=== PATIENT | female | born 1945 | race Caucasian/White ===

== ENCOUNTER 2017-11-18 13:16 | Emergency (ER) | payer MEDICARE ==
[2017-11-18 13:34] LABS: APPEARANCE,URINE CLEAR (CLEAR); BILIRUBIN,URINE NEGATIVE (NEGATIVE); COLOR,URINE YELLOW (YELLOW); GLUCOSE, URINE (UA) NEGATIVE (NEGATIVE); KETONES,URINE NEGATIVE (NEGATIVE); LEUKOCYTE ESTERASE ,URINE SMALL (NEGATIVE); NITRATE,URINE NEGATIVE (NEGATIVE); OCCULT BLOOD,URINE SMALL (NEGATIVE); PH,URINE 6.5 (5.0-8.0); PROTEIN,URINE NEGATIVE (NEGATIVE); UROBILINOGEN,URINE 0.2 mg/dL (0.2-1.0)
[2017-11-18 13:53] LABS: RBC,URINE 0-1 /HPF (0-1)
[2017-11-18 13:54] LABS: BACTERIA,URINE Rare /HPF (None Seen); SQUAMOUS EPITHELIAL CELL,UR Rare /LPF (0-2)
== END 2017-11-18 14:29 | disposition home or self-care (01) ==
LOC: EDH 13:16
DX: N39.0 Urinary tract infection, site not specified (principal)
CPT/HCPCS: 81001; 87088

== ENCOUNTER → 2019-04-30 | Outpatient (CLI) | payer OTHER | END | disposition home or self-care (01) | LOC: OIH 13:10 | PROVIDERS: ATTEND Internal Medicine Cardiovascular Disease | DX: Z13.6 Encounter for screening for cardiovascular disorders (principal) | CPT/HCPCS: 75571 ==

== ENCOUNTER 2021-03-16 11:27 | Emergency (ER) | payer MEDICARE, OTHER ==
[2021-03-16] MEDS ORDERED: IOHEXOL 350 MG/ML 100ML INFUS..BTL IV ONE (12:22)
[2021-03-16 12:32] LABS: BASOPHILS % (AUTO) 0.6 % (0.0-5.0); EOSINOPHILS % (AUTO) 2.5 % (0.0-8.0); HEMATOCRIT 37.9 % (36-48); LYMPHOCYTES % (AUTO) 16.3 % (21.0-51.0); MEAN CORPUSCULAR HEMOGLOBIN 29.3 pg (27.0-33.0); MEAN CORPUSCULAR HGB CONC 33.2 g/dL (32.0-36.0); MEAN CORPUSCULAR VOLUME 88.1 fL (79-99); MONOCYTES % (AUTO) 8.5 % (3.0-13.0); NEUTROPHILS % (AUTO) 71.7 % (40.0-77.0); PLATELET COUNT (AUTO) 188 K/uL (130-400); RED CELL DISTRIBUTION WIDTH 12.5 % (11.0-15.5); WHITE BLOOD COUNT (AUTO) 5.2 K/uL (4.8-10.8)
[2021-03-16 12:41] LABS: CREATININE 0.7 mg/dL (0.5-1.5); POTASSIUM 4.6 mmol/L (3.5-5.1)
[2021-03-16 12:43] LABS: INR 0.98 (0.85-1.15); PROTHROMBIN TIME 10.7 SEC (9.6-11.6)
[2021-03-16 12:45] LABS: PARTIAL THROMBOPLASTIN TIME 24.8 SEC (26.3-35.5)
[2021-03-16 12:46] LABS: ALBUMIN 3.6 g/dL (3.5-5.0); BILIRUBIN,TOTAL 0.4 mg/dL (0.2-1.0); TOTAL PROTEIN, SERUM 7.6 g/dL (6.0-8.3)
[2021-03-16] MEDS ORDERED: ACETAMINOPHEN-CODEINE 300/30MG TAB ONE (13:58)
[2021-03-16 14:09] LABS: APPEARANCE,URINE Clear (CLEAR); BILIRUBIN,URINE Negative (NEGATIVE); COLOR,URINE Yellow (YELLOW); GLUCOSE, URINE (UA) Negative (NEGATIVE); KETONES,URINE Negative (NEGATIVE); LEUKOCYTE ESTERASE ,URINE Negative (NEGATIVE); NITRATE,URINE Negative (NEGATIVE); OCCULT BLOOD,URINE Negative (NEGATIVE); PROTEIN,URINE Negative (NEGATIVE); UROBILINOGEN,URINE 0.2 mg/dL (0.2-1.0)
[2021-03-16 14:17] LABS: AMPHET/METH SCREEN,URINE NEGATIVE (NEGATIVE); BARBITURATE SCREEN, URINE NEGATIVE (NEGATIVE); BENZODIAZEPINES SCREEN,URINE NEGATIVE (NEGATIVE); CANNABINOID SCREEN,URINE NEGATIVE (NEGATIVE); COCAINE SCREEN,URINE NEGATIVE (NEGATIVE); OPIATE SCREEN,URINE NEGATIVE (NEGATIVE); PHENCYCLIDINE SCREEN,URINE NEGATIVE (NEGATIVE)
== END 2021-03-16 14:16 | disposition home or self-care (01) ==
LOC: EDH 11:27
DX: S10.83XA Contusion of other specified part of neck, initial encounter (principal); S80.12XA Contusion of left lower leg, initial encounter; S80.11XA Contusion of right lower leg, initial encounter; S09.90XA Unspecified injury of head, initial encounter; Z87.891 Personal history of nicotine dependence; V49.3XXA Car occupant (driver) (passenger) injured in unspecified nontraffic accident, initial encounter; Y93.89 Activity, other specified; Y92.89 Other specified places as the place of occurrence of the external cause; Y99.8 Other external cause status
CPT/HCPCS: 36415; 70450; 71045; 71260; 72040; 72125; 73590 ×2; 74177; 80053; 80305; 81003; 84484; 85025; 85610; 85730; 93005; 99285; Q9967

== ENCOUNTER → 2021-07-28 | Outpatient (CLI) | payer MEDICARE | END | disposition home or self-care (01) | LOC: RAH 12:26 | PROVIDERS: ATTEND Internal Medicine Pulmonary Disease | DX: J43.8 Other emphysema (principal); J98.4 Other disorders of lung; J47.9 Bronchiectasis, uncomplicated; R91.1 Solitary pulmonary nodule | CPT/HCPCS: 71250 ==

== ENCOUNTER → 2021-11-14 | Outpatient (CLI) | payer MEDICARE ==
[~2021-11-14] MED LIST: GADOTERATE MEGLUMINE 10 MMOL/20 ML VIAL IV ONE
== END | disposition home or self-care (01) ==
LOC: RAH 12:29
PROVIDERS: ATTEND Internal Medicine
DX: M47.26 Other spondylosis with radiculopathy, lumbar region (principal); M48.07 Spinal stenosis, lumbosacral region
CPT/HCPCS: 72148

== ENCOUNTER → 2022-01-05 | Outpatient (CLI) | payer MEDICARE | END | disposition home or self-care (01) | LOC: RAH 13:55 | PROVIDERS: ATTEND Internal Medicine Pulmonary Disease | DX: R91.1 Solitary pulmonary nodule (principal); I25.10 Atherosclerotic heart disease of native coronary artery without angina pectoris | CPT/HCPCS: 71250 ==

== ENCOUNTER → 2022-01-20 | Outpatient (CLI) | payer MEDICARE | END | disposition home or self-care (01) | LOC: RAH 12:46 | PROVIDERS: ATTEND Internal Medicine | DX: R13.10 Dysphagia, unspecified (principal) | CPT/HCPCS: 76536 ==

== ENCOUNTER → 2022-04-05 | Outpatient (CLI) | payer MEDICARE | END | disposition home or self-care (01) | LOC: RAH 10:41 | PROVIDERS: ATTEND Internal Medicine | DX: M47.816 Spondylosis without myelopathy or radiculopathy, lumbar region (principal); M47.817 Spondylosis without myelopathy or radiculopathy, lumbosacral region; I70.0 Atherosclerosis of aorta; G89.29 Other chronic pain; M54.9 Dorsalgia, unspecified | CPT/HCPCS: 72100 ==

== ENCOUNTER 2022-04-22 17:14 | Emergency (ER) | payer MEDICARE ==
[~2022-04-22] VITALS: Ht 157.5 cm; Wt 63.5 kg
[2022-04-22 17:16] VITALS: BP 154/62
[2022-04-22 17:56] LABS: APPEARANCE,URINE Cloudy (CLEAR); BILIRUBIN,URINE Negative (NEGATIVE); COLOR,URINE Yellow (YELLOW); GLUCOSE, URINE (UA) Negative (NEGATIVE); KETONES,URINE Negative (NEGATIVE); LEUKOCYTE ESTERASE ,URINE Large (NEGATIVE); NITRATE,URINE Negative (NEGATIVE); OCCULT BLOOD,URINE Large (NEGATIVE); PROTEIN,URINE Negative (NEGATIVE); UROBILINOGEN,URINE 0.2 mg/dL (0.2-1.0)
[2022-04-22] MEDS ORDERED: CEFTRIAXONE 1G VIAL IM ONE (18:00)
[2022-04-22] MEDS ORDERED: PHENAZOPYRIDINE HCL 200 MG TABLET PO ONE (18:00)
[2022-04-22 18:11] LABS: BACTERIA,URINE Few /HPF (None Seen); WBC,URINE 26-50 /HPF (0-1)
[2022-04-22 18:12] LABS: SQUAMOUS EPITHELIAL CELL,UR Rare /HPF (0-2)
[2022-04-22] MEDS ORDERED: CEPH500B PO (18:13)
[2022-04-22] MEDS ORDERED: PHEN-847 PO (18:13)
== END 2022-04-22 18:24 | disposition home or self-care (01) ==
LOC: EDH 17:14
DX: N39.0 Urinary tract infection, site not specified (principal); R30.0 Dysuria; I10 Essential (primary) hypertension
CPT/HCPCS: 81001; 87088; J0696

== ENCOUNTER 2022-06-21 20:19 | Emergency (ER) | payer MEDICARE ==
[~2022-06-21] VITALS: Ht 157.5 cm; Wt 58.5 kg
[~2022-06-21 20:19] MED LIST changes: +CEPH500B PO; -GADOTERATE MEGLUMINE 10 MMOL/20 ML VIAL IV ONE; +PHEN-847 PO
[2022-06-21 20:20] VITALS: BP 179/70
[2022-06-21] MEDS ORDERED: PHENAZOPYRIDINE HCL 200 MG TABLET PO ONE (21:00)
[2022-06-21] MEDS ORDERED: CEFTRIAXONE 1G VIAL IM ONE (21:00)
[2022-06-21 21:05] LABS: APPEARANCE,URINE CLEAR (CLEAR); BILIRUBIN,URINE NEGATIVE (NEGATIVE); COLOR,URINE YELLOW (YELLOW); GLUCOSE, URINE (UA) NEGATIVE (NEGATIVE); KETONES,URINE NEGATIVE (NEGATIVE); LEUKOCYTE ESTERASE ,URINE MODERATE (NEGATIVE); NITRATE,URINE NEGATIVE (NEGATIVE); OCCULT BLOOD,URINE TRACE-INTACT (NEGATIVE); PROTEIN,URINE NEGATIVE (NEGATIVE); UROBILINOGEN,URINE 0.2 mg/dL (0.2-1.0)
[2022-06-21] MEDS ORDERED: LIDOCAINE HCL 1% 20 ML VIAL ONE (21:06)
[2022-06-21] MEDS ORDERED: CEPH500B PO (21:12)
[2022-06-21] MEDS ORDERED: PHEN-847 PO (21:12)
[2022-06-21 21:23] LABS: BACTERIA,URINE Rare /HPF (None Seen); SQUAMOUS EPITHELIAL CELL,UR Rare /HPF (0-2)
== END 2022-06-21 21:23 | disposition home or self-care (01) ==
LOC: EDH 20:19
DX: N39.0 Urinary tract infection, site not specified (principal); R03.0 Elevated blood-pressure reading, without diagnosis of hypertension; Z90.49 Acquired absence of other specified parts of digestive tract; Z79.899 Other long term (current) drug therapy
CPT/HCPCS: 99283; 87088; 81001; 96372; J0696

== ENCOUNTER → 2022-07-03 | Outpatient (CLI) | payer MEDICARE | END | disposition home or self-care (01) | LOC: RAH 08:28 | PROVIDERS: ATTEND Internal Medicine | DX: N39.0 Urinary tract infection, site not specified (principal); N32.89 Other specified disorders of bladder | CPT/HCPCS: 76857 ==

== ENCOUNTER 2023-02-04 11:50 | Emergency (ER) | payer OTHER, MEDICARE ==
[~2023-02-04] VITALS: Ht 157.5 cm; Wt 53.5 kg
[2023-02-04 12:36] LABS: BASOPHILS % (AUTO) 0.5 % (0.0-5.0); EOSINOPHILS % (AUTO) 0.8 % (0.0-8.0); HEMATOCRIT 38.6 % (36-48); LYMPHOCYTES % (AUTO) 23.1 % (21.0-51.0); MEAN CORPUSCULAR HEMOGLOBIN 29.4 pg (27.0-33.0); MEAN CORPUSCULAR HGB CONC 32.6 g/dL (32.0-36.0); MEAN CORPUSCULAR VOLUME 90.2 fL (79-99); MONOCYTES % (AUTO) 9.4 % (3.0-13.0); PLATELET COUNT (AUTO) 174 K/uL (130-400); RED BLOOD CELL COUNT(AUTO) 4.28 MIL/uL (4.00-5.50); RED CELL DISTRIBUTION WIDTH 12.6 % (11.0-15.5); WHITE BLOOD COUNT (AUTO) 6.4 K/uL (4.8-10.8)
[2023-02-04 12:47] LABS: INR 0.93 (0.85-1.15); PROTHROMBIN TIME 10.2 SEC (9.6-11.6)
[2023-02-04 12:48] LABS: PARTIAL THROMBOPLASTIN TIME 25.7 SEC (26.3-35.5)
[2023-02-04 12:55] LABS: CREATININE 0.8 mg/dL (0.5-1.5); POTASSIUM 4.7 mmol/L (3.5-5.1)
[2023-02-04 13:05] LABS: ALBUMIN 3.7 g/dL (3.5-5.0); TOTAL PROTEIN, SERUM 7.6 g/dL (6.0-8.3)
[2023-02-04 13:55] VITALS: BP 172/68
[2023-02-04 14:28] LABS: APPEARANCE,URINE CLEAR (CLEAR); BILIRUBIN,URINE NEGATIVE (NEGATIVE); COLOR,URINE COLORLESS (YELLOW); GLUCOSE, URINE (UA) NEGATIVE (NEGATIVE); KETONES,URINE NEGATIVE (NEGATIVE); LEUKOCYTE ESTERASE ,URINE NEGATIVE Leu/uL (NEGATIVE); NITRATE,URINE NEGATIVE (NEGATIVE); OCCULT BLOOD,URINE NEGATIVE (NEGATIVE); PROTEIN,URINE NEGATIVE (NEGATIVE); UROBILINOGEN,URINE 0.2 mg/dL (0.2-1.0)
[2023-02-04] MEDS ORDERED: BISA-72 PO (14:48)
== END 2023-02-04 14:54 | disposition home or self-care (01) ==
LOC: EDH 11:50
DX: K59.00 Constipation, unspecified (principal); R10.32 Left lower quadrant pain; Z79.899 Other long term (current) drug therapy; Z87.440 Personal history of urinary (tract) infections; Z90.89 Acquired absence of other organs
CPT/HCPCS: 36415; 74176; 80053; 81003; 82550; 83874; 84484; 85025; 85610; 85730; 93005

== ENCOUNTER → 2023-10-23 | Outpatient (CLI) | payer OTHER ==
[~2023-10-23] MED LIST changes: +BISA-72 PO; +IOHEXOL 350 MG/ML 100ML INFUS..BTL IV ONE
== END | disposition home or self-care (01) ==
LOC: RAH 07:51
PROVIDERS: ATTEND Internal Medicine Cardiovascular Disease
DX: I73.9 Peripheral vascular disease, unspecified (principal); R91.1 Solitary pulmonary nodule; J84.10 Pulmonary fibrosis, unspecified; I25.10 Atherosclerotic heart disease of native coronary artery without angina pectoris
CPT/HCPCS: 75635; Q9967

== ENCOUNTER → 2024-09-10 | Outpatient (CLI) | payer OTHER ==
[~2024-09-10] MED LIST changes: -IOHEXOL 350 MG/ML 100ML INFUS..BTL IV ONE
[2024-09-10 12:32] LABS: ALBUMIN 3.9 g/dL (3.5-5.0); BILIRUBIN,TOTAL 0.5 mg/dL (0.2-1.0); POTASSIUM 5.4 mmol/L (3.5-5.1); TOTAL PROTEIN, SERUM 7.5 g/dL (6.0-8.3)
== END | disposition home or self-care (01) ==
LOC: LAB 10:56
PROVIDERS: ATTEND Student in an Organized Health Care Education/Training Program
DX: R07.89 Other chest pain (principal)
CPT/HCPCS: 36415; 80053

== ENCOUNTER → 2024-09-16 | Outpatient (CLI) | payer OTHER ==
[~2024-09-16] MED LIST changes: +IOHEXOL 350 MG/ML 100ML INFUS..BTL IV ONE; +metoPROLOL tartRATE 1 MG/ML 5ML VIAL IV ONE
--- NOTE | 2024-09-16 12:06 | HMCIMG ---
CT CARDIAC ANGIO W/CONT. CCTA REASON: CHEST PAIN COMPARISON: None TECHNIQUE: Images are obtained through the heart in the axial plane before and during bolus IV contrast infusion, 100 cc Omnipaque 350. 2-D and 3-D multiplanar reconstruction images were then performed. The injection had to be repeated once due to motion artifact on the first sequence, total contrast volume was 200 cc. FINDINGS: This dictation is for the noncardiac findings only. Cardiac and coronary artery findings are reported separately. Visualized portions of the lungs are clear. There is normal-appearing pulmonary interstitium. There is no hilar or mediastinal lymphadenopathy. Chest wall structures appear unremarkable. IMPRESSION: 1. Unremarkable noncardiac portions of CT cardiac angiography.
--- NOTE | 2024-09-17 20:41 | CARDIOLOGY ---
RAD REPORT: CORNARY CT ANGIO RADIOLOGY REPORT: CORONARY CT ANGIOGRAPHY DATE: Sep 17, 2024 QUALITY: Excellent CLINICAL HISTORY AND INDICATION: [chest pain ] TECHNIQUE: After obtaining a preliminary customer service security officer image, contrast imaging performed on an [employer] [id number] scanner. A dedicated, limited window, coronary imaging protocol was used, with single breath-hold, retrospective ECG gating, and automated arrhythmia rejection. 100 cc of low osmolar contrast agent: Omnipaque 350 was delivered via a 18-gauge IV catheter in the right antecubital fossa, using a power injector and followed by 60 cc of normal saline bolus as a chaser. Collimated images were reformatted at 0.5 mm intervals, and sent to an offline independent workstation for interpretation, using 3D anatomic reconstructions: Curved multiplanar reconstructions, maximum intensity projections, and multiplanar imaging. No metoprolol was administered prior to scanning due to low baseline heart rate. 0.4 mg SL nitroglycerin was given. CORONARY ARTERY DESCRIPTIONS: The coronary arteries arise in normal position. Left main coronary artery: Normal caliber vessel that bifurcates into the LAD and LCx. No stenosis. Left anterior descending coronary artery: Normal caliber vessel and gives rise to diagonal and septal branches. There is calcified plaque in the proximal LAD with 20-30% stenosis. There is calcified plaque in the mid LAD with 50% stenosis. Left circumflex coronary artery: Normal caliber, nondominant and gives rise to two OM branches. There is calcified plaque in the proximal LCx with 20-30% stenosis. Right coronary artery: Large, dominant vessel giving rise to the PL and PDA branches. There is calcified plaque in the proximal RCA with 20-30% stenosis. CAD-RADs: 3, moderate stenosis. Thoracic Aorta: Normal diameter. Suzan Miner MD Cardiovascular Disease [facility] SUZAN MINER MD Sep 17, 2024 20:41
== END | disposition home or self-care (01) ==
LOC: RAH 09:04
PROVIDERS: ATTEND Student in an Organized Health Care Education/Training Program
DX: R07.9 Chest pain, unspecified (principal)
CPT/HCPCS: 75574; J3490; Q9967

== ENCOUNTER → 2024-09-17 | Outpatient (CLI) | payer OTHER ==
[~2024-09-17] MED LIST changes: -IOHEXOL 350 MG/ML 100ML INFUS..BTL IV ONE; -metoPROLOL tartRATE 1 MG/ML 5ML VIAL IV ONE
== END | disposition home or self-care (01) ==
LOC: SHCH 11:01
PROVIDERS: ATTEND Student in an Organized Health Care Education/Training Program
DX: R01.1 Cardiac murmur, unspecified (principal)
CPT/HCPCS: 93306; 93880

== ENCOUNTER 2024-12-15 19:54 | Emergency (ER) | payer OTHER ==
[~2024-12-15] VITALS: Ht 157.5 cm; Wt 55.8 kg
--- NOTE | 2024-12-15 20:23 | ERN ---
General Chief Complaint: Hypertension Stated Complaint: HYPERTENSION Time Seen by MD: 19:55 Source: patient History of Present Illness Initial Comments Patient is a 79-year-old female coming in due to elevated blood pressure. Patient states that couple of days ago her coordinator integrated marketing made adjustments to her medications but she believes it is not working. She was checked her blood pressure on two separate occasions in his noticed the blood pressure in the 200s. Patient also states that she feels her heart racing. Allergies: Coded Allergies: No Known Allergies (Unverified Allergy, Unknown, 04/22/22) Home Meds Active Scripts Bisacodyl (Dulcolax) 5 Mg Tablet.dr, 10 MG PO BID for 10 Days, #30 TAB Prov:KAROLINE LEONE 02/04/23 Phenazopyridine HCl (Pyridium) 200 Mg Tab, 200 MG PO TIDPC, #9 TAB TAKE WITH FOOD TO PREVENT STOMACH UPSET. Prov:GLORY TRACY 06/21/22 Cephalexin Monohydrate (Keflex) 500 Mg Cap, 500 MG PO TID for 7 Days, #21 CAP Prov:GLORY TRACY 06/21/22 Phenazopyridine HCl (Pyridium) 200 Mg Tab, 200 MG PO TIDPC, #9 TAB TAKE WITH FOOD TO PREVENT STOMACH UPSET. Prov:GLORY TRACY 04/22/22 Cephalexin Monohydrate (Keflex) 500 Mg Cap, 500 MG PO TID for 7 Days, #21 CAP Prov:GLORY TRACY 04/22/22 Past Medical History Past Medical History: High Cholesterol, Heart Disease, Hypertension Medical History Other: PERIPHERIAL ARTERY DISEASE; STRESS TEST (06/20/22) Past Surgical History: Other Surgical History Other: TUBAL LIGATION; CARDIAC STENTS Family History Family History: Negative Social History Social History: Negative, Lives with family ROS Dictation CONSTITUTIONAL: No chills, no fever, no weakness, no diaphoresis, no malaise. HEAD/FACE: No signs of trauma. EENT: No eye pain, no blurred vision, no tearing, no double vision, no ear pain, no ear discharge, no nose pain, no nasal congestion, no throat pain, no throat swelling, no mouth pain. RESPIRATORY: No cough, no orthopnea, no SOB, no stridor, no wheezing. CARDIOVASCULAR: No chest pain, no edema, no palpitations, no syncope. GASTROINTESTINAL/ABDOMINAL: No abdominal pain, no constipation, no diarrhea, no nausea, no vomiting. GENITOURINARY: No abnormal discharge, no dysuria, no frequent urination, no hematuria. No complaints of pain in the genitals. MUSCULOSKELETAL: No back pain, no gout, no joint pain, no joint swelling, no muscle pain, no muscle stiffness, no neck pain. INTEGUMENTARY: No change in color, no change in hair/nails, no dryness, no lesion, no lumps, no rash. NEUROLOGICAL/PSYCH: No anxiety, not depressed, no emotional problem, no headache, no numbness, no pre-existing deficit, no history of seizures, no tremors, no weakness. HEMATOLOGIC/LYMPHATIC: Not anemic, no history of blood clots, no apparent bleeding, no bruising, glands not swollen. All Systems Negative, Except as Noted. Physical Exam Physical Exam Dictation VITAL SIGNS: Reviewed. GENERAL APPEARANCE: Alert, oriented x3, no acute distress, obese. HEAD AND FACE: Non-traumatic. EYES: PERRL, pink conjunctivas, eyelid no trauma, anterior chamber clear. EARS: Pinnas intact and no signs of trauma or erythema. Ear canals clear and no discharge. TMs no erythema. NOSE: No discharge, no bleeding. OROPHARYNX: Mouth normal, teeth no caries, tongue pink. Pharynx clear, no erythema. Tonsils no exudates, no abscesses noted. Mucous membrane moist. NECK: Supple, non-tender, no thyromegaly, no masses, no JVD, no bruits. BREAST: Deferred. CHEST: No tenderness, no crepitus, no paradoxical movement, no retractions. LUNGS: Clear, well-ventilated, symmetric, no rales, no wheezing, no rhonchi, no stridor, good breath sounds bilaterally. HEART: Regular rate, regular rhythm, no murmur, no gallops. VASCULAR: No peripheral edema. ABDOMEN: Soft, positive bowel sounds, nondistended, no guarding, nontender, no r ebound, no masses no hepatomegaly, no splenomegaly, no Uribe's sign, no hernias. RECTAL: Deferred. GENITAL: Deferred. NEUROLOGICAL: Normal speech, gross motor function intact, gross sensory function intact. MUSCULOSKELETAL: Neck nontender, full range of motion, back nontender, full range of motion. EXTREMITIES: Nontender, full range of motion. SKIN: Color pink, dry, no turgor, no rash, no lacerations, no abrasions, no contusions. LYMPHATICS: Deferred. Results Laboratory and Microbiology Lab and Micro Result Laboratory Tests Test 12/15/24 20:24 12/15/24 22:50 White Blood Count 5.4 K/uL (4.8-10.8) Red Blood Count 4.02 MIL/uL (4.00-5.50) Hemoglobin 11.7 g/dL (12.0-16.0) L Hematocrit 36.0 % (36-48) Mean Corpuscular Volume 89.6 fL (79-99) Mean Corpuscular Hemoglobin 29.1 pg (27.0-33.0) Mean Corpuscular Hemoglobin Concent 32.5 g/dL (32.0-36.0) Red Cell Distribution Width 12.7 % (11.0-15.5) Platelet Count 172 K/uL (130-400) Mean Platelet Volume 10.6 fL (7.5-10.5) H Immature Granulocyte % (Auto) 0.0 % (0-1) Neutrophils (%) (Auto) 61.5 % (40.0-77.0) Lymphocytes (%) (Auto) 24.7 % (21.0-51.0) Monocytes (%) (Auto) 10.7 % (3.0-13.0) Eosinophils (%) (Auto) 2.4 % (0.0-8.0) Basophils (%) (Auto) 0.7 % (0.0-5.0) Neutrophils # (Auto) 3.3 K/uL (1.8-7.7) Lymphocytes # (Auto) 1.3 K/uL (1.0-4.8) Monocytes # (Auto) 0.6 K/uL (0.1-1.0) Eosinophils # (Auto) 0.13 K/uL (0.00-0.70) Basophils # (Auto) 0.04 K/uL (0.00-0.20) Absolute Immature Granulocyte (auto 0.00 K/uL (0-1) Nucleated Red Blood Cells 0.0 % (0.0-0.19) Sodium Level 140 mmol/L (136-145) Potassium Level 4.4 mmol/L (3.5-5.1) Chloride Level 103 mmol/L (101-111) Carbon Dioxide Level 32 mmol/L (21-32) Blood Urea Nitrogen 20 mg/dL (7-18) H Creatinine 0.8 mg/dL (0.5-1.0) Glomerular Filtration Rate Calc 76 mL/min (>90) Random Glucose 122 mg/dL (70-105) H Total Calcium 8.9 mg/dL (8.5-10.1) Total Bilirubin 0.3 mg/dL (0.2-1.0) Aspartate Amino Transf (AST/SGOT) 22 U/L (10-37) Alanine Aminotransferase (ALT/SGPT) 20 U/L (12-78) Alkaline Phosphatase 61 U/L (50-136) Troponin I High Sensitivity 12 ng/L (4-50) Total Protein 7.5 g/dL (6.0-8.3) Albumin 3.7 g/dL (3.5-5.0) Urine Color LIGHT-YELLOW (YELLOW) Urine Appearance CLEAR (CLEAR) Urine pH 8.0 (5.0-8.0) Urine Specific Dwight 1.006 (1.001-1.031) Urine Protein NEGATIVE mg/dL (NEGATIVE) Urine Glucose (UA) NEGATIVE mg/dL (NEGATIVE) Urine Ketones NEGATIVE mg/dL (NEGATIVE) Urine Occult Blood NEGATIVE (NEGATIVE) Urine Nitrate NEGATIVE (NEGATIVE) Urine Bilirubin NEGATIVE mg/dL (NEGATIVE) Urine Urobilinogen 0.2 mg/dL (0.2-1.0) Urine Leukocyte Esterase 500 Quentin/uL (NEGATIVE) H Urine RBC 2-5 /HPF (0-1) H Urine WBC 26-50 /HPF (0-1) H Urine Squamous Epithelial Cells RARE /HPF (0-2) Urine Bacteria None /HPF (None Seen) Urine Yeast RARE /HPF (None Seen) Labs Reviewed?: Yes EKG/XRAY/US/CT/MRI EKG Comment 12/15/2024 time 8:02 p.m. Ventricular rate [address] wave elevation or depression X-RAY Comment Chest x-ray-NAD [facility] MDM: Differential diagnosis: Hypertension, UTI, wellness exam, medication side effect Patient is a 79-year-old female coming in to be evaluated for elevated blood pressure. Patient states he was on losartan for many years. She was recently told to switch over to hydralazine by coordinator integrated marketing due to elevated potassium. Patient states since he has done that she does not feel well and does not like the medication. Blood pressure was 2 0s initially patient took her home meds blood pressure was normalized. Laboratory workup positive for urinary tract infection as well. Patient will be discharged in stable condition with a diagnosis of UTI and elevated blood pressure. I did advised her to continue taking her blood pressure medication that worked which was losartan. ED Course Orders Procedure Category Date Status Time 12 Lead Ekg Tracing- EKG 12/15/24 Logged Technical 20:06 Cbc With Differential LAB 12/15/24 Complete 20:10 Comprehensive LAB 12/15/24 Complete Metabolic Panel 20:10 12 Lead Ekg Tracing- EKG 12/15/24 Logged Technical 20:10 Troponin I High LAB 12/15/24 Complete Sensitivity 20:10 Urinalysis Profile LAB 12/15/24 Complete 20:10 Chest 1vw RAD 12/15/24 Taken 20:10 Hydralazine 20mg Inj PHA 12/15/24 Complete (Apresoline 20mg In 20:30 Culture Urine ROCIO 12/15/24 In Process 23:05 Ceftriaxone 1g Vial PHA 12/15/24 Complete (Rocephine 1g Inj) 23:30 Current Medications Medications (Trade) Dose Ordered Sig/Amy Route PRN Reason Start Time Stop Time Status Last Admin Dose Admin Ceftriaxone Sodium (ROCEphine 1G INJ) 1 gm ONCE ONCE IVPB 12/15/24 23:30 12/15/24 23:31 DC 12/15/24 23:26 Hydralazine HCl (APRESOLine 20MG INJ) 20 mg ONCE ONCE IV 12/15/24 20:30 12/15/24 20:31 DC 12/15/24 20:27 Vital Signs Date Time Temp Pulse Resp B/P (MAP) Pulse Ox O2 Delivery O2 Flow Rate FiO2 12/15/24 23:23 98.2 80 18 164/60 98 Room Air* 0 21 12/15/24 22:33 98.4 81 20 165/68 98 Room Air* 0 21 12/15/24 21:42 98.4 85 20 189/75 98 Room Air* 0 21 12/15/24 20:43 98.4 81 20 167/56 99 Room Air* 0 21 12/15/24 19:59 97.5 97 20 221/76 98 Room Air DX & DISP Disposition: Discharge Departure Impression: Primary Impression: Elevated blood pressure reading Additional Impression: Urinary tract infection Condition: Stable Additional Instructions: FOLLOW-UP WITH PRIMARY CARE PROVIDER IN 1 TO 2 DAYS. TAKE MEDICATIONS DIRECTED HERE IN THE EMERGENCY ROOM. OKAY TO CONTINUE HOME MEDICATIONS UNLESS OTHERWISE DISCUSSED DURING YOUR VISIT IN THE EMERGENCY ROOM TODAY. RETURN TO YOUR NEAREST EMERGENCY ROOM IF SYMPTOMS WORSEN OR IF THERE IS NO IMPROVEMENT. CALL 911 IF YOU NEED IMMEDIATE ASSISTANCE. TAKE TYLENOL [id number] NEEDED AND IF NO CONTRAINDICATIONS ARE PRESENT. INCREASE ORAL HYDRATION. A WOUND CULTURE OR URINE CULTURE WAS ORDERED HERE IN THE EMERGENCY ROOM DEPARTMENT PLEASE FOLLOW-UP WITH PRIMARY CARE PROVIDER AND ADVISE THEM TO GET REPEAT PORTS FROM OUR FACILITY. IF YOU HAD ANY MASSIMO WRAP/SPLINTS THAT WERE APPLIED HERE, PLEASE DO NOT REMOVE THEM UNTIL YOU SEE YOUR PRIMARY CARE OR SPECIALTY. Referrals: Referrals: ARSENIO SPEARS MD (PCP) Time of Disposition: 23:34 NICOLE NANCE MD Dec 15, 2024 20:23
[2024-12-15] MEDS: hydrALAZine 20MG/ML VIAL IV ONE (20:27)
[2024-12-15 20:33] LABS: BASOPHILS # (AUTO) 0.04 K/uL (0.00-0.20); BASOPHILS % (AUTO) 0.7 % (0.0-5.0); EOSINOPHILS # (AUTO) 0.13 K/uL (0.00-0.70); EOSINOPHILS % (AUTO) 2.4 % (0.0-8.0); LYMPHOCYTES # (AUTO) 1.3 K/uL (1.0-4.8); LYMPHOCYTES % (AUTO) 24.7 % (21.0-51.0); MEAN CORPUSCULAR HEMOGLOBIN 29.1 pg (27.0-33.0); MEAN CORPUSCULAR HGB CONC 32.5 g/dL (32.0-36.0); MEAN CORPUSCULAR VOLUME 89.6 fL (79-99); MONOCYTES # (AUTO) 0.6 K/uL (0.1-1.0); MONOCYTES % (AUTO) 10.7 % (3.0-13.0); NEUTROPHILS # (AUTO) 3.3 K/uL (1.8-7.7); NEUTROPHILS % (AUTO) 61.5 % (40.0-77.0); PLATELET COUNT (AUTO) 172 K/uL (130-400); RED BLOOD CELL COUNT(AUTO) 4.02 MIL/uL (4.00-5.50); RED CELL DISTRIBUTION WIDTH 12.7 % (11.0-15.5); WHITE BLOOD COUNT (AUTO) 5.4 K/uL (4.8-10.8)
[2024-12-15 20:56] LABS: CREATININE 0.8 mg/dL (0.5-1.0); POTASSIUM 4.4 mmol/L (3.5-5.1)
[2024-12-15 21:01] LABS: BILIRUBIN,TOTAL 0.3 mg/dL (0.2-1.0)
[2024-12-15 21:02] LABS: ALBUMIN 3.7 g/dL (3.5-5.0); TOTAL PROTEIN, SERUM 7.5 g/dL (6.0-8.3)
[2024-12-15 23:02] LABS: APPEARANCE,URINE CLEAR (CLEAR); BILIRUBIN,URINE NEGATIVE (NEGATIVE); COLOR,URINE LIGHT-YELLOW (YELLOW); GLUCOSE, URINE (UA) NEGATIVE (NEGATIVE); KETONES,URINE NEGATIVE (NEGATIVE); LEUKOCYTE ESTERASE ,URINE 500 Leu/uL (NEGATIVE); NITRATE,URINE NEGATIVE (NEGATIVE); OCCULT BLOOD,URINE NEGATIVE (NEGATIVE); PROTEIN,URINE NEGATIVE (NEGATIVE); UROBILINOGEN,URINE 0.2 mg/dL (0.2-1.0)
[2024-12-15 23:05] LABS: ADD UA MICROSCOPIC YES
[2024-12-15 23:13] LABS: SQUAMOUS EPITHELIAL CELL,UR RARE /HPF (0-2); WBC,URINE 26-50 /HPF (0-1); YEAST,URINE BUDDING RARE /HPF (None Seen)
[2024-12-15 23:23] VITALS: BP 164/60; PULSE 80; RESP 18; TEMP 98.3; O2SAT 98
[2024-12-15] MEDS: cefTRIAXone 1G VIAL IVPB ONE (23:26)
[2024-12-15] MEDS ORDERED: CEPH500B PO (23:35)
--- NOTE | 2024-12-16 00:08 | HMCIMG ---
CHEST 1VW HISTORY: Elevated blood pressure COMPARISON: None FINDINGS: A frontal projection of the chest was obtained. There are bilateral pulmonary infiltrates suggestive of pulmonary vascular congestion with possible superimposed pneumonitis. The heart is borderline enlarged. Degenerative changes are seen. No evidence of aortic calcification is seen. IMPRESSION: 1. Bilateral pulmonary infiltrates are seen suggestive of pulmonary vascular congestion with possible superimposed pneumonitis.
--- NOTE | 2024-12-16 06:55 | EKG ---
[facility] Test Date: 2024-12-15 Test Time: 20:02:58 Pat Name: KARENA ROBB Department: ED Room: Gender: F Able Bodied Seaman: [id number] : 1945 Requested By: NICOLE NANCE Order Number: [id number] Reading MD: Mike Robertson Measurements Intervals [place] Rate: 85 P: 70 ME: 128 QRS: 37 QRSD: 89 T: 57 QT: 382 QTc: 454 Interpretive Statements Sinus rhythm Probable left atrial enlargement Compared to ECG 02/04/2023 12:38:50 No significant changes Electronically Signed On 12-17-2024 07:35:32 REFERRAL RN by Mike Robertson Please click the below link to view image of tracing.
== END 2024-12-15 23:47 | disposition home or self-care (01) ==
LOC: EDH 19:54
DX: I10 Essential (primary) hypertension (principal); N39.0 Urinary tract infection, site not specified; E78.00 Pure hypercholesterolemia, unspecified; Z95.5 Presence of coronary angioplasty implant and graft; Z98.51 Tubal ligation status; Z79.899 Other long term (current) drug therapy
CPT/HCPCS: 99284; 96374; 71045; 96375; 84484; 80053; 85025; 87086 ×2; 87186; 81001; 36415; 93005; J0360; J0696

== ENCOUNTER 2024-12-18 21:44 | Emergency (ER) | payer OTHER ==
[~2024-12-18] VITALS: Ht 157.5 cm; Wt 58.1 kg
--- NOTE | 2024-12-18 22:05 | NUR ---
ASSUMED PT CARE AT THIS TIME
[2024-12-18] MEDS: LAbetaLOL 20MG SYG IV ONE (22:38)
--- NOTE | 2024-12-18 22:38 | HMCIMG ---
CT HEAD/BRAIN W/O CONTRAST HISTORY: Visual changes, hypertensive urgency COMPARISON: None TECHNIQUE: Multiple sequential axial images of the head were obtained from the base of the skull through vertex. Patient was not given contrast through intravenous route. FINDINGS: The ventricles and extraventricular CSF spaces are nondilated for patient's age. There is no midline shift, mass effect or herniation. No acute intracranial bleed is seen. Visualized portion of the paranasal sinuses are grossly within normal limits. IMPRESSION: 1. No acute intracranial bleed is seen. CT was performed with one or more following dose reduction techniques: automated exposure control, adjustment of the mA and kv according to patient's size, or use of a iterative reconstruction technique.
[2024-12-18 22:41] LABS: BASOPHILS # (AUTO) 0.04 K/uL (0.00-0.20); BASOPHILS % (AUTO) 0.9 % (0.0-5.0); EOSINOPHILS # (AUTO) 0.13 K/uL (0.00-0.70); EOSINOPHILS % (AUTO) 2.9 % (0.0-8.0); IMMATURE GRANULOCYTE ABSOLUTE 0.01 K/uL (0-1); LYMPHOCYTES # (AUTO) 1.6 K/uL (1.0-4.8); LYMPHOCYTES % (AUTO) 36.3 % (21.0-51.0); MEAN CORPUSCULAR HEMOGLOBIN 29.2 pg (27.0-33.0); MEAN CORPUSCULAR HGB CONC 32.8 g/dL (32.0-36.0); MEAN CORPUSCULAR VOLUME 89.1 fL (79-99); MONOCYTES # (AUTO) 0.6 K/uL (0.1-1.0); MONOCYTES % (AUTO) 13.9 % (3.0-13.0); NEUTROPHILS % (AUTO) 45.8 % (40.0-77.0); PLATELET COUNT (AUTO) 153 K/uL (130-400); RED BLOOD CELL COUNT(AUTO) 4.04 MIL/uL (4.00-5.50); RED CELL DISTRIBUTION WIDTH 12.6 % (11.0-15.5); WHITE BLOOD COUNT (AUTO) 4.5 K/uL (4.8-10.8)
[2024-12-18 22:58] LABS: MAGNESIUM 2.1 mg/dL (1.80-2.40)
[2024-12-18 23:46] LABS: B-TYPE NATRIURETIC PEPTIDE 62 pg/mL (0-100)
[2024-12-19 00:02] LABS: CREATININE 0.8 mg/dL (0.5-1.0)
--- NOTE | 2024-12-19 00:58 | ERN ---
General Chief Complaint: Hypertension Stated Complaint: C/O HIGH B/P WITH HEADACHE Time Seen by MD: 21:48 Time Seen by Midlevel: 21:48 Source: patient History of Present Illness Initial Comments Patient is a 79-year-old female with a past medical history of hypertension presenting to the emergency department with an elevated blood pressure reading. The patient states she was at home when she developed a slight headache that reports checking her blood pressure and received a systolic blood pressure over 200. She immediately reported to the emergency department. Patient states that for the last couple of weeks she has been seeing her tieing machine operator who has been adjusting medications. She was previously on hydrochlorothiazide but that was stopped and she was on losartan 50 mg daily. She was supposed to start amlodipine tomorrow. Today she does report taking her losartan 50 mg. On arrival she reports a slight headache but denies any other symptoms at this time. Allergies: Coded Allergies: No Known Allergies (Unverified Allergy, Unknown, 04/22/22) Home Meds Active Scripts Clonidine HCl (Clonidine HCl) 0.1 Mg Tablet, 1 TAB PO BID for 5 Days, #10 TAB 0 Refills Take one tablet as needed for blood pressure of over 180 systolic. Prov:SPIKE RAMIREZ 12/19/24 Cephalexin Monohydrate (Keflex) 500 Mg Cap, 1 CAP PO BID for 10 Days, #20 CAP 0 Refills Prov:NICOLE NANCE MD 12/15/24 Bisacodyl (Dulcolax) 5 Mg Tablet.dr, 10 MG PO BID for 10 Days, #30 TAB Prov:KAROLINE LEONE 02/04/23 Phenazopyridine HCl (Pyridium) 200 Mg Tab, 200 MG PO TIDPC, #9 TAB TAKE WITH FOOD TO PREVENT STOMACH UPSET. Prov:GLORY TRACY 06/21/22 Cephalexin Monohydrate (Keflex) 500 Mg Cap, 500 MG PO TID for 7 Days, #21 CAP Prov:GLROY TRACY 06/21/22 Phenazopyridine HCl (Pyridium) 200 Mg Tab, 200 MG PO TIDPC, #9 TAB TAKE WITH FOOD TO PREVENT STOMACH UPSET. Prov:GLORY TRACY 04/22/22 Cephalexin Monohydrate (Keflex) 500 Mg Cap, 500 MG PO TID for 7 Days, #21 CAP Prov:TRACYDAVID CrystalGLORY PA 04/22/22 Past Medical History Past Medical History: High Cholesterol, Heart Disease Medical History Other: PERIPHERIAL ARTERY DISEASE; STRESS TEST (06/20/22) Past Surgical History: Other Surgical History Other: CARDIAC STENT Family History Family History: Negative Social History Social History: Negative, Lives with family ROS Dictation CONSTITUTIONAL: Negative except for HPI HEAD/FACE: Negative except for HPI EENT: Negative except for HPI RESPIRATORY: Negative except for HPI GASTROINTESTINAL/ABDOMINAL: Negative except for HPI GENITOURINARY: Negative except for HPI MUSCULOSKELETAL: Negative except for HPI INTEGUMENTARY: Negative except for HPI NEUROLOGICAL/PSYCH: Negative except for HPI HEMATOLOGIC/LYMPHATIC: Negative except for HPI All Systems Negative, Except as noted above. 13 point review of systems assessed and all negative except for above. Physical Exam Physical Exam Dictation Vital Signs reviewed General Appearance: Alert, oriented x 3, no acute distress, well developed, nourished. Head and Face: non-traumatic. Eyes: PERRL, pink conjunctivas, eyelid no trauma, anterior chamber with arcus senilis. Ears: Pinnas intact and no signs of trauma or erythema ear canals clear and no discharge TM no erythema Nose: No discharge, no bleeding. Oropharynx: Mouth normal, tongue pink, pharynx clear,no erythema, tonsils no exudates, no abscesses noted, mucous membrane moist Neck: Supple, non-tender, no thyromegaly, no masses, no JVD, no bruits Breast:Deferred Chest:No tenderness, no crepitus, no paradoxical movement, no retractions Lungs:Clear, well-ventilated, symmetric, no rales, no wheezing, no rhonchi, no stridor, good breath sounds bilaterally Heart: Regular rate, regular rhythm, no murmur, no gallops Vascular: no peripheral edema, Abdomen: Soft, positive bowel sounds, nondistended, no guarding, nontender, no rebound, no masses no hepatomegaly, no splenomegaly, no Uribe's sign, no hernias. Rectal: Deferred Genital: Deferred Neurological: Normal speech, motor function intact, sensory function intact Musculoskeletal: Neck nontender, full range of motion, back nontender, full range of motion, Extremities: nontender, full range of motion Skin: Color pink, dry, no turgor, no rash, no lacerations, no abrasions, no contusions. Lymphatic: Deferred Results Laboratory and Microbiology Lab and Micro Result Laboratory Tests Test 12/18/24 22:33 White Blood Count 4.5 K/uL (4.8-10.8) L Red Blood Count 4.04 MIL/uL (4.00-5.50) Hemoglobin 11.8 g/dL (12.0-16.0) L Hematocrit 36.0 % (36-48) Mean Corpuscular Volume 89.1 fL (79-99) Mean Corpuscular Hemoglobin 29.2 pg (27.0-33.0) Mean Corpuscular Hemoglobin Concent 32.8 g/dL (32.0-36.0) Red Cell Distribution Width 12.6 % (11.0-15.5) Platelet Count 153 K/uL (130-400) Mean Platelet Volume 10.7 fL (7.5-10.5) H Immature Granulocyte % (Auto) 0.2 % (0-1) Neutrophils (%) (Auto) 45.8 % (40.0-77.0) Lymphocytes (%) (Auto) 36.3 % (21.0-51.0) Monocytes (%) (Auto) 13.9 % (3.0-13.0) H Eosinophils (%) (Auto) 2.9 % (0.0-8.0) Basophils (%) (Auto) 0.9 % (0.0-5.0) Neutrophils # (Auto) 2.0 K/uL (1.8-7.7) Lymphocytes # (Auto) 1.6 K/uL (1.0-4.8) Monocytes # (Auto) 0.6 K/uL (0.1-1.0) Eosinophils # (Auto) 0.13 K/uL (0.00-0.70) Basophils # (Auto) 0.04 K/uL (0.00-0.20) Absolute Immature Granulocyte (auto 0.01 K/uL (0-1) Nucleated Red Blood Cells 0.0 % (0.0-0.19) Sodium Level 136 mmol/L (136-145) Potassium Level 4.0 mmol/L (3.5-5.1) Chloride Level 102 mmol/L (101-111) Carbon Dioxide Level 29 mmol/L (21-32) Blood Urea Nitrogen 15 mg/dL (7-18) Creatinine 0.8 mg/dL (0.5-1.0) Glomerular Filtration Rate Calc 76 mL/min (>90) Random Glucose 97 mg/dL (70-105) Total Calcium 8.8 mg/dL (8.5-10.1) Magnesium Level 2.10 mg/dL (1.80-2.40) Total Creatine Kinase 58 U/L (21-232) Troponin I High Sensitivity 9 ng/L (4-50) B-Type Natriuretic Peptide 62 pg/mL (0-100) Labs Reviewed?: Yes MDM MDM: 79-year-old female coming in with uncontrolled hypertension. Initial blood pressure was over 220 systolic. The patient was given 10 mg of hyd ralazine IV. Cardiac workup was initiated which is unremarkable. CBC and chemistries are stable. Cardiac enzymes are normal. EKG does not show any ST elevation [place]. Given the patient has had a blood pressure of 220 along with headache a CT scan of the head was ordered which does not show any acute intracranial abnormality. On repeat examination blood pressure is improving. We will give a short course of clonidine p.o. for outpatient management. Her blood pressures over 180 patient was advised to take one clonidine as needed. Patient will be following up with the cardiology for further evaluation. Differential diagnosis: Hypertensive urgency, hypertensive emergency, uncontrolled hypertension There are no social concerns with this patient. Prescription drug management Prescriptions will include: Clonidine Medical management and examination interpretation discussions were had by me with other qualified healthcare professionals as indicated for the patient's care. ED Course Orders Procedure Category Date Status Time Ekg Prn For Chest Pain CPOE 12/18/24 Transmitted 21:51 12 Lead Ekg Tracing- EKG 12/18/24 Logged Technical 21:54 Cbc With Differential LAB 12/18/24 Complete 21:54 Basic Metabolic Panel LAB 12/18/24 Complete 21:54 B-Type Natriuretic LAB 12/18/24 Complete Peptide 21:54 Creatine Kinase, Total LAB 12/18/24 Complete 21:54 Magnesium LAB 12/18/24 Complete 21:54 Troponin I High LAB 12/18/24 Complete Sensitivity 21:54 Chest 1vw RAD 12/18/24 Taken 21:54 Labetalol 20mg Syg PHA 12/18/24 Complete (Trandate 20mg Syg) 22:00 Ct Head/Brain W/O CT 12/18/24 Resulted Contrast 21:54 Clonidine Hcl 0.1 Mg PHA 12/19/24 Complete Tablet (Catapres 0. 01:00 Current Medications Medications (Trade) Dose Ordered Sig/Amy Route PRN Reason Start Time Stop Time Status Last Admin Dose Admin Clonidine HCl (CATApres 0.1 mg TAB) 0.1 mg ONCE ONCE PO 12/19/24 01:00 12/19/24 01:01 DC Labetalol HCl (TRANdate 20MG SYG) 10 mg ONCE ONCE IV 12/18/24 22:00 12/18/24 22:01 DC 12/18/24 22:38 Vital Signs Date Time Temp Pulse Resp B/P (MAP) Pulse Ox O2 Delivery O2 Flow Rate FiO2 12/19/24 01:34 98.2 64 16 144/58 99 Room Air* 0 12/19/24 00:56 63 16 165/57 97 Room Air* 0 12/18/24 23:23 68 14 155/66 98 Room Air* 0 12/18/24 23:15 64 12 180/75 98 Room Air* 0 12/18/24 22:38 66 210/80 12/18/24 22:37 98.1 66 14 210/80 99 Room Air* 0 12/18/24 21:45 97.3 72 20 227/82 98 Room Air DX & DISP Disposition: Discharge Departure Impression: Primary Impression: Elevated blood pressure reading Condition: Stable Scripts Clonidine HCl (Clonidine HCl) 0.1 Mg Tablet 1 TAB PO BID for 5 Days, #10 TAB 0 Refills Take one tablet as needed for blood pressure of over 180 systolic. Prov: SPIKE RAMIREZ 12/19/24 Additional Instructions: Your blood work today is unremarkable. Your cardiac enzymes are negative. Your EKG is normal. Your chest x-ray is normal. You were given blood pressure medication in the emergency department. Follow up with the tieing machine operator for continued blood pressure medication adj ustment. Return to the ER for any new or worsening symptoms Referrals: ARSENIO SPEARS MD (PCP) Time of Disposition: 00:57 I have reviewed the case, and I agree with, Diagnosis and Plan I performed the substantive portion of the visit. I have reviewed and personally made and approve the management plan that is documented in the note by myself or the SATHYA. I acknowledge for responsibility for the patient's management plan. SPIKE RAMIREZ Dec 19, 2024 00:58
[2024-12-19] MEDS ORDERED: CLON0.1T PO (01:17)
[2024-12-19 01:34] VITALS: BP 144/58; PULSE 64; RESP 16; TEMP 98.2; O2SAT 99
[2024-12-19] MEDS: cloNIDine HCL 0.1 MG TABLET PO ONE (01:35)
--- NOTE | 2024-12-19 06:33 | EKG ---
[facility] Test Date: 2024-12-18 Test Time: 21:49:10 Pat Name: KARENA ROBB Department: [facility] Room: Gender: F Head Batcher: [id number] : 1945 Requested By: SPIKE RAMIREZ Order Number: [id number] Reading MD: Suzan Miner Measurements Intervals [place] Rate: 72 P: 72 DE: 148 QRS: 25 QRSD: 85 T: 40 QT: 404 QTc: 444 Interpretive Statements Sinus rhythm Compared to ECG 12/15/2024 20:02:58 No significant changes Electronically Signed On 12-20-2024 08:39:57 DAIRY FARMWORKER by Suzan Miner Please click the below link to view image of tracing.
--- NOTE | 2024-12-19 09:51 | HMCIMG ---
CHEST 1VW HISTORY: Chest pain COMPARISON: 12/15/2024 FINDINGS: A frontal projection of the chest was obtained. No acute pulmonary infiltrates is seen. The heart is borderline enlarged. Degenerative changes are seen. No evidence of aortic calcification is seen. IMPRESSION: 1. No acute pulmonary infiltrate is seen.
== END 2024-12-19 01:36 | disposition home or self-care (01) ==
LOC: EDH 21:44
DX: I10 Essential (primary) hypertension (principal); R51.9 Headache, unspecified; E78.00 Pure hypercholesterolemia, unspecified; Z95.5 Presence of coronary angioplasty implant and graft
CPT/HCPCS: 36415; 70450; 71045; 80048; 82550; 83735; 83880; 84484; 85025; 93005; 96374; 99284

== ENCOUNTER → 2025-01-20 | Outpatient (CLI) | payer OTHER ==
[~2025-01-20] MED LIST changes: +CLON0.1T PO
--- NOTE | 2025-01-20 10:42 | HMCIMG ---
DEXA BONE DENSITY SURVEY HISTORY: Menopause COMPARISON: None FINDINGS: Bone densitometry study was performed. Bone mineral density of the lumbar spine is 0.974 gram per centimeter square which corresponds to a T score of -0.7 and a Z score of 1.9. Bone mineral density of the left hip is 0.557 grams per centimeter square which corresponds to a T score of -3.2 and a Z score of -1.2. IMPRESSION: 1. Normal bone mineral density of the lumbar spine and osteoporosis of left hip.
== END | disposition home or self-care (01) ==
LOC: RAH 09:48
PROVIDERS: ATTEND Internal Medicine
DX: M81.0 Age-related osteoporosis without current pathological fracture (principal); N95.9 Unspecified menopausal and perimenopausal disorder
CPT/HCPCS: 77080

== ENCOUNTER 2025-06-15 21:23 | Emergency (ER) | payer OTHER ==
[~2025-06-15] VITALS: Ht 157.5 cm; Wt 55.8 kg
--- NOTE | 2025-06-15 21:33 | ERN ---
ED Note History of Present Illness Stated Complaint: C/O HIGH B/P Chief Complaint: Hypertension Time Seen by MD: 21:27 Dictation: PATIENT IS A 80-YEAR-OLD FEMALE COMING IN WITH A WITH COMPLAINTS OF ELEVATED BLOOD PRESSURE, GREATER THAN 200 SYSTOLIC OVER THE LAST COUPLE OF DAYS. HER LAST BLOOD PRESSURE AT HOME WAS 221/78. SHE TAKES CARVEDILOL 6.25 MG B.I.D. AND SEES DR. RD JUNIOR. SHE CALLED HER PRIMARY CARE DOCTOR TODAY DR. SPEARS AND WAS ADVISED TO TAKE AN ADDITIONAL DOSE OF THE BLOOD PRESSURE MEDICATION. HOWEVER SHE SAID SHE HAS BEEN BRADYCARDIC RECENTLY AND WAS WORRIED THAT IT MAY SLOW DOWN HER HEART RATE IS DECIDED COME TO HOSPITAL. HE HAS NOTED THAT SHE HAS SWELLING AND EDEMA TO HER LOWER EXTREMITIES NO SHORTNESS BREATH NO CHEST PAIN NO BACK PAIN NO SOB. Allergies: Coded Allergies: No Known Allergies (Unverified Allergy, Unknown, 04/22/22) Home Meds Active Scripts Clonidine HCl (Clonidine HCl) 0.1 Mg Tablet, 1 TAB PO BID for 5 Days, #10 TAB 0 Refills Take one tablet as needed for blood pressure of over 180 systolic. Prov:SPIKE RAMIREZ 12/19/24 Cephalexin Monohydrate (Keflex) 500 Mg Cap, 1 CAP PO BID for 10 Days, #20 CAP 0 Refills Prov:NICOLE NANCE MD 12/15/24 Bisacodyl (Dulcolax) 5 Mg Tablet.dr, 10 MG PO BID for 10 Days, #30 TAB Prov:KAROLINE LEONE 02/04/23 Phenazopyridine HCl (Pyridium) 200 Mg Tab, 200 MG PO TIDPC, #9 TAB TAKE WITH FOOD TO PREVENT STOMACH UPSET. Prov:GLORY TRACY 06/21/22 Cephalexin Monohydrate (Keflex) 500 Mg Cap, 500 MG PO TID for 7 Days, #21 CAP Prov:GLORY TRACY 06/21/22 Phenazopyridine HCl (Pyridium) 200 Mg Tab, 200 MG PO TIDPC, #9 TAB TAKE WITH FOOD TO PREVENT STOMACH UPSET. Prov:GLORY TRACY 04/22/22 Cephalexin Monohydrate (Keflex) 500 Mg Cap, 500 MG PO TID for 7 Days, #21 CAP Prov:GLORY TRACY 04/22/22 Past Medical History Past Medical History: CAD, Hypertension Additional Past Medical Hx: PERIPHERIAL ARTERY DISEASE; STRESS TEST (06/20/22) Surgical History: Other Surgical History Other: CARDIAC STENT Family History: Negative Social History: Negative, Lives with family History: Not Applicable RN Note Reviewed/Agreed w/PFSH: Yes Review of System Dictation CONSTITUTIONAL: NEGATIVE EXCEPT FOR HPI HEAD/FACE: NEGATIVE EXCEPT FOR HPI EENT: NEGATIVE EXCEPT FOR HPI RESPIRATORY: NEGATIVE EXCEPT FOR HPI EDEMA BILATERAL LOWER EXTREMITIES GASTROINTESTINAL/ABDOMINAL: NEGATIVE EXCEPT FOR HPI GENITOURINARY: NEGATIVE EXCEPT FOR HPI MUSCULOSKELETAL: NEGATIVE EXCEPT FOR HPI INTEGUMENTARY: NEGATIVE EXCEPT FOR HPI NEUROLOGICAL/PSYCH: NEGATIVE EXCEPT FOR HPI HEMATOLOGIC/LYMPHATIC: NEGATIVE EXCEPT FOR HPI ALL SYSTEMS NEGATIVE, EXCEPT NOTED ABOVE. 13 POINT REVIEW OF SYSTEMS ASSESSED AND ALL NEGATIVE EXCEPT FOR ABOVE. Initial Vital Sign VS Vital Signs Date Time Temp Pulse Resp B/P (MAP) Pulse Ox O2 Delivery O2 Flow Rate FiO2 06/15/25 21:25 97.7 66 20 213/83 100 Room Air 06/15/25 21:57 0 21 Physical Exam Dictation VITAL SIGNS REVIEWED GENERAL APPEARANCE: ALERT, ORIENTED X 3, NO ACUTE DISTRESS, WELL DEVELOPED, NOURISHED. 0/10 PAIN HEAD AND FACE: NON-TRAUMATIC. EYES: PERRL, PINK CONJUNCTIVAS, EYELID NO TRAUMA, ANTERIOR CHAMBER WITH ARCUS SENILIS. EARS: PINNAS INTACT AND NO SIGNS OF TRAUMA OR ERYTHEMA EAR CANALS CLEAR AND NO DISCHARGE TM NO ERYTHEMA NOSE: NO DISCHARGE, NO BLEEDING. OROPHARYNX: MOUTH NORMAL, TONGUE PINK, PHARYNX CLEAR,NO ERYTHEMA, TONSILS NO EXUDATES, NO ABSCESSES NOTED, MUCOUS MEMBRANE MOIST NECK: SUPPLE, NON-TENDER, NO THYROMEGALY, NO MASSES, NO JVD, NO BRUITS BREAST:DEFERRED CHEST:NO TENDERNESS, NO CREPITUS, NO PARADOXICAL MOVEMENT, NO RETRACTIONS LUNGS:CLEAR, WELL-VENTILATED, SYMMETRIC, NO RALES, NO WHEEZING, NO RHONCHI, NO STRIDOR, GOOD BREATH SOUNDS BILATERALLY HEART: REGULAR RATE, REGULAR RHYTHM, NO MURMUR, NO GALLOPS VASCULAR: N 2+ PERIPHERAL EDEMA BILATERAL LOWER EXTREMITIES TO KNEES, ABDOMEN: SOFT, POSITIVE BOWEL SOUNDS, NONDISTENDED, NO GUARDING, NONTENDER, NO REBOUND, NO MASSES NO HEPATOMEGALY, NO SPLENOMEGALY, NO CHING'S SIGN, NO HERNIAS. RECTAL: DEFERRED GENITAL: DEFERRED NEUROLOGICAL: NORMAL SPEECH, MOTOR FUNCTION INTACT, SENSORY FUNCTION INTACT MUSCULOSKELETAL: NECK NONTENDER, FULL RANGE OF MOTION, BACK NONTENDER, FULL RANGE OF MOTION, EXTREMITIES: NONTENDER, FULL RANGE OF MOTION SKIN: COLOR PINK, DRY, NO TURGOR, NO RASH, NO LACERATIONS, NO ABRASIONS, NO C ONTUSIONS. LYMPHATIC: DEFERRED Results (Laboratory/Radiology) Laboratory/Radiology Laboratory Tests Test 06/15/25 22:10 White Blood Count 4.3 K/uL (4.8-10.8) L Red Blood Count 4.10 MIL/uL (4.00-5.50) Hemoglobin 12.0 g/dL (12.0-16.0) Hematocrit 36.1 % (36-48) Mean Corpuscular Volume 88.0 fL (79-99) Mean Corpuscular Hemoglobin 29.3 pg (27.0-33.0) Mean Corpuscular Hemoglobin Concent 33.2 g/dL (32.0-36.0) Red Cell Distribution Width 12.3 % (11.0-15.5) Platelet Count 189 K/uL (130-400) Mean Platelet Volume 10.2 fL (7.5-10.5) Immature Granulocyte % (Auto) 0.2 % (0-1) Neutrophils (%) (Auto) 51.4 % (40.0-77.0) Lymphocytes (%) (Auto) 30.6 % (21.0-51.0) Monocytes (%) (Auto) 12.7 % (3.0-13.0) Eosinophils (%) (Auto) 4.2 % (0.0-8.0) Basophils (%) (Auto) 0.9 % (0.0-5.0) Neutrophils # (Auto) 2.2 K/uL (1.8-7.7) Lymphocytes # (Auto) 1.3 K/uL (1.0-4.8) Monocytes # (Auto) 0.5 K/uL (0.1-1.0) Eosinophils # (Auto) 0.18 K/uL (0.00-0.70) Basophils # (Auto) 0.04 K/uL (0.00-0.20) Absolute Immature Granulocyte (auto 0.01 K/uL (0-1) Nucleated Red Blood Cells 0.0 % (0.0-0.19) Sodium Level 128 mmol/L (136-145) L Potassium Level 4.6 mmol/L (3.5-5.1) Chloride Level 94 mmol/L (101-111) L Carbon Dioxide Level 31 mmol/L (21-32) Blood Urea Nitrogen 13 mg/dL (7-18) Creatinine 0.7 mg/dL (0.5-1.0) Glomerular Filtration Rate Calc 88 mL/min (>90) Random Glucose 86 mg/dL (70-105) Total Calcium 9.0 mg/dL (8.5-10.1) Troponin I High Sensitivity 7 ng/L (4-50) B-Type Natriuretic Peptide 172 pg/mL (0-100) H Labs Reviewed?: Yes EKG Comment: Twelve lead EKG done on 06/15/2025 at 9:53 p.m. showed a heart rate of 63, IA interval 154, QRS 102, QT/QTC 435/447. Impression-normal sinus rhythm with nonspecific ST-T changes noted. Left atrial enlargement no acute ST-T changes. EKG rhythm strip-normal sinus rhythm Interpreted by ER MD Dr. Vidal ED Course ED Course Orders Procedure Category Date Status Time B-Type Natriuretic LAB 06/15/25 Complete Peptide 21:29 Cbc With Differential LAB 06/15/25 Complete 21:29 Troponin I High LAB 06/15/25 Complete Sensitivity 21:29 12 Lead Ekg Tracing- EKG 06/15/25 Complete Technical 21:29 Basic Metabolic Panel LAB 06/15/25 Complete 21:29 Hydralazine 20mg Inj PHA 06/15/25 Complete (Apresoline 20mg In 21:30 Hydralazine 20mg Inj PHA 06/15/25 Complete (Apresoline 20mg In 22:00 Ketorolac PHA 06/15/25 Complete Tromethamine 30mg/Ml 22:00 Diphenhydramine Hcl PHA 06/15/25 Complete (Benadryl Inj) 22:00 0.9% Nacl 500ml PHA 06/15/25 Complete Iv.Soln (Ns 500ml 23:30 Current Medications Medications (Trade) Dose Ordered Sig/Amy Route PRN Reason Start Time Stop Time Status Last Admin Dose Admin Diphenhydramine HCl (BENAdryl INJ) 25 mg ONCE ONCE IV 06/15/25 22:00 06/15/25 22:04 DC Hydralazine HCl (APRESOLine 20MG INJ) 10 mg ONCE ONCE IV 06/15/25 22:00 06/15/25 22:01 DC 06/15/25 22:10 Hydralazine HCl (APRESOLine 20MG INJ) 20 mg ONCE ONCE IV 06/15/25 21:30 06/15/25 21:45 DC Ketorolac Tromethamine (toRADol) 30 mg ONCE ONCE IVP 06/15/25 22:00 06/15/25 22:04 DC Sodium Chloride 500 ml @ 0 mls/hr ONCE ONCE IV 06/15/25 23:30 06/15/25 23:31 DC 06/15/25 23:17 Vital Signs Date Time Temp Pulse Resp B/P (MAP) Pulse Ox O2 Delivery O2 Flow Rate FiO2 06/15/25 23:15 98.8 74 19 137/50 100 Room Air* 0 21 06/15/25 22:21 98.8 78 20 155/52 98 Room Air* 0 21 06/15/25 21:57 98.8 62 20 217/92 98 Room Air* 0 21 06/15/25 21:25 97.7 66 20 213/83 100 Room Air 10:00 p.m. patient was signed out to me by David mid-level provider to follow up on the labs. CBC is with a normal limits BNP 7 shows a sodium of 128 chloride 94 potassium 4.6 bicarb 31. I updated the patient and her on lab results and planned small amount of fluid bolus. Review of her dietary habits patient is a vegan and does not use any salt in cooking. 12:00 a.m. patient feels improved and verbalized understanding of the electrolyte imbalance. We will discharge her to follow up with her primary care physician Medical Decision Making MDM Differential diagnosis: Hypertensive urgency, hypertensive emergency, uncontrolled hypertension, malignant hypertension Rationale: Tests considered and ordered secondary to shared decision making include: Previous outside records reviewed: Old ER visits. Risk of complication and/or morbidity or mortality of patient management: None Medications-Per medication reconciliation Need for hospitalization: Patient does not meet criteria for hospitalization. Need for emergency major/minor surgery: No There are no social concerns with this patient. Prescription drug management Prescriptions will include symptomatic care Patient's prior external medical records from other ER visits were reviewed by me as indicated. Prior testing and results from previous visits were reviewed. Prior tests were taken into account with medical decision making and resource utilization, independent historian/historians were used to obtain complete medical history. I independently interpreted the test that were performed, results were reviewed by me and considered findings on radiology if ordered. Medical management and examination interpretation discussions were had by me with other qualified healthcare professionals as indicated for the patient's care. Problem List Problem List: (1) Hypertensive urgency (2) Hyponatremia (3) Hypochloremia DX & DISP Disposition: Discharge Departure Impression: Primary Impression: Hypertensive urgency Additional Impressions: Hyponatremia, Hypochloremia Condition: Stable Additional Instructions: Patient and the caregiver have been informed of all the diagnostic tests and the imaging conducted during the today's visit to the emergency room and has verbalized understanding of the results I have personally reviewed and interpreted all diagnostic exams performed here in the ER today as well as the vital signs documented by the nursing staff. The patient is now being discharged to home and should follow up with the primary care physician or the specialist as directed by the ER staff. Follow-up with primary care provider in 1 to 2 days. Take medications as directed here in the emergency room. Okay to continue home medications unless otherwise discussed during your visit in the emergency room today. Return to your nearest emergency room if symptoms worsen or if there is no improvement. Call 911 if you need immediate assistance. Take Tylenol or Motrin [id number] as needed and if no contraindications are present. Increase oral hydration. A wound culture or urine culture was ordered here in the emergency room department please follow-up with primary care provider and advise them to get repeat ports from our facility. If you had any Pravin wrap/splints that were applied here, please do not remove them until you see your primary care or specialty. Referrals: ARSENIO SPEARS MD (PCP) DAVID MATA NP Jun 15, 2025 21:33 LEXI VIDAL MD Jun 15, 2025 23:25
--- NOTE | 2025-06-15 21:57 | EKG ---
[facility] Test Date: 2025-06-15 Test Time: 21:53:12 Pat Name: KARENA ROBB Department: [facility] [address] Room: Gender: F Split Leather Department Supervisor: [id number] : 1945 Requested By: MIKE MATA Order Number: [id number] Reading MD: Char Mascorro Measurements Intervals [place] Rate: 63 P: 72 MO: 154 QRS: 20 QRSD: 102 T: 40 QT: 435 QTc: 447 Interpretive Statements Sinus rhythm Probable left atrial enlargement Compared to ECG 12/18/2024 21:49:10 No significant changes Electronically Signed On 06-16-2025 14:06:54 CDT by Char Mascorro Please click the below link to view image of tracing.
[2025-06-15 22:20] LABS: IMMATURE GRANULOCYTE ABSOLUTE 0.01 K/uL (0-1); NUCLEATED RED BLOOD CELLS 0.0 % (0.0-0.19); PLATELET COUNT (AUTO) 189 K/uL (130-400); RED BLOOD CELL COUNT(AUTO) 4.10 MIL/uL (4.00-5.50); RED CELL DISTRIBUTION WIDTH 12.3 % (11.0-15.5); WHITE BLOOD COUNT (AUTO) 4.3 K/uL (4.8-10.8)
[2025-06-15 22:30] LABS: CREATININE 0.7 mg/dL (0.5-1.0); GLOMERULAR FILTR. RATE CALC 88.0 mL/min (>90); GLUCOSE,RANDOM 86.0 mg/dL (70-105); SODIUM SERUM 128.0 mmol/L (136-145); UREA NITROGEN, BLOOD 13.0 mg/dL (7-18)
[2025-06-15 23:15] VITALS: BP 137/50; PULSE 74; RESP 19; TEMP 98.8; O2SAT 100
[2025-06-15] MEDS: 0.9% NACL 500ML IV.SOLN 500 ML IV ONE (23:17)
== END 2025-06-16 00:03 | disposition home or self-care (01) ==
LOC: EDH 21:23
DX: I16.0 Hypertensive urgency (principal); E87.1 Hypo-osmolality and hyponatremia; I10 Essential (primary) hypertension; E87.8 Other disorders of electrolyte and fluid balance, not elsewhere classified; I25.10 Atherosclerotic heart disease of native coronary artery without angina pectoris; Z79.899 Other long term (current) drug therapy; Z95.5 Presence of coronary angioplasty implant and graft
CPT/HCPCS: 99283; 96374; 84484; 80048; 83880; 85025; 36415; 93005; J1200; J0360; J1885

== ENCOUNTER → 2025-08-19 | Outpatient (CLI) | payer OTHER ==
[~2025-08-19] MED LIST changes: -BISA-72 PO; +CARV6.25 PO; -CEPH500B PO; -CLON0.1T PO; +FAMO40TA7 PO; +IOHEXOL 350 MG/ML 100ML INFUS..BTL IV ONE; +ISOS60TA77 PO; -PHEN-847 PO; +ROSU10TA98 PO
--- NOTE | 2025-08-19 15:44 | CARDIOLOGY ---
RAD REPORT: CORNARY CT ANGIO RADIOLOGY REPORT: CORONARY CT ANGIOGRAPHY DATE: Aug 19, 2025 QUALITY: Excellent CLINICAL HISTORY AND INDICATION: [CAD ] TECHNIQUE: After obtaining a preliminary director of restaurant operations image, contrast imaging performed on an [employer] [id number] scanner. A dedicated, limited window, coronary imaging protocol was used, with single breath-hold, retrospective ECG gating, and automated arrhythmia rejection. 100 cc of low osmolar contrast agent: Omnipaque 350 was delivered via a 18-gauge IV catheter in the right antecubital fossa, using a power injector and followed by 60 cc of normal saline bolus as a chaser. Collimated images were reformatted at 0.5 mm intervals, and sent to an offline independent workstation for interpretation, using 3D anatomic reconstructions: Curved multiplanar reconstructions, maximum intensity projections, and multiplanar imaging. No metoprolol was administered prior to scanning due to low baseline heart rate. 0.8 mg SL nitroglycerin was given. CORONARY ARTERY DESCRIPTIONS: The coronary arteries arise in normal position. Left main coronary artery: Normal caliber vessel that bifurcates into the LAD and LCx. No stenosis. Left anterior descending coronary artery: Normal caliber vessel and gives rise to diagonal and septal branches. There is calcified plaque in the proximal and mid LAD with 40-50% stenosis. Left circumflex coronary artery: Normal caliber, nondominant and gives rise to a large OM branch. No stenosis. Right coronary artery: Large, dominant vessel giving rise to the PL and PDA branches. No stenosis. CAD-RADs: 2-3, mild to moderate non-obstructive CAD. Thoracic Aorta: Normal diameter. Suzan Miner MD Cardiovascular Disease [facility] SUZAN MINER MD Aug 19, 2025 15:44
== END | disposition home or self-care (01) ==
LOC: RAH 10:05
PROVIDERS: ATTEND Student in an Organized Health Care Education/Training Program
DX: I25.10 Atherosclerotic heart disease of native coronary artery without angina pectoris (principal); R07.9 Chest pain, unspecified
CPT/HCPCS: 75574; Q9967

== ENCOUNTER 2025-08-25 16:42 | Inpatient (IN) | payer OTHER ==
[~2025-08-25] VITALS: Ht 157.5 cm; Wt 51.4 kg
[~2025-08-25 16:42] MED LIST changes: -IOHEXOL 350 MG/ML 100ML INFUS..BTL IV ONE
[2025-08-25 17:45] LABS: CREATININE 0.8 mg/dL (0.5-1.0); GLOMERULAR FILTR. RATE CALC 75.0 mL/min (>90); GLUCOSE,RANDOM 90.0 mg/dL (70-105); SODIUM SERUM 129.0 mmol/L (136-145); UREA NITROGEN, BLOOD 13.0 mg/dL (7-18)
[2025-08-25 17:50] LABS: ASPARTATE AMINOTRANSFERASE 28.0 U/L (10-37); TOTAL PROTEIN, SERUM 7.5 g/dL (6.0-8.3)
[2025-08-25 17:51] LABS: IMMATURE GRANULOCYTE ABSOLUTE 0.01 K/uL (0-1); NUCLEATED RED BLOOD CELLS 0.0 % (0.0-0.19); PLATELET COUNT (AUTO) 183 K/uL (130-400); RED BLOOD CELL COUNT(AUTO) 4.10 MIL/uL (4.00-5.50); RED CELL DISTRIBUTION WIDTH 13.5 % (11.0-15.5); WHITE BLOOD COUNT (AUTO) 5.1 K/uL (4.8-10.8)
[2025-08-25 17:57] LABS: INR 0.99 (0.85-1.15)
[2025-08-25] MEDS ORDERED: NITROGLYCERIN 0.4 MG SL TAB SL PRN (18:00)
[2025-08-25] MEDS ORDERED: ASPI-1197 PO (18:13)
[2025-08-25] MEDS ORDERED: PANT40TA54 PO (18:13)
[2025-08-25] MEDS ORDERED: CLOP75TA32 PO (18:16)
--- NOTE | 2025-08-25 18:22 | NUR ---
PT TAKEN TO RAD DEPT FOR HEAD CT.
--- NOTE | 2025-08-25 18:44 | HP ---
[facility] HISTORY AND PHYSICAL Date of Service: Aug 25, 2025 Time of Service: 18:26 HISTORY OF PRESENT ILLNESS: Date of service: 08/25/2025, patient was seen in ER 19, PCP: Dr. Singh, Primary Showcase Maker: Dr. Miner 80-year-old female with previous medical history of hypertension, hyperlipidemia, carotid artery disease, peripheral arterial disease, renal artery stenosis, superior mesenteric artery stenosis, history of nonobstructive coronary artery disease who presented as a direct admission from [facility]. Patient states that she was following up in Dr. Soy cordova today when she was noted to have systolic blood pressure running between 190s-220s. Patient states that her blood pressure has been running uncontrolled over the last week. She has been keeping a log of blood pressure and reports that blood pressure has been uncontrolled. She was previously hospitalized in [facility] in 06/2025 when she was admitted with hypertensive urgency with associated chest pain and she needed to be placed on nicardipine drip during the hospital stay. Patient states that she has been compliant with her home antihypertensives with carvedilol 6.25 mg twice daily and isosorbide mononitrate 60 mg daily. Patient reports that previously, she has been maintained on hydralazine which was stopped due to patient having severe adverse reaction including palpitation, lower extremity edema, malaise. She has also previously not tolerated amlodipine due to issues with lower extremity edema. She has been on losartan per documentation which has caused previously hyperkalemia. Patient denies any weakness of upper or lower extremity . patient reports that she gets some mild vision changes when her blood pressure runs high. She denies any active headache. She does not put any salt in her food to control her blood pressure and she states that she drinks about 100 oz of fluid daily. She has a previous workup recently including renal artery Doppler. Renal artery Doppler on 06/27/2025 showed close to 60% stenosis involving the left renal shiva ry. Per clinic documentation, she had a outside hospital CT scan done which showed 95% stenosis involving the left main renal artery and 30% stenosis of the right renal artery and she is supposed to follow up with Dr. Mojica as outpatient. Patient also had a lower extremity arterial duplex on 08/17/2025, which showed a severe worsening stenosis of the left proximal superficial fem oral artery and infrapopliteal which was noted to be worsening from previous studies. Patient has a previous history of right femoral artery stent placement in 2010 in [facility] and a left femoral artery surgical patch repair and right brachial artery patch repair in [facility] previously as well. Patient reports that she has been maintained on aspirin and Plavix daily. Denies any previous history of stroke. Has previous history of bilateral carotid artery stenosis of the ICAs of 50-69%. Recent coronary CT angiography on August 19, 2025 which showed [id number] nonobstructive coronary artery disease. On presentation to [facility] ER, blood pressure has been running between 190s-230 systolic. Patient will be initiated on nicardipine drip and will be admitted to ICU. Home antihypertensives will be up titrated in the next 24-48 hours based on blood pressure trend. Consultation with Cardiology and critical Care Services will be requested. Patient will also have follow up with regards to further management of the renal artery stenosis and peripheral arterial disease. REVIEW OF SYSTEMS CONSTITUTIONAL: Denies fevers, chills, or night sweats. No unintentional weight loss reported. NEUROLOGICAL: Denies headache, amaurosis fugax, motor weakness, sensory deficit, vertigo/spinning sensation, gait abnormalities, or tremors. ENT: No hearing loss, otalgia, otorrhea, rhinitis, rhinorrhea, hoarseness, or sore throat. CARDIOVASCULAR: Denies any exertional angina, dyspnea on exertion, orthopnea, paroxysmal nocturnal dyspnea, palpitations, life-threatening arrhythmias, claudication. Reports Having poorly controlled blood pressure over the last several days. PULMONARY: Denies any shortness of breath, cough, phlegm/sputum, hemoptysis, pleuritic chest pain. SLEEP: Denies morning headaches, daytime somnolence or napping. Denies difficulty falling asleep, staying asleep, waking from sleep. Denies knowledge of snoring. GASTROINTESTINAL: Denies any type of dysphagia to either liquids or solids. Denies nausea, vomiting, pyrosis, early satiety, abdominal pain, diarrhea, constipation, or changes in stool consistency or caliber. Denies coffee-ground emesis, hematemesis, hematochezia, or melanotic stools. GENITOURINARY: Denies frequency, urgency, nocturia, hematuria or incontinence (Storage/Irritative symptoms.) Low urinary stream, straining to void, urinary intermittency or hesitancy, splitting of the voiding stream, terminal dribbling. ENDOCRINOLOGIC: Denies polyuria, polydipsia, polyphagia or heat/cold intolerances. HEMATOLOGIC: Denies thrombophilia/previous clots, or coagulopathy/bleeding disorders. ONCOLOGIC: Denies personal history of malignancy. DERMATOLOGIC: Denies rashes or pruritus. PSYCHIATRIC: Denies any suicidal or homicidal ideation. Denies hallucinations. PAST MEDICAL HISTORY: Hypertension, hyperlipidemia, history of nonobstructive coronary artery disease, 50-69% stenosis of bilateral carotid artery on carotid artery Doppler, history of peripheral arterial disease, history of renal artery stenosis, GERD, osteoporosis, history of lower back pain with lumbar stenosis, history of pulmonary nodule with pulmonary fibrosis per notes from Dr. Singh PAST SURGICAL HISTORY: Tubal ligation, carpal tunnel release, right rotator cuff surgery, history of stent to right SFA in 2010 in [facility], [facility] pericardial femoral patch repair of left femoral artery and [facility], right brachial artery patch repair in [facility] previously PAST SOCIAL HISTORY: Patient denies active smoking or alcohol consumption, independent with ADLs and IADLs FAMILY HISTORY: Reports family history of heart disease and hypertension in father and mother Home medications: Aspirin 81 mg daily, Plavix 75 mg daily, carvedilol 6.25 mg twice daily, isosorbide mononitrate sustained release 60 mg daily, Protonix 40 mg daily, famotidine 40 mg daily Coded Allergies: No Known Allergies (Unverified Allergy, Unknown, 04/22/22) sulfamethoxazole (Unverified Allergy, Unknown, 06/26/25) trimethoprim (Unverified Allergy, Unknown, 06/26/25) hydralazine (Verified Adverse Reaction, Severe, palpitation, leg edema, weakness, 08/25/25) PHYSICAL EXAM GENERAL APPEARANCE: The patient is awake, alert, and oriented, in no acute cardiopulmonary distress. NEUROLOGICAL: Cranial nerves II-XII grossly intact. Motor is 5/5 in bilateral upper and lower extremities proximal to distal. No sensory deficits. HEENT: Face is symmetric. Pupils are equal and reactive. Extraocular movements are intact. NECK: Supple. No JVD. No thyromegaly. No submental, submandibular, pre-/postauricular, occipital or supraclavicular lymphadenopathy. CHEST: Normal chest expansion. No Telemetry. LUNGS: Absence of any rales, rhonchi or any wheezing. CARDIOVASCULAR: Regular. S1 and S2 normal. No appreciable rubs, murmurs or gallops. ABDOMEN: Soft, nontender, and nondistended. There is no rebound, voluntary guarding, or rigidity. : Deferred. No [place]. EXTREMITIES: Non-edematous and not cyanotic. No clubbing. Good capillary refill. SKIN: No skin breakdown. Vital Sign (Last 24 Hours) 08/25/25 18:17 Temp 97.5 Pulse 71 Resp 15 B/P (MAP) 170/64 Pulse Ox 98 O2 Delivery Room Air* O2 Flow Rate 0 FiO2 21 LABS: Laboratory: Test 08/25/25 17:23 Range/Units White Blood Count 5.1 4.8-10.8 K/uL Red Blood Count 4.10 4.00-5.50 MIL/uL Hemoglobin 11.8 L 12.0-16.0 g/dL Hematocrit 35.8 L 36-48 % Mean Corpuscular Volume 87.3 79-99 fL Mean Corpuscular Hemoglobin 28.8 27.0-33.0 pg Mean Corpuscular Hemoglobin Concent 33.0 32.0-36.0 g/dL Red Cell Distribution Width 13.5 11.0-15.5 % Platelet Count 183 130-400 K/uL Mean Platelet Volume 10.2 7.5-10.5 fL Immature Granulocyte % (Auto) 0.2 0-1 % Neutrophils (%) (Auto) 62.4 40.0-77.0 % Lymphocytes (%) (Auto) 23.6 21.0-51.0 % Monocytes (%) (Auto) 10.5 3.0-13.0 % Eosinophils (%) (Auto) 2.5 0.0-8.0 % Basophils (%) (Auto) 0.8 0.0-5.0 % Neutrophils # (Auto) 3.2 1.8-7.7 K/uL Lymphocytes # (Auto) 1.2 1.0-4.8 K/uL Monocytes # (Auto) 0.5 0.1-1.0 K/uL Eosinophils # (Auto) 0.13 0.00-0.70 K/uL Basophils # (Auto) 0.04 0.00-0.20 K/uL Absolute Immature Granulocyte (auto 0.01 0-1 K/uL Nucleated Red Blood Cells 0.0 0.0-0.19 % Prothrombin Time 10.5 9.6-11.6 SEC Prothromb Time International Ratio 0.99 0.85-1.15 Activated Partial Thromboplast Time 26.2 L 26.3-35.5 SEC Sodium Level 129 L 136-145 mmol/L Potassium Level 4.3 3.5-5.1 mmol/L Chloride Level 94 L 101-111 mmol/L Carbon Dioxide Level 27 21-32 mmol/L Blood Urea Nitrogen 13 7-18 mg/dL Creatinine 0.8 0.5-1.0 mg/dL Glomerular Filtration Rate Calc 75 >90 mL/min Random Glucose 90 70-105 mg/dL Total Calcium 8.4 L 8.5-10.1 mg/dL Magnesium Level 2.10 1.80-2.40 mg/dL Total Bilirubin 0.4 0.2-1.0 mg/dL Aspartate Amino Transf (AST/SGOT) 28 10-37 U/L Alanine Aminotransferase (ALT/SGPT) 19 12-78 U/L Alkaline Phosphatase 56 50-136 U/L Total Protein 7.5 6.0-8.3 g/dL Albumin 3.7 3.5-5.0 g/dL Thyroid Stimulating Hormone (TSH) 3.43 0.36-3.74 uIU/mL Current Medications Medications (Trade) Dose Ordered Sig/Amy Route PRN Reason Start Time Stop Time Status Last Admin Dose Admin Acetaminophen (TYLenol 325MG TAB) 650 mg Q6H PRN PO MILD PAIN (1-3) 08/25/25 18:00 09/24/25 17:59 Carvedilol (Coreg 6.25MG) 6.25 mg BID PO 08/25/25 21:00 09/24/25 20:59 Clopidogrel Bisulfate (plaVIX 75MG) 75 mg DAILY PO 08/26/25 09:00 09/25/25 08:59 Enoxaparin Sodium (Lovenox) 30 mg DAILY SQ 08/26/25 09:00 09/25/25 08:59 Famotidine (Pepcid 20mg Tab) 20 mg Q24H PO 08/25/25 21:00 09/24/25 20:59 Ipratropium [place] (AtrovENT UD) 0.5 mg Q6H PRN IH SHORTNESS OF BREATH 08/25/25 18:00 09/24/25 17:59 Isosorbide Mononitrate (Imdur 60mg Sr) 60 mg DAILY PO 08/26/25 09:00 09/25/25 08:59 Nicardipine HCl 25 mg/Sodium Chloride 250 ml @ 0 mls/hr PROTOCOL IV 08/25/25 18:00 09/24/25 17:59 08/25/25 18:04 50 MLS/HR Nitroglycerin (Nitrostat) 0.4 mg AD PRN SL CHEST PAIN 08/25/25 18:00 09/24/25 17:59 Ondansetron HCl (zoFRAN 4MG INJ) 4 mg Q6H PRN IVP NAUSEA/VOMITING 08/25/25 18:00 09/24/25 17:59 DIAGNOSTICS / RADIOLOGY: CT head Without contrast is pending ASSESSMENT: Hypertensive emergency, POA History of uncontrolled hypertension, POA Recent hospitalization in [facility] in 06/2025 with hypertensive urgency, POA History of renal artery stenosis with findings of 95% stenosis of the left main renal artery and 30% stenosis of the right renal artery on CT from 08/17/2025, POA History of bilateral internal carotid artery stenosis, 50-69%, POA History of peripheral arterial disease POA History of superior mesenteric artery stenosis, POA History of nonobstructive coronary artery disease, POA History of GERD, POA Hyponatremia, POA Anemia, mild, POA PLAN: Patient will be admitted to ICU We will start patient on nicardipine drip, systolic blood pressure running between 190s-230's in the ER, we will titrate nicardipine drip to slowly reduce blood pressure close to 160s/100 tonight Resume patient's home dose of carvedilol 6.25 mg twice daily Continue with isosorbide mononitrate 60 mg daily We will obtain a renin aldosterone ratio, we will check a TSH and cortisol level as well, ROSE, RF Patient per notes noted to have 95% stenosis of the left main renal artery on abdominal CT from 08/17/2025, we will have Dr. Mojica follow up for further evaluation Patient also noted to have lower extremity arterial duplex from 08/17/2025 which showed severe worsening stenosis of left proximal superficial femoral artery and infrapopliteal, which was noted to be worsening from her previous studies We will Intensive Care Service follow this patient closely tonight with regards to blood pressure control Home medications will be reconciled and updated once available All labs will be repeated in the morning We will keep patient on fluid restrictions of 1.5 L daily, we will monitor sodium trend closely, we will follow up serum and urine osmolality, urine sodium and urine creatinine as well Continue with GI prophylaxis with Protonix, DVT prophylaxis with low-dose Lovenox We will see how blood pressure trends in the next 24-48 hours, antihypertensives will be appropriately titrated based on blood pressure trend Prognosis: Guarded Date of service: 08/25/2025 Plan of care was discussed with patient and family at bedside, Marko Joe MD Advanced Care Planning: Which of the following were discussed: Hospice care: Yes __ No _X_ Therapeutic options: Yes _X_ No __ Advance directives: Yes _X_ No __ Other discussions: Discussed with who?: Patient Voluntary nature of this service was explained to the patient? Yes _x_ No __ Amount of time spent: 20 minutes MARKO JOE MD Aug 25, 2025 18:44
--- NOTE | 2025-08-25 19:05 | CONS ---
[facility] CONSULTATION NOTE Date Patient Seen: Aug 25, 2025 Time of Visit: 19:03 Supervising Physician: Dr. Leoncio Cervantes Reason for Consultation: Hypertensive urgency Consulting Physician: Hospitalist Outpatient Specialists: [ ] Inpatient Consults: [ ] PROBLEM LIST: Hypertensive urgency, POA Hyperlipidemia, POA Renal alteration stenosis, POA Hyponatremia, POA History of CAD History Internal carotid artery stenosis PLAN: Admit per primary We will achieve SBP reduction of approximately 25% within 24 hours (SBP less than 180) DC Cardene drip Continue Coreg and isosorbide P.r.n. hydralazine and labetalol for SBP above 180 BP monitoring Q one Complete bedrest for now Cardiac monitoring Replete electrolyte Heart healthy diet Bilateral SCDs CBC, CMP, magnesium level daily HPI: 80-year-old female with past medical history of hypertension (Coreg and isosorbide), hyperlipidemia, carotid artery disease, peripheral arterial disease, renal artery stenosis, superior mesenteric artery stenosis who presented as a direct admission from Dr. [facility]ier [facility] here for evaluation of elevated blood pressure. Patient was seen and examined in ED with present at bedside. Earlier today patient presented to Dr. Olivier office for routine checkup and to obtain results of her imaging done previously, but when they checked her blood pressure she was found to have elevated SBP above 225 mmHg. There is no associated chest pain, fever, confusion, however patient complains of blurry vision with occasional headache. Patient was then advised to come to ED for further evaluation. Upon arrival in ED patient was initiated by primary on Cardene drip and consulted ICU for management. At present patient is currently hemodynamically stable, on room air with appropriate oxygen saturation, normal sinus rhythm on the monitor, with SBP at 156 mmHg on Cardene drip. Patient denies any headache, chest pain, fever, cough, diarrhea, or dysuria. Patient is an ex-smoker, denies any alcohol use or illicit drug use. PAST MEDICAL HX: see above PAST SURGICAL HX: noncontributory SOCIAL HISTORY: See HPI Coded Allergies: No Known Allergies (Unverified Allergy, Unknown, 04/22/22) sulfamethoxazole (Unverified Allergy, Unknown, 06/26/25) trimethoprim (Unverified Allergy, Unknown, 06/26/25) hydralazine (Verified Adverse Reaction, Severe, palpitation, leg edema, weakness, 08/25/25) REVIEW OF SYSTEMS: 12 point ROS reviewed with patient. Pertinent positives mentioned above. Otherwise negative. PHYSICAL EXAM: GENERAL: alert, weak, awake oriented x 3 HEENT: EOMI, Sclera non icteric, moist mucosa NECK: Supple, no JVD, trachea midline LUNGS: Clear breath sounds bilaterally. No wheezes HEART: Regular rate and rhythm. Normal S1 and S2, without murmurs ABD: Abdomen soft, nontender. Bowel sounds present EXT: No clubbing cyanosis or edema NEURO: Alert and oriented to person, follows commands Vital Signs (last 8hr) Date Time Temp Pulse Resp B/P (MAP) Pulse Ox O2 Delivery O2 Flow Rate FiO2 08/25/25 18:56 98.2 70 11 153/65 98 Room Air* 0 08/25/25 18:51 98.2 73 12 143/63 98 Room Air* 0 08/25/25 18:46 98.2 82 15 153/62 98 Room Air* 0 08/25/25 18:39 98.2 78 18 162/79 98 Room Air* 0 08/25/25 18:28 97.5 70 19 168/73 98 Room Air* 0 08/25/25 18:17 97.5 71 15 170/64 98 Room Air* 0 08/25/25 18:06 97.5 74 15 192/75 98 Room Air* 0 08/25/25 18:04 66 201/80 08/25/25 17:37 60 11 217/81 98 Room Air* 0 08/25/25 16:44 97.5 70 18 166/73 98 Room Air 0 LABS: Hematology Labs: Test 08/25/25 17:23 Range/Units White Blood Count 5.1 4.8-10.8 K/uL Red Blood Count 4.10 4.00-5.50 MIL/uL Hemoglobin 11.8 L 12.0-16.0 g/dL Hematocrit 35.8 L 36-48 % Mean Corpuscular Volume 87.3 79-99 fL Mean Corpuscular Hemoglobin 28.8 27.0-33.0 pg Mean Corpuscular Hemoglobin Concent 33.0 32.0-36.0 g/dL Red Cell Distribution Width 13.5 11.0-15.5 % Platelet Count 183 130-400 K/uL Mean Platelet Volume 10.2 7.5-10.5 fL Immature Granulocyte % (Auto) 0.2 0-1 % Neutrophils (%) (Auto) 62.4 40.0-77.0 % Lymphocytes (%) (Auto) 23.6 21.0-51.0 % Monocytes (%) (Auto) 10.5 3.0-13.0 % Eosinophils (%) (Auto) 2.5 0.0-8.0 % Basophils (%) (Auto) 0.8 0.0-5.0 % Neutrophils # (Auto) 3.2 1.8-7.7 K/uL Lymphocytes # (Auto) 1.2 1.0-4.8 K/uL Monocytes # (Auto) 0.5 0.1-1.0 K/uL Eosinophils # (Auto) 0.13 0.00-0.70 K/uL Basophils # (Auto) 0.04 0.00-0.20 K/uL Absolute Immature Granulocyte (auto 0.01 0-1 K/uL Nucleated Red Blood Cells 0.0 0.0-0.19 % Chemistry Labs: Test 08/25/25 17:23 Range/Units Sodium Level 129 L 136-145 mmol/L Potassium Level 4.3 3.5-5.1 mmol/L Chloride Level 94 L 101-111 mmol/L Carbon Dioxide Level 27 21-32 mmol/L Blood Urea Nitrogen 13 7-18 mg/dL Creatinine 0.8 0.5-1.0 mg/dL Glomerular Filtration Rate Calc 75 >90 mL/min Random Glucose 90 70-105 mg/dL Total Calcium 8.4 L 8.5-10.1 mg/dL Magnesium Level 2.10 1.80-2.40 mg/dL Total Bilirubin 0.4 0.2-1.0 mg/dL Aspartate Amino Transf (AST/SGOT) 28 10-37 U/L Alanine Aminotransferase (ALT/SGPT) 19 12-78 U/L Alkaline Phosphatase 56 50-136 U/L Total Protein 7.5 6.0-8.3 g/dL Albumin 3.7 3.5-5.0 g/dL Thyroid Stimulating Hormone (TSH) 3.43 0.36-3.74 uIU/mL Coagulation Labs: Test 08/25/25 17:23 Range/Units Prothrombin Time 10.5 9.6-11.6 SEC Prothromb Time International Ratio 0.99 0.85-1.15 Activated Partial Thromboplast Time 26.2 L 26.3-35.5 SEC DIAGNOSTICS / RADIOLOGY RESULTS: EXAM: CT Head Without IV contrast. CLINICAL HISTORY: HTN emergency, visual changes TECHNIQUE: Axial computed tomography images of the head/brain without intravenous contrast. COMPARISON: None provided. FINDINGS: BRAIN: No evidence of acute hemorrhage. No mass lesion. No CT evidence for acute territorial infarct. No midline shift or extra-axial collections. Mild diffuse cerebral atrophy in the form of prominent cortical sulci. Diffuse hypodensities in bilateral periventricular white matter, suggestive of chronic small vessel ischemic changes. VENTRICLES: No hydrocephalus. ORBITS: The orbits are unremarkable. SINUSES AND MASTOIDS: The paranasal sinuses and mastoid air cells are clear. BONES: No fracture. SOFT TISSUES: Unremarkable. IMPRESSION: No acute intracranial abnormality. Mild diffuse cerebral volume loss with chronic small vessel ischemic changes. Recommend recommend MRI brain for further evaluation if clinically warranted. PLAN NEURO: Minimize central acting medications as possible. Fall Precautions. Well lighted room through the day and minimize interruptions through the night to prevent acute delirium. PULMONARY: Supplemental 02 as needed Titrate Fio2 to keep Spo2 > or = 90% DuoNebs and CPT as needed IS hourly while awake for pulmonary hygiene Out of bed to chair as tolerated CARDIOVASCULAR: Follow hemodynamics. Titrate vasopressor to keep MAP >65 or systolic blood pressure >95mmHg DIPS: LINES: GI & NUTRITION: Continue nutritional support Aspirations precautions Prokinetic agents and laxatives as needed KIDNEYS & ELECTROLYTES: Strict monitoring of intake and output Daily weights Avoid nephrotoxic agents Monitor electrolytes and replace as needed Goal urine output of 30mL/hr or 0.5mL/kg/hr Urine output: [ ] Fluid Balance: [ ] ENDOCRINE: Maintain blood glucose between 100-180 at all times. Insulin sliding scale for blood glucose management INFECTIOUS DISEASE: Trend temperature. Rose-culture if febrile. Micro: [ ] Antibiotics: [ ] HEMATOLOGY & COAGULATION: Monitor H&H. Keep Hgb > 7 Transfuse 1 unit of PRBC for Hgb < 7 Transfuse 1 pack of platelets of platelets < 20, 000 Watch for any signs and symptoms of bleeding SKIN: Pressure ulcer prevention per facility protocol Rehab: PT/OT Prophylaxis: GI: [ ] DVT: [ ] Code Status: Full Resuscitation Disposition: Can be downgraded to PCCU Other: Total patient care time exceeds 35 minutes excluding all procedures. Supervising physician: BRENDA Faulkner AGACNP Aug 25, 2025 19:05
--- NOTE | 2025-08-25 19:17 | NUR ---
NONOG INDUSTRIAL RECRUITER WITH CRITICAL CARE AT BEDSIDE AT THIS TIME , PER INDUSTRIAL RECRUITER CARDENE DRIP TO BE STOPPED AT THIS TIME UNLESS SYSTOLIC IS >180
--- NOTE | 2025-08-25 19:31 | HMCIMG ---
EXAM: CT Head Without IV contrast. CLINICAL HISTORY: HTN emergency, visual changes TECHNIQUE: Axial computed tomography images of the head/brain without intravenous contrast. COMPARISON: None provided. FINDINGS: BRAIN: No evidence of acute hemorrhage. No mass lesion. No CT evidence for acute territorial infarct. No midline shift or extra-axial collections. Mild diffuse cerebral atrophy in the form of prominent cortical sulci. Diffuse hypodensities in bilateral periventricular white matter, suggestive of chronic small vessel ischemic changes. VENTRICLES: No hydrocephalus. ORBITS: The orbits are unremarkable. SINUSES AND MASTOIDS: The paranasal sinuses and mastoid air cells are clear. BONES: No fracture. SOFT TISSUES: Unremarkable. IMPRESSION: No acute intracranial abnormality. Mild diffuse cerebral volume loss with chronic small vessel ischemic changes. Recommend recommend MRI brain for further evaluation if clinically warranted. /[facility]
[2025-08-25] MEDS ORDERED: NON-FORMULARY MEDICATION 1 EACH (Famotidine 1 TAB) PO SCH (21:00)
[2025-08-25] MEDS: FAMOTIDINE 20MG TAB PO SCH (21:15)
[2025-08-25 21:17] LABS: CREATININE,URINE RANDOM 0.42 mg/dL (30-135)
[2025-08-25 21:44] LABS: CREATININE 0.8 mg/dL (0.5-1.0); GLOMERULAR FILTR. RATE CALC 75.0 mL/min (>90); GLUCOSE,RANDOM 116.0 mg/dL (70-105); SODIUM SERUM 134.0 mmol/L (136-145); UREA NITROGEN, BLOOD 12.0 mg/dL (7-18)
[2025-08-26] VITALS (48 sets, daily range): BP systolic 118–185; BP diastolic 52–115; PULSE 55–83; RESP 6–72; TEMP 97.8–98.4; O2SAT 96–100
--- NOTE | 2025-08-26 03:32 | NUR ---
REPORT GIVEN TO TAE BHATT
[2025-08-26 05:38] LABS: IMMATURE GRANULOCYTE ABSOLUTE 0.01 K/uL (0-1); NUCLEATED RED BLOOD CELLS 0.0 % (0.0-0.19); PLATELET COUNT (AUTO) 186 K/uL (130-400); RED BLOOD CELL COUNT(AUTO) 4.23 MIL/uL (4.00-5.50); RED CELL DISTRIBUTION WIDTH 13.5 % (11.0-15.5); WHITE BLOOD COUNT (AUTO) 4.8 K/uL (4.8-10.8)
[2025-08-26 05:54] LABS: CREATININE 0.8 mg/dL (0.5-1.0); GLOMERULAR FILTR. RATE CALC 75.0 mL/min (>90); GLUCOSE,RANDOM 97.0 mg/dL (70-105); SODIUM SERUM 135.0 mmol/L (136-145); UREA NITROGEN, BLOOD 14.0 mg/dL (7-18)
[2025-08-26] MEDS ORDERED: VITA-427 PO (09:19)
[2025-08-26] MEDS ORDERED: ASCO10004 PO (09:19)
[2025-08-26] MEDS ORDERED: MAGN500C4 PO (09:19)
[2025-08-26] MEDS: ENOXAPARIN SODIUM 30 MG/0.3 ML SQ SCH (10:06)
[2025-08-26] MEDS: ASPIRIN 81MG CHEW TAB PO SCH (10:07)
--- NOTE | 2025-08-26 10:42 | PN ---
[facility] PROGRESS NOTE Date Patient Seen: Aug 26, 2025 Time of Visit: 10:42 Supervising Physician: Dr Leoncio Cervantes Consulting Physician: Hospitalist Outpatient Specialists: [ ] Inpatient Consults: [ ] PROBLEM LIST: Hypertensive urgency, POA Hyperlipidemia, POA Renal artery stenosis, POA Hyponatremia, POA History of CAD History Internal carotid artery stenosis Mesenteric artery stenosis INTERVAL HISTORY: Patient seen and examined, all labs and imaging have been reviewed, patient is awake alert and oriented Patient's reporting no chest pain or shortness of breath, no headache, no abdominal complaints. No numbness or tingling to the lower extremities Patient is ambulatory, actually walking from the bathroom at the beginning of my exam Comfortable at bedside chair Seen by cardiology who is considering a renal angiogram tomorrow. She has been placed NPO midnight Nursing reports no acute events overnight Afebrile Plan: Follow cardiology recs NPO midnight Telemetry Aspirin, Plavix, Lovenox Statin GI prophylaxis Total care time 41 minutes, time excludes any procedures or educational time REVIEW OF SYSTEMS: 12 point ROS reviewed with patient. Pertinent positives mentioned above. Otherwise negative. PHYSICAL EXAM: GENERAL: alert, weak, awake oriented x 3 HEENT: EOMI, Sclera non icteric, moist mucosa NECK: Supple, no JVD, trachea midline LUNGS: Clear breath sounds bilaterally. No wheezes HEART: Regular rate and rhythm. Normal S1 and S2, without murmurs ABD: Abdomen soft, nontender. Bowel sounds present EXT: No clubbing cyanosis or edema NEURO: Alert and oriented to person, follows commands Vital Signs (last 8hr) Date Time Temp Pulse Resp B/P (MAP) Pulse Ox O2 Delivery O2 Flow Rate FiO2 08/26/25 10:07 149/52 08/26/25 08:53 71 32 149/52 (84) 99 21 08/26/25 08:38 73 13 143/61 (88) 99 21 08/26/25 08:30 70 44 99 21 08/26/25 08:25 18 N/A Room Air 08/26/25 08:23 69 62 137/54 (81) 98 21 08/26/25 08:15 71 27 98 21 08/26/25 08:08 74 26 150/70 (96) 98 21 08/26/25 08:00 99 Room Air* 0 08/26/25 08:00 72 20 99 21 08/26/25 08:00 97.9 08/26/25 07:53 71 13 152/62 (92) 97 21 08/26/25 07:45 76 32 99 21 08/26/25 07:37 68 18 154/67 (96) 98 21 08/26/25 07:30 70 13 99 21 08/26/25 07:23 71 15 124/60 (81) 99 21 08/26/25 07:15 71 26 100 21 08/26/25 07:08 78 26 146/65 (92) 98 21 08/26/25 07:00 68 20 99 21 08/26/25 06:53 83 72 156/65 (95) 99 21 08/26/25 06:45 65 16 99 21 08/26/25 04:08 55 170/69 98 08/26/25 03:53 58 183/85 98 08/26/25 03:40 99 Room Air* 0 21 08/26/25 03:38 64 169/62 97 08/26/25 03:24 97.9 60 16 135/60 97 Room Air* 0 21 LABS: Hematology Labs: Test 08/26/25 05:17 Range/Units White Blood Count 4.8 4.8-10.8 K/uL Red Blood Count 4.23 4.00-5.50 MIL/uL Hemoglobin 12.0 12.0-16.0 g/dL Hematocrit 36.8 36-48 % Mean Corpuscular Volume 87.0 79-99 fL Mean Corpuscular Hemoglobin 28.4 27.0-33.0 pg Mean Corpuscular Hemoglobin Concent 32.6 32.0-36.0 g/dL Red Cell Distribution Width 13.5 11.0-15.5 % Platelet Count 186 130-400 K/uL Mean Platelet Volume 10.0 7.5-10.5 fL Immature Granulocyte % (Auto) 0.2 0-1 % Neutrophils (%) (Auto) 59.2 40.0-77.0 % Lymphocytes (%) (Auto) 23.2 21.0-51.0 % Monocytes (%) (Auto) 13.0 3.0-13.0 % Eosinophils (%) (Auto) 3.6 0.0-8.0 % Basophils (%) (Auto) 0.8 0.0-5.0 % Neutrophils # (Auto) 2.8 1.8-7.7 K/uL Lymphocytes # (Auto) 1.1 1.0-4.8 K/uL Monocytes # (Auto) 0.6 0.1-1.0 K/uL Eosinophils # (Auto) 0.17 0.00-0.70 K/uL Basophils # (Auto) 0.04 0.00-0.20 K/uL Absolute Immature Granulocyte (auto 0.01 0-1 K/uL Nucleated Red Blood Cells 0.0 0.0-0.19 % Chemistry Labs: Test 08/26/25 05:17 08/25/25 17:23 Range/Units Sodium Level 135 L 136-145 mmol/L Potassium Level 4.4 3.5-5.1 mmol/L Chloride Level 99 L 101-111 mmol/L Carbon Dioxide Level 29 21-32 mmol/L Blood Urea Nitrogen 14 7-18 mg/dL Creatinine 0.8 0.5-1.0 mg/dL Glomerular Filtration Rate Calc 75 >90 mL/min Random Glucose 97 70-105 mg/dL Total Calcium 9.1 8.5-10.1 mg/dL Magnesium Level 2.10 1.80-2.40 mg/dL Total Bilirubin 0.4 0.2-1.0 mg/dL Aspartate Amino Transf (AST/SGOT) 28 10-37 U/L Alanine Aminotransferase (ALT/SGPT) 19 12-78 U/L Alkaline Phosphatase 56 50-136 U/L Total Protein 7.5 6.0-8.3 g/dL Albumin 3.7 3.5-5.0 g/dL Thyroid Stimulating Hormone (TSH) 3.43 0.36-3.74 uIU/mL Coagulation Labs: Test 08/25/25 17:23 Range/Units Prothrombin Time 10.5 9.6-11.6 SEC Prothromb Time International Ratio 0.99 0.85-1.15 Activated Partial Thromboplast Time 26.2 L 26.3-35.5 SEC DIAGNOSTICS / RADIOLOGY RESULTS: [ ] PLAN NEURO: Minimize central acting medications as possible. Fall Precautions. Well lighted room through the day and minimize interruptions through the night to prevent acute delirium. PULMONARY: Supplemental 02 as needed Titrate Fio2 to keep Spo2 > or = 90% DuoNebs and CPT as needed IS hourly while awake for pulmonary hygiene Out of bed to chair as tolerated CARDIOVASCULAR: Follow hemodynamics. Titrate vasopressor to keep MAP >65 or systolic blood pressure >95mmHg DIPS: LINES: GI & NUTRITION: Continue nutritional support Aspirations precautions Prokinetic agents and laxatives as needed KIDNEYS & ELECTROLYTES: Strict monitoring of intake and output Daily weights Avoid nephrotoxic agents Monitor electrolytes and replace as needed Goal urine output of 30mL/hr or 0.5mL/kg/hr Urine output: [ ] Fluid Balance: [ ] ENDOCRINE: Maintain blood glucose between 100-180 at all times. Insulin sliding scale for blood glucose management INFECTIOUS DISEASE: Trend temperature. Rose-culture if febrile. Micro: [ ] Antibiotics: [ ] HEMATOLOGY & COAGULATION: Monitor H&H. Keep Hgb > 7 Transfuse 1 unit of PRBC for Hgb < 7 Transfuse 1 pack of platelets of platelets < 20, 000 Watch for any signs and symptoms of bleeding SKIN: Pressure ulcer prevention per facility protocol Rehab: PT/OT Prophylaxis: GI: [ ] DVT: [ ] Code Status: Full Resuscitation NUZHAT WHITLEY PAC Aug 26, 2025 10:42
--- NOTE | 2025-08-26 11:58 | PN ---
[facility] PROGRESS NOTE Date of Service: Aug 26, 2025 Time of Service: 11:56 SUBJECTIVE: 08/26 the patient has been seen and examined at bedside, case has been discussed with the RN, no acute events overnight, the time of my visit the patient remains admitted to the ICU, off nicardipine drip since this morning. BP 185/93, afebrile, saturating normal on room air. The patient is alert oriented x3 at the time my visit, denies dizziness, no headache, no chest pain, shortness shortness for breath, no nausea, no vomiting, no abdominal pain. Plan is for the patient to have bilateral renal artery angiogram tomorrow by city bus driver. Follow a.m. labs. Possible downgraded to the PCU if blood pressure stable. Discussed with the patient and at bedside, all questions answered, agreed and understood the information provided. REVIEW OF SYSTEMS CONSTITUTIONAL: Denies fevers, chills, or night sweats. No unintentional weight loss reported. NEUROLOGICAL: Denies headache, amaurosis fugax, motor weakness, sensory deficit, vertigo/spinning sensation, gait abnormalities, or tremors. ENT: No hearing loss, otalgia, otorrhea, rhinitis, rhinorrhea, hoarseness, or sore throat. CARDIOVASCULAR: Denies any exertional angina, dyspnea on exertion, orthopnea, paroxysmal nocturnal dyspnea, palpitations, life-threatening arrhythmias, claudication. Reports Having poorly controlled blood pressure over the last several days. PULMONARY: Denies any shortness of breath, cough, phlegm/sputum, hemoptysis, pleuritic chest pain. SLEEP: Denies morning headaches, daytime somnolence or napping. Denies difficulty falling asleep, staying asleep, waking from sleep. Denies knowledge of snoring. GASTROINTESTINAL: Denies any type of dysphagia to either liquids or solids. Denies nausea, vomiting, pyrosis, early satiety, abdominal pain, diarrhea, constipation, or changes in stool consistency or caliber. Denies coffee-ground emesis, hematemesis, hematochezia, or melanotic stools. GENITOURINARY: Denies frequency, urgency, nocturia, hematuria or incontinence (Storage/Irritative symptoms.) Low urinary stream, straining to void, urinary intermittency or hesitancy, splitting of the voiding stream, terminal dribbling. ENDOCRINOLOGIC: Denies polyuria, polydipsia, polyphagia or heat/cold intolerances. HEMATOLOGIC: Denies thrombophilia/previous clots, or coagulopathy/bleeding disorders. ONCOLOGIC: Denies personal history of malignancy. DERMATOLOGIC: Denies rashes or pruritus. PSYCHIATRIC: Denies any suicidal or homicidal ideation. Denies hallucinations. PHYSICAL EXAM GENERAL APPEARANCE: The patient is awake, alert, and oriented, in no acute cardiopulmonary distress. NEUROLOGICAL: Cranial nerves II-XII grossly intact. Motor is 5/5 in bilateral upper and lower extremities proximal to distal. No sensory deficits. HEENT: Face is symmetric. Pupils are equal and reactive. Extraocular movements are intact. NECK: Supple. No JVD. No thyromegaly. No submental, submandibular, pre- /postauricular, occipital or supraclavicular lymphadenopathy. CHEST: Normal chest expansion. No Telemetry. LUNGS: Absence of any rales, rhonchi or any wheezing. CARDIOVASCULAR: Regular. S1 and S2 normal. No appreciable rubs, murmurs or gallops. ABDOMEN: Soft, nontender, and nondistended. There is no rebound, voluntary guarding, or rigidity. : Deferred. No [place]. EXTREMITIES: Non-edematous and not cyanotic. No clubbing. Good capillary refill. SKIN: No skin breakdown. Vital Signs (last 8hr) Date Time Temp Pulse Resp B/P (MAP) Pulse Ox O2 Delivery O2 Flow Rate FiO2 08/26/25 10:56 67 24 185/93 (123) 97 08/26/25 10:38 67 17 159/74 (102) 100 08/26/25 10:23 65 24 159/115 (130) 100 08/26/25 10:07 67 23 147/78 (101) 99 08/26/25 10:07 149/52 08/26/25 09:53 64 21 126/73 (90) 99 08/26/25 09:38 66 29 152/70 (97) 99 08/26/25 09:22 68 18 145/71 (95) 98 08/26/25 09:08 67 42 137/63 (87) 99 08/26/25 08:53 71 32 149/52 (84) 99 08/26/25 08:38 73 13 143/61 (88) 99 21 08/26/25 08:30 70 44 99 21 08/26/25 08:25 18 N/A Room Air 21 08/26/25 08:23 69 62 137/54 (81) 98 21 08/26/25 08:15 71 27 98 21 08/26/25 08:08 74 26 150/70 (96) 98 21 08/26/25 08:00 99 Room Air* 0 21 08/26/25 08:00 72 20 99 21 08/26/25 08:00 97.9 08/26/25 07:53 71 13 152/62 (92) 97 21 08/26/25 07:45 76 32 99 21 08/26/25 07:37 68 18 154/67 (96) 98 21 08/26/25 07:30 70 13 99 21 08/26/25 07:23 71 15 124/60 (81) 99 21 08/26/25 07:15 71 26 100 21 08/26/25 07:08 78 26 146/65 (92) 98 21 08/26/25 07:00 68 20 99 21 08/26/25 06:53 83 72 156/65 (95) 99 21 08/26/25 06:45 65 16 99 21 08/26/25 04:08 55 170/69 98 LABS: Laboratory: Test 08/26/25 05:17 08/25/25 21:03 08/25/25 17:23 Range/Units White Blood Count 4.8 4.8-10.8 K/uL Red Blood Count 4.23 4.00-5.50 MIL/uL Hemoglobin 12.0 12.0-16.0 g/dL Hematocrit 36.8 36-48 % Mean Corpuscular Volume 87.0 79-99 fL Mean Corpuscular Hemoglobin 28.4 27.0-33.0 pg Mean Corpuscular Hemoglobin Concent 32.6 32.0-36.0 g/dL Red Cell Distribution Width 13.5 11.0-15.5 % Platelet Count 186 130-400 K/uL Mean Platelet Volume 10.0 7.5-10.5 fL Immature Granulocyte % (Auto) 0.2 0-1 % Neutrophils (%) (Auto) 59.2 40.0-77.0 % Lymphocytes (%) (Auto) 23.2 21.0-51.0 % Monocytes (%) (Auto) 13.0 3.0-13.0 % Eosinophils (%) (Auto) 3.6 0.0-8.0 % Basophils (%) (Auto) 0.8 0.0-5.0 % Neutrophils # (Auto) 2.8 1.8-7.7 K/uL Lymphocytes # (Auto) 1.1 1.0-4.8 K/uL Monocytes # (Auto) 0.6 0.1-1.0 K/uL Eosinophils # (Auto) 0.17 0.00-0.70 K/uL Basophils # (Auto) 0.04 0.00-0.20 K/uL Absolute Immature Granulocyte (auto 0.01 0-1 K/uL Nucleated Red Blood Cells 0.0 0.0-0.19 % Sodium Level 135 L 136-145 mmol/L Potassium Level 4.4 3.5-5.1 mmol/L Chloride Level 99 L 101-111 mmol/L Carbon Dioxide Level 29 21-32 mmol/L Blood Urea Nitrogen 14 7-18 mg/dL Creatinine 0.8 0.5-1.0 mg/dL Glomerular Filtration Rate Calc 75 >90 mL/min Random Glucose 97 70-105 mg/dL Total Calcium 9.1 8.5-10.1 mg/dL Urine Random Creatinine 0.42 L 30-135 mg/dL Urine Random Sodium 48 40-220 mmol/l Prothrombin Time 10.5 9.6-11.6 SEC Prothromb Time International Ratio 0.99 0.85-1.15 Activated Partial Thromboplast Time 26.2 L 26.3-35.5 SEC Magnesium Level 2.10 1.80-2.40 mg/dL Total Bilirubin 0.4 0.2-1.0 mg/dL Aspartate Amino Transf (AST/SGOT) 28 10-37 U/L Alanine Aminotransferase (ALT/SGPT) 19 12-78 U/L Alkaline Phosphatase 56 50-136 U/L Total Protein 7.5 6.0-8.3 g/dL Albumin 3.7 3.5-5.0 g/dL Thyroid Stimulating Hormone (TSH) 3.43 0.36-3.74 uIU/mL Current Medications Medications (Trade) Dose Ordered Sig/Amy Route PRN Reason Start Time Stop Time Status Last Admin Dose Admin Acetaminophen (TYLenol 325MG TAB) 650 mg Q6H PRN PO MILD PAIN (1-3) 08/25/25 18:00 09/24/25 17:59 Aspirin (Aspirin 81mg Chew Tab) 81 mg DAILY PO 08/26/25 09:00 09/25/25 08:59 08/26/25 10:07 81 MG Atorvastatin Calcium (LIPItor 40MG) 40 mg HS PO 08/25/25 21:00 09/24/25 20:59 Carvedilol (Coreg 6.25MG) 6.25 mg BID PO 08/25/25 21:00 09/24/25 20:59 08/26/25 10:07 6.25 MG Clopidogrel Bisulfate (plaVIX 75MG) 75 mg DAILY PO 08/26/25 09:00 09/25/25 08:59 08/26/25 10:07 75 MG Enoxaparin Sodium (Lovenox) 30 mg DAILY SQ 08/26/25 09:00 09/25/25 08:59 08/26/25 10:06 30 MG Famotidine (Pepcid 20mg Tab) 20 mg Q24H PO 08/25/25 21:00 09/24/25 20:59 08/25/25 21:15 20 MG Ipratropium [place] (AtrovENT UD) 0.5 mg Q6H PRN IH SHORTNESS OF BREATH 08/25/25 18:00 09/24/25 17:59 Isosorbide Mononitrate (Imdur 60mg Sr) 60 mg DAILY PO 08/26/25 09:00 09/25/25 08:59 Miscellaneous Medication (Famotidine ) 1 tab HS PO 08/25/25 21:00 08/25/25 18:36 DC Nicardipine HCl 25 mg/Sodium Chloride 250 ml @ 0 mls/hr PROTOCOL IV 08/25/25 18:00 09/24/25 17:59 08/25/25 18:04 50 MLS/HR Nitroglycerin (Nitrostat) 0.4 mg AD PRN SL CHEST PAIN 08/25/25 18:00 09/24/25 17:59 Ondansetron HCl (zoFRAN 4MG INJ) 4 mg Q6H PRN IVP NAUSEA/VOMITING 08/25/25 18:00 09/24/25 17:59 Pantoprazole Sodium (PROTonix 40MG TAB) 40 mg DAILY PO 08/26/25 09:00 08/25/25 18:36 DC DIAGNOSTICS / RADIOLOGY: [ ] ASSESSMENT: Hypertensive emergency, POA History of uncontrolled hypertension, POA Recent hospitalization in [facility] in 06/2025 with hypertensive urgency, POA History of renal artery stenosis with findings of 95% stenosis of the left main renal artery and 30% stenosis of the right renal artery on CT from 08/17/2025, POA History of bilateral internal carotid artery stenosis, 50-69%, POA History of peripheral arterial disease POA History of superior mesenteric artery stenosis, POA History of nonobstructive coronary artery disease, POA History of GERD, POA Hyponatremia, POA Anemia, mild, POA PLAN: the patient has been seen and examined at bedside, case has been discussed with the RN, no acute events overnight, the time of my visit the patient remains admitted to the ICU, off nicardipine drip since this morning. BP 185/93, afebrile, saturating normal on room air. The patient is alert oriented x3 at the time my visit, denies dizziness, no headache, no chest pain, shortness shortness for breath, no nausea, no vomiting, no abdominal pain. Plan is for the patient to have bilateral renal artery angiogram tomorrow by city bus driver. Follow a.m. labs. Possible downgraded to the PCU if blood pressure stable. Discussed with the patient and at bedside, all questions answered, agreed and understood the information provided. NEURO: Minimize central acting medications as possible. Fall Precautions. Well lighted room through the day and minimize interruptions through the night to prevent acute delirium. PULMONARY: Supplemental 02 as needed BiPAP as necessary, for respiratory distress Titrate Fio2 to keep Spo2 > or = 90% DuoNebs and CPT as needed IS hourly while awake for pulmonary hygiene prn Out of bed to chair as tolerated Maintain aspiration precautions at all times CARDIOVASCULAR: Follow hemodynamics. Vital signs per facility protocol GI & NUTRITION: Continue nutritional support Aspirations precautions Prokinetic agents and laxatives as needed KIDNEYS & ELECTROLYTES: Strict monitoring of intake and output Daily weights Avoid nephrotoxic agents Monitor electrolytes and replace as needed Goal urine output of 30mL/hr or 0.5mL/kg/hr Medications to be dosed according to renal function. Avoid contrast if possible ENDOCRINE: Maintain blood glucose between 100-180 at all times. Insulin sliding scale for blood glucose management Hypoglycemia and hyperglycemia protocol in place INFECTIOUS DISEASE: Trend temperature, WBC and procalcitonin level Follow cultures, deescalate antibiotics as soon as possible. Panculture if new onset fever HEMATOLOGY & COAGULATION: Monitor H&H. Keep Hgb > 7 Transfuse 1 unit of PRBC for Hgb < 7 Transfuse 1 pack of platelets of platelets < 20, 000 Watch for any signs and symptoms of bleeding SKIN: Pressure ulcer prevention per facility protocol Specialty mattress as needed ORTHO/REHAB Continue PT/OT PRN: MEDICATIONS Tylenol 650 mg po every 4 hrs for fever zofran 4 mg IV every 6 hrs for n/v Hydralazine 5 mg IV every 4 hrs systolic pressure > 160 bowel regiment: lactulose 20 gm PO BID PRN constipation Supportive measures: Continue GI and DVT prophylaxis Disposition: Pending improvement in clinical condition All questions answered time spent: > 35 min PETROS LOZOYA MD Aug 26, 2025 11:58
--- NOTE | 2025-08-26 12:26 | CONS ---
HISTORY OF PRESENT ILLNESS: I was asked by Dr. 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 The patient has had multiple problems with different agents for blood pressure control. She has had severe hypertension. She also has a history of nonobstructive carotid artery disease and extensive peripheral vascular disease. She was felt to have superior mesenteric artery stenosis and renal artery stenosis as well as a cardiac murmur. The patient had multiple agents utilized for blood pressure control including high-dose hydralazine. She has also been on amlodipine. Hyperkalemia resulted in the setting of angiotensin receptor blockers resulting in cessation of therapy. The patient presented to the office and was seen by Dr. Suzan Minre because of malignant hypertension. She was hospitalized and started on nicardipine drip. This patient has had multiple evaluations by ultrasound studies and CT angiography. Her duplex studies have documented severe peripheral vascular disease. She also had a small left kidney with evidence of renal parenchymal disease with probable renal artery stenosis. CT angiography was performed at [facility], which was consistent with severe left renal artery stenosis, which was felt to be at 95% stenotic with mild right renal artery stenosis. The abdominal aorta was extensively calcified as were the iliac vessels. The patient also had subpleural fibrosis of lung miles. This patient has had a fairly complicated vascular history. She has had prior interventions for peripheral vascular disease and had remote stenting of the right common femoral artery with pericardial femoral patch and right brachial artery patch. She has had issues with nonobstructive coronary artery disease by CT angiography. Today, I have evaluated this patient. I have had a detailed discussion with her in regards to the findings on her prior studies. I have personally reviewed the patient's images. It is evident that she has evidence of critical left renal artery stenosis with heavy calcium burden in the renal artery as well as in the aorta. Moreover, the patient has what appears to be an indwelling endoluminal graft in the right common femoral artery, probably Viabahn or equivalent. This is patent. She does have extensive disease in the femoral arteries bilaterally. PHYSICAL EXAMINATION: GENERAL: On exam, the patient appears to be comfortable in no apparent distress. VITAL SIGNS: Currently stable. NECK: The patient has no jugular venous distention. She has a subtle carotid bruit. CARDIAC: Exam is remarkable for a 2/6 systolic ejection murmur at the left sternal border and the aortic region. There are no diastolic murmurs, rubs, or gallops. ABDOMEN: Soft and benign. There may be a subtle bruit in the epigastric region. EXTREMITIES: Without cyanosis, clubbing, or edema. ASSESSMENT AND PLAN: I have had a detailed discussion with the patient in regards to my assessment of her images. I have reviewed the alternative modes of management including the option of proceeding with angiography and an attempted angioplasty and stenting of the left renal artery. The patient does have sighting on the report of the CAT scan that she may have superior mesenteric artery stenosis; however, when I assessed the CAT scan personally, I do not detect any significant SMA stenosis and the patient is not symptomatic from that standpoint. Moreover, the CHARMAINE is patent. After a detailed discussion, the patient has requested to proceed with angiography and attempted angioplasty and stenting of the left renal artery. I have discussed the procedure with her at great length including the potential for complications, and in particular, the potential for CVA, SC, bleeding, , vascular compromise, loss of limb. All her questions were invited and answered. She is requested to proceed. TID: [id number] RECEIPT: [id number]
[2025-08-26] MEDS: ISOSORBIDE MONO 60MG SR TAB PO SCH (13:00)
--- NOTE | 2025-08-26 14:59 | NUR ---
DCP: HOME Pt reports she lives at home independently with her Jeff Gomez [phone]. Pt reports she is able to complete self care and home management on her own. No provider, HD or HH services needed at this time. PCP is Maral Singh and uses [facility] for rx needs. DCP is home Addendum: 08/26/25 at 1501 by NATASHA ECHOLS SS Amended: Links added.
--- NOTE | 2025-08-26 15:13 | NUR ---
[facility] ICU Skin Assessment: Patient assessed by wound healing team. Patient with no wounds or skin breakdown noted. Assessment and recommendations provided to primary nurse. Education provided.
[2025-08-27] VITALS (38 sets, daily range): BP systolic 110–174; BP diastolic 47–88; PULSE 52–72; RESP 9–22; TEMP 97.7–97.9; O2SAT 96–99
[2025-08-27 04:34] LABS: NUCLEATED RED BLOOD CELLS 0.0 % (0.0-0.19); PLATELET COUNT (AUTO) 172.0 K/uL (130-400); RED BLOOD CELL COUNT(AUTO) 3.96 MIL/uL (4.00-5.50); RED CELL DISTRIBUTION WIDTH 13.5 % (11.0-15.5); WHITE BLOOD COUNT (AUTO) 4.2 K/uL (4.8-10.8)
[2025-08-27 04:43] LABS: ASPARTATE AMINOTRANSFERASE 19.0 U/L (10-37); CREATININE 1.0 mg/dL (0.5-1.0); GLOMERULAR FILTR. RATE CALC 58.0 mL/min (>90); GLUCOSE,RANDOM 99.0 mg/dL (70-105); SODIUM SERUM 132.0 mmol/L (136-145); TOTAL PROTEIN, SERUM 6.7 g/dL (6.0-8.3); UREA NITROGEN, BLOOD 18.0 mg/dL (7-18)
--- NOTE | 2025-08-27 07:35 | PN ---
PROBLEM LIST: 1. Extensive peripheral vascular disease. 2. Malignant renovascular hypertension. 3. Dyslipidemia. 4. 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 5. Findings of superior mesenteric artery stenosis. 6. Hyperkalemia. 7. Status post multiple percutaneous and surgical interventions for peripheral vascular disease including right and left common femoral artery endarterectomies, placement of an endoluminal graft in the right common femoral artery, right brachial artery cut down and thrombectomy after access for percutaneous intervention. 8. History of heavy tobacco use, currently not a smoker. 9. History of atypical chest discomfort. 10. Moderate bilateral carotid artery stenosis in the 50-69% range by carotid flow studies. 11. GERD. 12. HISTORY OF HYDRALAZINE ALLERGY. This patient was hospitalized predominantly because of malignant hypertension which has been poorly controlled. Unfortunately, the patient has had multiple problems limiting our ability to utilize different agents. SHE IS ALLERGIC TO HYDRALAZINE and had a history of hyperkalemia, which would preclude the utilization of angiotensin-converting enzyme inhibitors or angiotensin receptor blockers. The patient was evaluated by Dr. Suzan Miner and hospitalized because of poorly-controlled hypertension. It is evident from her prior evaluation that she has had multiple surgical interventions and percutaneous interventions for severe peripheral vascular disease. When I evaluated the patient's images personally, I felt that she had severe left renal artery stenosis with extensive calcific involvement. She did have some right renal artery stenosis which was not as critical. The patient had some calcification in the superior mesenteric artery; however, I did not think it was significantly stenotic. The celiac trunk was patent. The CHARMAINE was also patent. The patient's aorta was heavily calcified as well. On evaluating the patient this morning, she appears to be comfortable in no apparent distress. Her blood pressure has been as high as 160s and 180s. Her heart rate is in the 50s and her saturation is 99% on room air. The patient is currently lying flat in bed. The exam is remarkable for palpable pulses in both dorsalis pedis positions. She has a surgical scar in the right upper arm from her prior thrombotic event. She has bilateral common femoral artery surgical scars, but she does have palpable pulses. Laboratory studies this morning revealed a white count of 4.2, H and H of 11.4 and 34.1 respectively with a plate count of 172,000. The chemistries have revealed a sodium of 132, up from 129 on the 4th; the potassium was 4.0, down from 4.5 on the 4th; the chloride is 99; and CO2 is 26. Her BUN is 18 and creatinine of 1.0 with a GFR of 58. The patient's albumin is mildly decreased at 3.2. The TSH was 3.43. The magnesium is 2.1. The patient's white count was 4.2, H and H of 11.4 and 34.2 respectively and platelet count of 172,000. The patient is currently maintained on a baby aspirin, clopidogrel, isosorbide, low-dose Lovenox, atorvastatin, carvedilol, famotidine, ipratropium, and additional p.r.n. medications. Yesterday, I had a detailed discussion with the patient in regard to the findings on her evaluation and the indication for proceeding with an attempted percutaneous revascularization. I had reviewed the procedure at great length with benefits, goals, and risks including the potential for complications and in particular, the potential for CVA, CA, , vascular compromise, infection, bleeding, and loss of limb. All the patient's questions were invited and answered. Today, I have once again reviewed the procedure with her and her . I have once again addressed all their questions. I did explain to the patient and her that her vascular access is going to be somewhat challenging. Given the events that happened with the access of the right brachial artery in the past, I am reluctant to utilize a brachial approach. The patient has had an endoluminal graft in the right common femoral artery which would make access in that area complex. Even though she had a left common femoral artery endarterectomy, I think that that is our best approach, albeit at a higher risk. After a detailed discussion, all their questions were invited and answered and they requested to proceed. TID: [id number] RECEIPT: [id number]
[2025-08-27 08:13] LABS: RHEUMATOID ARTHRITIS FACTOR <10.0 IU/mL (<14.0)
--- NOTE | 2025-08-27 08:14 | NUR ---
PATIENT TAKEN TO PARTS CLASSIFIER
[2025-08-27] MEDS ORDERED: SODIUM BICARB 50MEQ 50ML VIAL 50 ML ONE (08:20)
[2025-08-27] MEDS ORDERED: HEParin-NS 1,000 UNIT/500 ML 1,000 ML IV ONE (08:20)
[2025-08-27] MEDS ORDERED: IODIXANOL 320 MG/ML 100 ML VIAL ONE (08:20)
[2025-08-27] MEDS ORDERED: LIDOCAINE HCL 400MG/20ML VIAL ONE (08:20)
[2025-08-27] MEDS ORDERED: MIDAZOLAM HCL 1 MG/ML 2ML VIAL ONE ×2 (08:41→08:53)
[2025-08-27] MEDS ORDERED: NITROGLYCERIN 50MG VIAL ONE (08:42)
[2025-08-27] MEDS ORDERED: NITROGLYCERIN 4.9GM SPRAY 60 SPRAY/BOT SPRY TL ONE (10:23)
--- NOTE | 2025-08-27 11:04 | PN ---
[facility] PROGRESS NOTE Date Patient Seen: Aug 27, 2025 Time of Visit: 11:03 Supervising Physician: Dr Barak Vega Consulting Physician: Hospitalist Outpatient Specialists: [ ] Inpatient Consults: [ ] PROBLEM LIST: Hypertensive urgency, POA Hyperlipidemia, POA Renal artery stenosis, POA Hyponatremia, POA History of CAD History Internal carotid artery stenosis Mesenteric artery stenosis INTERVAL HISTORY: Patient seen and examined, all labs and imaging have been reviewed, patient is NPO for angiogram scheduled for this morning No acute events overnight Her vital signs are stable She is off the Cardene, BP within parameters Comfortable in no complaints Afebrile Plan: Follow cardiology recs NPO for angiogram, we will follow postprocedure Telemetry Aspirin, Plavix, Lovenox Statin GI prophylaxis Total care time 38 minutes, time excludes any procedures or educational time REVIEW OF SYSTEMS: 12 point ROS reviewed with patient. Pertinent positives mentioned above. Otherwise negative. PHYSICAL EXAM: GENERAL: alert, weak, awake oriented x 3 HEENT: EOMI, Sclera non icteric, moist mucosa NECK: Supple, no JVD, trachea midline LUNGS: Clear breath sounds bilaterally. No wheezes HEART: Regular rate and rhythm. Normal S1 and S2, without murmurs ABD: Abdomen soft, nontender. Bowel sounds present EXT: No clubbing cyanosis or edema NEURO: Alert and oriented to person, follows commands Vital Signs (last 8hr) Date Time Temp Pulse Resp B/P (MAP) Pulse Ox O2 Delivery O2 Flow Rate FiO2 08/27/25 08:00 97.9 55 21 152/87 99 Room Air 08/27/25 08:00 98 Room Air* 0 21 08/27/25 07:23 58 18 N/A Room Air 08/27/25 07:00 67 20 147/70 98 Room Air 08/27/25 05:38 55 9 160/61 99 Room Air 08/27/25 04:38 56 16 119/47 98 Room Air 08/27/25 04:00 98 Room Air* 0 21 08/27/25 03:38 62 10 135/56 98 Room Air LABS: Hematology Labs: Test 08/27/25 04:09 08/26/25 05:17 Range/Units White Blood Count 4.2 L 4.8-10.8 K/uL Red Blood Count 3.96 L 4.00-5.50 MIL/uL Hemoglobin 11.4 L 12.0-16.0 g/dL Hematocrit 34.1 L 36-48 % Mean Corpuscular Volume 86.1 79-99 fL Mean Corpuscular Hemoglobin 28.8 27.0-33.0 pg Mean Corpuscular Hemoglobin Concent 33.4 32.0-36.0 g/dL Red Cell Distribution Width 13.5 11.0-15.5 % Platelet Count 172 130-400 K/uL Mean Platelet Volume 9.9 7.5-10.5 fL Nucleated Red Blood Cells 0.0 0.0-0.19 % Immature Granulocyte % (Auto) 0.2 0-1 % Neutrophils (%) (Auto) 59.2 40.0-77.0 % Lymphocytes (%) (Auto) 23.2 21.0-51.0 % Monocytes (%) (Auto) 13.0 3.0-13.0 % Eosinophils (%) (Auto) 3.6 0.0-8.0 % Basophils (%) (Auto) 0.8 0.0-5.0 % Neutrophils # (Auto) 2.8 1.8-7.7 K/uL Lymphocytes # (Auto) 1.1 1.0-4.8 K/uL Monocytes # (Auto) 0.6 0.1-1.0 K/uL Eosinophils # (Auto) 0.17 0.00-0.70 K/uL Basophils # (Auto) 0.04 0.00-0.20 K/uL Absolute Immature Granulocyte (auto 0.01 0-1 K/uL Chemistry Labs: Test 08/27/25 04:09 08/25/25 17:23 Range/Units Sodium Level 132 L 136-145 mmol/L Potassium Level 4.0 3.5-5.1 mmol/L Chloride Level 99 L 101-111 mmol/L Carbon Dioxide Level 26 21-32 mmol/L Blood Urea Nitrogen 18 7-18 mg/dL Creatinine 1.0 0.5-1.0 mg/dL Glomerular Filtration Rate Calc 58 >90 mL/min Random Glucose 99 70-105 mg/dL Total Calcium 8.9 8.5-10.1 mg/dL Magnesium Level 2.10 1.80-2.40 mg/dL Total Bilirubin 0.4 0.2-1.0 mg/dL Aspartate Amino Transf (AST/SGOT) 19 10-37 U/L Alanine Aminotransferase (ALT/SGPT) 17 12-78 U/L Alkaline Phosphatase 51 50-136 U/L Total Protein 6.7 6.0-8.3 g/dL Albumin 3.2 L 3.5-5.0 g/dL Thyroid Stimulating Hormone (TSH) 3.43 0.36-3.74 uIU/mL Coagulation Labs: Test 08/25/25 17:23 Range/Units Prothrombin Time 10.5 9.6-11.6 SEC Prothromb Time International Ratio 0.99 0.85-1.15 Activated Partial Thromboplast Time 26.2 L 26.3-35.5 SEC DIAGNOSTICS / RADIOLOGY RESULTS: [ ] PLAN NEURO: Minimize central acting medications as possible. Maintain fall precautions, adequate lighting during the day PULMONARY: Supplemental 02 as needed. Maintain aspiration precautions at all times CARDIOVASCULAR: Follow hemodynamics. Vital signs per facility protocol GI & NUTRITION: Continue with nutritional support. Continue stool softeners and laxatives as needed. KIDNEYS & ELECTROLYTES: Strict monitoring of intake, output and overall fluid balance. Avoid nephrotoxic medications to the extent possible. Medications to be dosed according to renal function. Monitor electrolytes and replace as needed ENDOCRINE: Maintain blood glucose between 100-180 at all times. Hypoglycemia protocol in place INFECTIOUS DISEASE: Trend temperature, WBC and procalcitonin level Follow cultures, deescalate antibiotics as soon as possible. Panculture if new onset fever ONCOLOGY/HEMATOLOGY/COAGULATION: Monitor for s/s of bleeding Monitor hemoglobin, coagulation studies as needed SKIN: Pressure ulcer prevention per facility protocol Specialty mattress ORTHO/REHAB: Continue PT/OT Prophylaxis: Continue GI and DVT prophylaxis Code Status: Full Resuscitation Disposition: TBD total critical care time: 40 min NUZHAT WHITLEY Aug 27, 2025 11:04 BARAK CHAO MD Aug 28, 2025 07:15
[2025-08-27] MEDS: 0.9%NACL 1000ML 1,000 ML IV SCH (11:19)
[2025-08-27] MEDS: amLODIPine 5 MG TAB ONE (11:22)
--- NOTE | 2025-08-27 13:26 | PN ---
[facility] PROGRESS NOTE Date of Service: Aug 27, 2025 Time of Service: 13:25 SUBJECTIVE: 08/26 the patient has been seen and examined at bedside, case has been discussed with the RN, no acute events overnight, the time of my visit the patient remains admitted to the ICU, off nicardipine drip since this morning. BP 185/93, afebrile, saturating normal on room air. The patient is alert oriented x3 at the time my visit, denies dizziness, no headache, no chest pain, shortness shortness for breath, no nausea, no vomiting, no abdominal pain. Plan is for the patient to have bilateral renal artery angiogram tomorrow by it trainer. Follow a.m. labs. Possible downgraded to the PCU if blood pressure stable. Discussed with the patient and at bedside, all questions answered, agreed and understood the information provided. 08/27 the patient has been seen and examined at bedside, case has been discussed with the RN, no acute events overnight, the time of my visit the patient remains admitted to the ICU, off nicardipine drip since this morning. The patient is alert oriented x3 at the time my visit, denies dizziness, no headache, no chest pain, shortness shortness for breath, no nausea, no vomiting, no abdominal pain. Plan is for the patient to have bilateral renal artery angiogram today by it trainer. Follow a.m. labs. Possible downgraded to the PCU if blood pressure stable. Discussed with the patient and at bedside, all questions answered, agreed and understood the information provided. REVIEW OF SYSTEMS CONSTITUTIONAL: Denies fevers, chills, or night sweats. No unintentional weight loss reported. NEUROLOGICAL: Denies headache, amaurosis fugax, motor weakness, sensory deficit, vertigo/spinning sensation, gait abnormalities, or tremors. ENT: No hearing loss, otalgia, otorrhea, rhinitis, rhinorrhea, hoarseness, or sore throat. CARDIOVASCULAR: Denies any exertional angina, dyspnea on exertion, orthopnea, paroxysmal nocturnal dyspnea, palpitations, life-threatening arrhythmias, claudication. Reports Having poorly controlled blood pressure over the last several days. PULMONARY: Denies any shortness of breath, cough, phlegm/sputum, hemoptysis, pleuritic chest pain. SLEEP: Denies morning headaches, daytime somnolence or napping. Denies difficulty falling asleep, staying asleep, waking from sleep. Denies knowledge of snoring. GASTROINTESTINAL: Denies any type of dysphagia to either liquids or solids. Denies nausea, vomiting, pyrosis, early satiety, abdominal pain, diarrhea, constipation, or changes in stool consistency or caliber. Denies coffee-ground emesis, hematemesis, hematochezia, or melanotic stools. GENITOURINARY: Denies frequency, urgency, nocturia, hematuria or incontinence (Storage/Irritative symptoms.) Low urinary stream, straining to void, urinary intermittency or hesitancy, splitting of the voiding stream, terminal dribbling. ENDOCRINOLOGIC: Denies polyuria, polydipsia, polyphagia or heat/cold intolerances. HEMATOLOGIC: Denies thrombophilia/previous clots, or coagulopathy/bleeding disorders. ONCOLOGIC: Denies personal history of malignancy. DERMATOLOGIC: Denies rashes or pruritus. PSYCHIATRIC: Denies any suicidal or homicidal ideation. Denies hallucinations. PHYSICAL EXAM GENERAL APPEARANCE: The patient is awake, alert, and oriented, in no acute cardiopulmonary distress. NEUROLOGICAL: Cranial nerves II-XII grossly intact. Motor is 5/5 in bilateral upper and lower extremities proximal to distal. No sensory deficits. HEENT: Face is symmetric. Pupils are equal and reactive. Extraocular movements are intact. NECK: Supple. No JVD. No thyromegaly. No submental, submandibular, pre-/postauricular, occipital or supraclavicular lymphadenopathy. CHEST: Normal chest expansion. No Telemetry. LUNGS: Absence of any rales, rhonchi or any wheezing. CARDIOVASCULAR: Regular. S1 and S2 normal. No appreciable rubs, murmurs or gallops. ABDOMEN: Soft, nontender, and nondistended. There is no rebound, voluntary guarding, or rigidity. : Deferred. No [place]. EXTREMITIES: Non-edematous and not cyanotic. No clubbing. Good capillary refill. SKIN: No skin breakdown. Vital Signs (last 8hr) Date Time Temp Pulse Resp B/P (MAP) Pulse Ox O2 Delivery O2 Flow Rate FiO2 08/27/25 12:00 98 Room Air* 0 21 08/27/25 11:45 60 14 149/88 100 Room Air 08/27/25 11:30 54 16 159/71 100 Room Air 08/27/25 11:15 58 20 144/80 100 Room Air 08/27/25 11:05 54 20 156/70 99 Room Air 08/27/25 08:00 97.9 55 21 152/87 99 Room Air 08/27/25 08:00 98 Room Air* 0 21 08/27/25 07:23 58 18 N/A Room Air 21 08/27/25 07:00 67 20 147/70 98 Room Air 08/27/25 05:38 55 9 160/61 99 Room Air LABS: Laboratory: Test 08/27/25 04:09 08/26/25 07:00 08/26/25 05:17 08/25/25 21:03 Range/Units White Blood Count 4.2 L 4.8-10.8 K/uL Red Blood Count 3.96 L 4.00-5.50 MIL/uL Hemoglobin 11.4 L 12.0-16.0 g/dL Hematocrit 34.1 L 36-48 % Mean Corpuscular Volume 86.1 79-99 fL Mean Corpuscular Hemoglobin 28.8 27.0-33.0 pg Mean Corpuscular Hemoglobin Concent 33.4 32.0-36.0 g/dL Red Cell Distribution Width 13.5 11.0-15.5 % Platelet Count 172 130-400 K/uL Mean Platelet Volume 9.9 7.5-10.5 fL Nucleated Red Blood Cells 0.0 0.0-0.19 % Sodium Level 132 L 136-145 mmol/L Potassium Level 4.0 3.5-5.1 mmol/L Chloride Level 99 L 101-111 mmol/L Carbon Dioxide Level 26 21-32 mmol/L Blood Urea Nitrogen 18 7-18 mg/dL Creatinine 1.0 0.5-1.0 mg/dL Glomerular Filtration Rate Calc 58 >90 mL/min Random Glucose 99 70-105 mg/dL Total Calcium 8.9 8.5-10.1 mg/dL Magnesium Level 2.10 1.80-2.40 mg/dL Total Bilirubin 0.4 0.2-1.0 mg/dL Aspartate Amino Transf (AST/SGOT) 19 10-37 U/L Alanine Aminotransferase (ALT/SGPT) 17 12-78 U/L Alkaline Phosphatase 51 50-136 U/L Total Protein 6.7 6.0-8.3 g/dL Albumin 3.2 L 3.5-5.0 g/dL Cortisol AM Sample 18.6 6.2-19.4 ug/dL Immature Granulocyte % (Auto) 0.2 0-1 % Neutrophils (%) (Auto) 59.2 40.0-77.0 % Lymphocytes (%) (Auto) 23.2 21.0-51.0 % Monocytes (%) (Auto) 13.0 3.0-13.0 % Eosinophils (%) (Auto) 3.6 0.0-8.0 % Basophils (%) (Auto) 0.8 0.0-5.0 % Neutrophils # (Auto) 2.8 1.8-7.7 K/uL Lymphocytes # (Auto) 1.1 1.0-4.8 K/uL Monocytes # (Auto) 0.6 0.1-1.0 K/uL Eosinophils # (Auto) 0.17 0.00-0.70 K/uL Basophils # (Auto) 0.04 0.00-0.20 K/uL Absolute Immature Granulocyte (auto 0.01 0-1 K/uL Rheumatoid Factor <10.0 <14.0 IU/mL Anti-Nuclear Antibody Screen Negative Negative Anti-Nuclear Antibody Interpret RAYRAY-1 Antibody SS-A/Ro Antibody SS-B/La Antibody Sm (Diallo) IgG Antibody, Quant MANAGER CHEMISTRY IgG Antibody, Quantitative Scl-70 (Scleroderma) Antibody Anti-Double Strand DNA Antibody Anti-Centromere IgG Antibody Urine Osmolality 142 50-1200 mOsm/kg Urine Random Creatinine 0.42 L 30-135 mg/dL Urine Random Sodium 48 40-220 mmol/l Test 08/25/25 17:23 Range/Units Prothrombin Time 10.5 9.6-11.6 SEC Prothromb Time International Ratio 0.99 0.85-1.15 Activated Partial Thromboplast Time 26.2 L 26.3-35.5 SEC Serum Osmolality 267 L 278-305 mOsm/kg Thyroid Stimulating Hormone (TSH) 3.43 0.36-3.74 uIU/mL Current Medications Medications (Trade) Dose Ordered Sig/Amy Route PRN Reason Start Time Stop Time Status Last Admin Dose Admin Acetaminophen (TYLenol 325MG TAB) 650 mg Q6H PRN PO MILD PAIN (1-3) 08/25/25 18:00 09/24/25 17:59 Amlodipine Besylate (NorvASC 5MG TAB) 5 mg DAILY PO 08/28/25 09:00 08/27/25 10:27 DC Amlodipine Besylate (NorvASC 5MG TAB) 10 mg DAILY PO 08/28/25 09:00 09/27/25 08:59 Aspirin (Aspirin 81mg Chew Tab) 81 mg DAILY PO 08/26/25 09:00 09/25/25 08:59 08/27/25 07:40 81 MG Atorvastatin Calcium (LIPItor 40MG) 40 mg HS PO 08/25/25 21:00 09/24/25 20:59 08/26/25 19:42 40 MG Carvedilol (Coreg 6.25MG) 6.25 mg BID PO 08/25/25 21:00 09/24/25 20:59 08/26/25 19:44 6.25 MG Clopidogrel Bisulfate (plaVIX 75MG) 75 mg DAILY PO 08/26/25 09:00 09/25/25 08:59 08/27/25 07:41 75 MG Enoxaparin Sodium (Lovenox) 30 mg DAILY SQ 08/26/25 09:00 08/27/25 10:15 DC 08/26/25 10:06 30 MG Famotidine (Pepcid 20mg Tab) 20 mg Q24H PO 08/25/25 21:00 09/24/25 20:59 08/26/25 19:42 20 MG Ipratropium [place] (AtrovENT UD) 0.5 mg Q6H PRN IH SHORTNESS OF BREATH 08/25/25 18:00 09/24/25 17:59 Isosorbide Mononitrate (Imdur 60mg Sr) 60 mg DAILY PO 08/26/25 09:00 09/25/25 08:59 08/27/25 07:40 60 MG Miscellaneous Medication (Famotidine ) 1 tab HS PO 08/25/25 21:00 08/25/25 18:36 DC Nicardipine HCl 25 mg/Sodium Chloride 250 ml @ 0 mls/hr PROTOCOL IV 08/25/25 18:00 08/27/25 10:17 DC 08/25/25 18:04 50 MLS/HR Nitroglycerin (Nitrostat) 0.4 mg AD PRN SL CHEST PAIN 08/25/25 18:00 09/24/25 17:59 Ondansetron HCl (zoFRAN 4MG INJ) 4 mg Q6H PRN IVP NAUSEA/VOMITING 08/25/25 18:00 09/24/25 17:59 Pantoprazole Sodium (PROTonix 40MG TAB) 40 mg DAILY PO 08/26/25 09:00 08/25/25 18:36 DC Sodium Chloride 1,000 ml @ 150 mls/hr Q6H40M IV 08/27/25 10:30 08/27/25 16:29 08/27/25 11:19 150 MLS/HR DIAGNOSTICS / RADIOLOGY: [ ] ASSESSMENT: Hypertensive emergency, POA History of uncontrolled hypertension, POA Recent hospitalization in [facility] [place] with hypertensive urgency, POA History of renal artery stenosis with findings of 95% stenosis of the left main renal artery and 30% stenosis of the right renal artery on CT from 08/17/2025, POA History of bilateral internal carotid artery stenosis, 50-69%, POA History of peripheral arterial disease POA History of superior mesenteric artery stenosis, POA History of nonobstructive coronary artery disease, POA History of GERD, POA Hyponatremia, POA Anemia, mild, POA PLAN: the patient has been seen and examined at bedside, case has been discussed with the RN, no acute events overnight, the time of my visit the patient remains admitted to the ICU, off nicardipine drip since this morning. The patient is alert oriented x3 at the time my visit, denies dizziness, no headache, no chest pain, shortness shortness for breath, no nausea, no vomiting, no abdominal pain. Plan is for the patient to have bilateral renal artery angiogram today by it trainer. Follow a.m. labs. Possible downgraded to the PCU if blood pressure stable. Discussed with the patient and at bedside, all questions answered, agreed and understood the information provided. NEURO: Minimize central acting medications as possible. Fall Precautions. Well lighted room through the day and minimize interruptions through the night to prevent acute delirium. PULMONARY: Supplemental 02 as needed BiPAP as necessary, for respiratory distress Titrate Fio2 to keep Spo2 > or = 90% DuoNebs and CPT as needed IS hourly while awake for pulmonary hygiene prn Out of bed to chair as tolerated Maintain aspiration precautions at all times CARDIOVASCULAR: Follow hemodynamics. Vital signs per facility protocol GI & NUTRITION: Continue nutritional support Aspirations precautions Prokinetic agents and laxatives as needed KIDNEYS & ELECTROLYTES: Strict monitoring of intake and output Daily weights Avoid nephrotoxic agents Monitor electrolytes and replace as needed Goal urine output of 30mL/hr or 0.5mL/kg/hr Medications to be dosed according to renal function. Avoid contrast if possible ENDOCRINE: Maintain blood glucose between 100-180 at all times. Insulin sliding scale for blood glucose management Hypoglycemia and hyperglycemia protocol in place INFECTIOUS DISEASE: Trend temperature, WBC and procalcitonin level Follow cultures, deescalate antibiotics as soon as possible. Panculture if new onset fever HEMATOLOGY & COAGULATION: Monitor H&H. Keep Hgb > 7 Transfuse 1 unit of PRBC for Hgb < 7 Transfuse 1 pack of platelets of platelets < 20, 000 Watch for any signs and symptoms of bleeding SKIN: Pressure ulcer prevention per facility protocol Specialty mattress as needed ORTHO/REHAB Continue PT/OT PRN: MEDICATIONS Tylenol 650 mg po every 4 hrs for fever zofran 4 mg IV every 6 hrs for n/v Hydralazine 5 mg IV every 4 hrs systolic pressure > 160 bowel regiment: lactulose 20 gm PO BID PRN constipation Supportive measures: Continue GI and DVT prophylaxis Disposition: Pending improvement in clinical condition All questions answered time spent: > 35 min PETROS LOZOYA MD Aug 27, 2025 13:26
--- NOTE | 2025-08-27 15:54 | CCATH ---
PROCEDURE NOTE PROCEDURES: * Selective right and left renal artery angiogram. * Left renal artery balloon angioplasty. * Left renal artery stenting. * Conscious sedation for 60 minutes. INDICATIONS: * Critical left renal artery stenosis with possible elvis kidney. * Malignant, renovascular hypertension. COMPLICATIONS: None. TOTAL CONTRAST: 70 mL. APPROACH: Left common femoral artery approach. DESCRIPTION OF PROCEDURE: The patient was taken to the Cardiac Vac Press Operator after appropriate operative consents were signed. She was prepped and draped in the usual fashion. After conscious sedation was administered, ultrasound guidance was utilized to access the left common femoral artery. At this point, a 6-Divehi sheath was advanced in retrograde fashion with modified surgical technique. A 6-Divehi RAMIREZ renal guide catheter was selected and advanced over an indwelling wire. It was noted that the aorta was heavily calcified as were both iliac arteries. The catheter was engaged in the ostium of the right renal artery, which was imaged in multiplane. This was noted to reveal no significant stenotic lesions in the entire right renal system. The catheter was then engaged in the ostium of the left renal artery. Catheter dampening ensued immediately. Imaging revealed critical, nearly total occlusion of the left renal artery with DARLEEN 1/2 to 1 flow in the left renal system. At this point, after heparinization, we were able to advance a 0.014 wire through the area of stenosis. This was a challenging task; however, it was successfully achieved. We were then able to utilize a small 2.5 NC balloon to allow us to advance additional equipment through. A 2.5 was placed and inflated to 20 atmospheres. This was followed by placement of a 5 mm NC balloon and inflated to 18 atmospheres. This allowed us to place a Herculink 5 x 12 stent, which was placed in the area of stenosis and inflated to 16 atmospheres. This was followed by placement of a 5 mm NC balloon, which was inflated to 18 atmospheres at 5.23 mm size. The final angiographic result was good. The sheath was removed and AngioSeal was utilized with good hemostasis. The patient tolerated the procedure well and left the catheter lab in stable condition. FINAL IMPRESSION: * Successful balloon angioplasty and stent placement with a 5 x 12 Herculink stent post dilated with 5 non-compliant balloons to 18 atmosphere at 5.23 mm in size with good final angiographic results. * The patient has heavily calcified abdominal aorta and iliac arteries. PLAN: Medical management. WISAM: 08/27/2025 10:24 AM TID: [id number] RECEIPT: [id number]
[2025-08-27] MEDS: amLODIPine 5 MG TAB PO SCH (20:23)
[2025-08-28] VITALS (33 sets, daily range): BP systolic 70–175; BP diastolic 34–75; PULSE 56–75; RESP 12–81; TEMP 97.6–98.5; O2SAT 97–99
[2025-08-28 04:53] LABS: NUCLEATED RED BLOOD CELLS 0.0 % (0.0-0.19); PLATELET COUNT (AUTO) 176.0 K/uL (130-400); RED BLOOD CELL COUNT(AUTO) 3.86 MIL/uL (4.00-5.50); RED CELL DISTRIBUTION WIDTH 13.8 % (11.0-15.5); WHITE BLOOD COUNT (AUTO) 4.4 K/uL (4.8-10.8)
[2025-08-28 05:08] LABS: CREATININE 0.7 mg/dL (0.5-1.0); GLOMERULAR FILTR. RATE CALC 88.0 mL/min (>90); GLUCOSE,RANDOM 93.0 mg/dL (70-105); SODIUM SERUM 138.0 mmol/L (136-145); UREA NITROGEN, BLOOD 9.0 mg/dL (7-18)
[2025-08-28] MEDS ORDERED: DOXAZOSIN MESYLATE 2 MG TABLET PO SCH ×2 (07:30)
--- NOTE | 2025-08-28 07:57 | PN ---
PROBLEM LIST: 1. Extensive peripheral vascular disease. 2. 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 3. Dyslipidemia. 4. 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 5. History of superior mesenteric artery stenosis, currently asymptomatic at this point. 6. History of hyperkalemia in the setting of MASSIMO and ARB use. 7. Status post multiple percutaneous and surgical interventions for peripheral vascular disease including right arm, bilateral femoral artery endarterectomies and placement by graft in the right common femoral artery with thrombectomy of the right brachial artery after percutaneous intervention. 8. History of heavy tobacco use, currently not a smoker. 9. History of atypical chest discomfort. 10. Moderate bilateral carotid artery stenosis with 60-69% range by carotid studies recently. 11. GERD. 12. 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 This patient has been evaluated by me at the request of Dr. Suzan Miner for additional evaluation and management of renal artery stenosis. The patient underwent an assessment with noninvasive studies that documented critical left renal artery stenosis. CT scan also confirmed the findings with a heavily calcified aorta and calcific ostial left renal artery stenosis. Angiography was performed yesterday. The patient had patent right renal artery; however, the left renal artery was critically stenosed with DARLEEN 1/2 to DARLEEN 1 flow with a fairly complex ostial calcified lesion. The patient was noted to have a smaller kidney on the left; however, during the study with contrast injection, we were able to see adequate filling in the left renal pelvis and ureter suggesting some activity in that kidney. The patient underwent successful balloon angioplasty and stenting of the left renal artery with excellent results. The procedure was performed by a left femoral approach given the fact that the patient has had right brachial axis complications with thrombectomy and has fairly small vessels and extensive peripheral vascular disease with calcification. Moreover, she had a graft on the right common femoral artery, which precluded utilization of that access site. Overnight, the patient has felt well. Her blood pressure has been better controlled; however, it is still in the 160 systolic range, which is far better than her admission parameters. The patient's heart rate is in the low 60s and her respiratory is 16. She is saturated at 98% on room air. On assessing the patient today, she is comfortable in no apparent distress. She is lying flat with no complaints. The access site in the left common femoral site appears to be healing nicely with no hematoma or ecchymosis. The distal pulses are intact. The patient's laboratory studies this morning are remarkable for a sodium of 138, potassium of 3.7, chloride 105, CO2 26, BUN is 9, creatinine is 0.7, down from 1.0 yesterday, GFR is 88 up from 58 yesterday, and the random glucose is 93. The patient's calcium is 8.3 and her magnesium is 1.9. Her serum cortisol morning sample on the was 18.6. White count is 4.4 with an H and H of 11.0 and 33.4 respectively. The platelet count is 176,000, all unchanged. This patient is currently maintained on carvedilol at low dose because of her bradycardia. She is on amlodipine 5 b.i.d., baby aspirin, clopidogrel, isosorbide, atorvastatin, famotidine, Atrovent, and p.r.n. medications. Given the patient's prior encounters with antihypertensive agents, we are limited in our choice of therapy; however, at this point, I have recommended addition of doxazosin at 8 mg daily. We will assess her response to that and continue to follow her. The patient will be ambulated. TID: [id number] RECEIPT: [id number]
[2025-08-28] MEDS: TERAZOSIN 5MG CAP PO SCH (07:59)
[2025-08-28] MEDS: MAGNESIUM 2GM PREMIX 50ML 50 ML IV ONE ×2 (08:02)
[2025-08-28] MEDS ORDERED: amLODIPine 5 MG TAB PO SCH ×2 (09:00)
--- NOTE | 2025-08-28 11:32 | PN ---
[facility] PROGRESS NOTE Date of Service: Aug 28, 2025 Time of Service: 11:30 SUBJECTIVE: 08/26 the patient has been seen and examined at bedside, case has been discussed with the RN, no acute events overnight, the time of my visit the patient remains admitted to the ICU, off nicardipine drip since this morning. BP 185/93, afebrile, saturating normal on room air. The patient is alert oriented x3 at the time my visit, denies dizziness, no headache, no chest pain, shortness shortness for breath, no nausea, no vomiting, no abdominal pain. Plan is for the patient to have bilateral renal artery angiogram tomorrow by display screen fabricator. Follow a.m. labs. Possible downgraded to the PCU if blood pressure stable. Discussed with the patient and at bedside, all questions answered, agreed and understood the information provided. 08/27 the patient has been seen and examined at bedside, case has been discussed with the RN, no acute events overnight, the time of my visit the patient remains admitted to the ICU, off nicardipine drip since this morning. The patient is alert oriented x3 at the time my visit, denies dizziness, no headache, no chest pain, shortness shortness for breath, no nausea, no vomiting, no abdominal pain. Plan is for the patient to have bilateral renal artery angiogram today by display screen fabricator. Follow a.m. labs. Possible downgraded to the PCU if blood pressure stable. Discussed with the patient and at bedside, all questions answered, agreed and understood the information provided. 08/28 the patient has been seen and examined at bedside, discussed with the RN, no acute events overnight, the patient underwent successful left renal artery stent placement 08/27/2025 by Cardiovascular physician, tolerated procedure well. At the time my visit today the patient feels mildly dizzy, she has been started on terazosin 10 mg p.o. daily and Coreg 3.125 mg p.o. q.12 hours. Patient also on amlodipine 5 mg p.o. b.i.d.. Remains on Imdur 60 mg p.o. daily. Earlier this morning blood pressure 118/59, heart rate in the low 50s. She denied chest pain, shortness shortness for breath, no nausea, no vomiting. Hemoglobin of 11.0, hematocrit 33.4, platelet count 176. We will continue close monitoring of the patient's blood pressure, continue to follow Cardiology input recommendation, possible downgraded to the PCCU today. Discussed with the patient and at bedside, all questions answered, agreed and understood the information provided. REVIEW OF SYSTEMS CONSTITUTIONAL: Denies fevers, chills, or night sweats. No unintentional weight loss reported. NEUROLOGICAL: Denies headache, amaurosis fugax, motor weakness, sensory deficit, vertigo/spinning sensation, gait abnormalities, or tremors. ENT: No hearing loss, otalgia, otorrhea, rhinitis, rhinorrhea, hoarseness, or sore throat. CARDIOVASCULAR: Denies any exertional angina, dyspnea on exertion, orthopnea, paroxysmal nocturnal dyspnea, palpitations, life-threatening arrhythmias, claudication. Reports Having poorly controlled blood pressure over the last several days. PULMONARY: Denies any shortness of breath, cough, phlegm/sputum, hemoptysis, pleuritic chest pain. SLEEP: Denies morning headaches, daytime somnolence or napping. Denies difficulty falling asleep, staying asleep, waking from sleep. Denies knowledge of snoring. GASTROINTESTINAL: Denies any type of dysphagia to either liquids or solids. Denies nausea, vomiting, pyrosis, early satiety, abdominal pain, diarrhea, constipation, or changes in stool consistency or caliber. Denies coffee-ground emesis, hematemesis, hematochezia, or melanotic stools. GENITOURINARY: Denies frequency, urgency, nocturia, hematuria or incontinence (Storage/Irritative symptoms.) Low urinary stream, straining to void, urinary intermittency or hesitancy, splitting of the voiding stream, terminal dribbling. ENDOCRINOLOGIC: Denies polyuria, polydipsia, polyphagia or heat/cold intolerances. HEMATOLOGIC: Denies thrombophilia/previous clots, or coagulopathy/bleeding disorders. ONCOLOGIC: Denies personal history of malignancy. DERMATOLOGIC: Denies rashes or pruritus. PSYCHIATRIC: Denies any suicidal or homicidal ideation. Denies hallucinations. PHYSICAL EXAM GENERAL APPEARANCE: The patient is awake, alert, and oriented, in no acute cardiopulmonary distress. NEUROLOGICAL: Cranial nerves II-XII grossly intact. Motor is 5/5 in bilateral upper and lower extremities proximal to distal. No sensory deficits. HEENT: Face is symmetric. Pupils are equal and reactive. Extraocular movements are intact. NECK: Supple. No JVD. No thyromegaly. No submental, submandibular, pre- /postauricular, occipital or supraclavicular lymphadenopathy. CHEST: Normal chest expansion. No Telemetry. LUNGS: Absence of any rales, rhonchi or any wheezing. CARDIOVASCULAR: Regular. S1 and S2 normal. No appreciable rubs, murmurs or gallops. ABDOMEN: Soft, nontender, and nondistended. There is no rebound, voluntary guarding, or rigidity. : Deferred. No [place]. EXTREMITIES: Non-edematous and not cyanotic. No clubbing. Good capillary refill. SKIN: No skin breakdown. Vital Signs (last 8hr) Date Time Temp Pulse Resp B/P (MAP) Pulse Ox O2 Delivery O2 Flow Rate FiO2 08/28/25 08:05 75 18 N/A Room Air 08/28/25 08:01 162/67 08/28/25 08:00 72 12 118/59 Room Air 08/28/25 08:00 98 Room Air* 0 08/28/25 07:00 65 21 175/75 99 Room Air 08/28/25 06:38 67 18 169/68 98 Room Air 08/28/25 06:00 60 21 160/61 98 Room Air 08/28/25 04:38 63 16 162/67 98 Room Air 08/28/25 04:00 97.9 08/28/25 04:00 99 Room Air* 0 08/28/25 03:50 64 18 N/A Room Air 08/28/25 03:38 64 13 159/68 99 Room Air LABS: Laboratory: Test 08/28/25 04:13 08/27/25 04:09 Range/Units White Blood Count 4.4 L 4.8-10.8 K/uL Red Blood Count 3.86 L 4.00-5.50 MIL/uL Hemoglobin 11.0 L 12.0-16.0 g/dL Hematocrit 33.4 L 36-48 % Mean Corpuscular Volume 86.5 79-99 fL Mean Corpuscular Hemoglobin 28.5 27.0-33.0 pg Mean Corpuscular Hemoglobin Concent 32.9 32.0-36.0 g/dL Red Cell Distribution Width 13.8 11.0-15.5 % Platelet Count 176 130-400 K/uL Mean Platelet Volume 10.3 7.5-10.5 fL Nucleated Red Blood Cells 0.0 0.0-0.19 % Sodium Level 138 136-145 mmol/L Potassium Level 3.7 3.5-5.1 mmol/L Chloride Level 105 101-111 mmol/L Carbon Dioxide Level 26 21-32 mmol/L Blood Urea Nitrogen 9 7-18 mg/dL Creatinine 0.7 0.5-1.0 mg/dL Glomerular Filtration Rate Calc 88 >90 mL/min Random Glucose 93 70-105 mg/dL Total Calcium 8.3 L 8.5-10.1 mg/dL Magnesium Level 1.90 1.80-2.40 mg/dL Total Bilirubin 0.4 0.2-1.0 mg/dL Aspartate Amino Transf (AST/SGOT) 19 10-37 U/L Alanine Aminotransferase (ALT/SGPT) 17 12-78 U/L Alkaline Phosphatase 51 50-136 U/L Total Protein 6.7 6.0-8.3 g/dL Albumin 3.2 L 3.5-5.0 g/dL Current Medications Medications (Trade) Dose Ordered Sig/Amy Route PRN Reason Start Time Stop Time Status Last Admin Dose Admin Acetaminophen (TYLenol 325MG TAB) 650 mg Q6H PRN PO MILD PAIN (1-3) 08/25/25 18:00 09/24/25 17:59 Amlodipine Besylate (NorvASC 5MG TAB) 5 mg BID PO 08/27/25 21:00 09/27/25 08:59 08/28/25 08:03 5 MG Amlodipine Besylate (NorvASC 5MG TAB) 5 mg DAILY PO 08/28/25 09:00 08/27/25 10:27 DC Amlodipine Besylate (NorvASC 5MG TAB) 10 mg DAILY PO 08/28/25 09:00 08/27/25 16:05 DC Aspirin (Aspirin 81mg Chew Tab) 81 mg DAILY PO 08/26/25 09:00 09/25/25 08:59 08/28/25 08:00 81 MG Atorvastatin Calcium (LIPItor 40MG) 40 mg HS PO 08/25/25 21:00 09/24/25 20:59 08/27/25 20:23 40 MG Carvedilol (Coreg 3.125MG) 3.125 mg BID PO 08/27/25 21:00 08/28/25 09:08 DC 08/28/25 08:01 3.125 MG Carvedilol (Coreg 3.125MG) 3.125 mg Q12H PO 08/28/25 20:00 09/27/25 19:59 Carvedilol (Coreg 6.25MG) 6.25 mg BID PO 08/25/25 21:00 08/27/25 16:05 DC 08/26/25 19:44 6.25 MG Clopidogrel Bisulfate (plaVIX 75MG) 75 mg DAILY PO 08/26/25 09:00 09/25/25 08:59 08/28/25 08:01 75 MG Doxazosin Mesylate (Doxazosin Mesylate) 8 mg ONCE PO 08/28/25 07:30 08/28/25 07:25 DC Doxazosin Mesylate (Doxazosin Mesylate) 8 mg ONCE PO 08/28/25 07:30 08/28/25 07:25 DC Enoxaparin Sodium (Lovenox) 30 mg DAILY SQ 08/26/25 09:00 08/27/25 10:15 DC 08/26/25 10:06 30 MG Famotidine (Pepcid 20mg Tab) 20 mg Q24H PO 08/25/25 21:00 09/24/25 20:59 08/27/25 20:23 20 MG Ipratropium [place] (AtrovENT UD) 0.5 mg Q6H PRN IH SHORTNESS OF BREATH 08/25/25 18:00 09/24/25 17:59 Isosorbide Mononitrate (Imdur 60mg Sr) 60 mg DAILY PO 08/26/25 09:00 09/25/25 08:59 08/28/25 08:01 60 MG Miscellaneous Medication (Famotidine ) 1 tab HS PO 08/25/25 21:00 08/25/25 18:36 DC Nicardipine HCl 25 mg/Sodium Chloride 250 ml @ 0 mls/hr PROTOCOL IV 08/25/25 18:00 08/27/25 10:17 DC 08/25/25 18:04 50 MLS/HR Nitroglycerin (Nitrostat) 0.4 mg AD PRN SL CHEST PAIN 08/25/25 18:00 09/24/25 17:59 Ondansetron HCl (zoFRAN 4MG INJ) 4 mg Q6H PRN IVP NAUSEA/VOMITING 08/25/25 18:00 09/24/25 17:59 Pantoprazole Sodium (PROTonix 40MG TAB) 40 mg DAILY PO 08/26/25 09:00 08/25/25 18:36 DC Sodium Chloride 1,000 ml @ 150 mls/hr Q6H40M IV 08/27/25 10:30 08/27/25 16:29 DC 08/27/25 11:19 150 MLS/HR Terazosin HCl (Hytrin 5mg Cap) 10 mg DAILY PO 08/28/25 07:30 08/28/25 09:11 DC 08/28/25 07:59 10 MG Terazosin HCl (Hytrin 5mg Cap) 10 mg Q24H PO 08/29/25 07:00 09/28/25 06:59 DIAGNOSTICS / RADIOLOGY: [ ] ASSESSMENT: Hypertensive emergency, POA History of uncontrolled hypertension, POA Recent hospitalization in [facility] [place] with hypertensive urgency, POA History of renal artery stenosis with findings of 95% stenosis of the left main renal artery and 30% stenosis of the right renal artery on CT from 08/17/2025, POA History of bilateral internal carotid artery stenosis, 50-69%, POA History of peripheral arterial disease POA History of superior mesenteric artery stenosis, POA History of nonobstructive coronary artery disease, POA History of GERD, POA Hyponatremia, POA Anemia, mild, POA PLAN: the patient has been seen and examined at bedside, discussed with the RN, no acute events overnight, the patient underwent successful left renal artery stent placement 08/27/2025 by Cardiovascular physician, tolerated procedure well. At the time my visit today the patient feels mildly dizzy, she has been started on terazosin 10 mg p.o. daily and Coreg 3.125 mg p.o. q.12 hours. Patient also on amlodipine 5 mg p.o. b.i.d.. Remains on Imdur 60 mg p.o. daily. Earlier this morning blood pressure 118/59, heart rate in the low 50s. She denied chest pain, shortness shortness for breath, no nausea, no vomiting. Hemoglobin of 11.0, hematocrit 33.4, platelet count 176. We will continue close monitoring of the patient's blood pressure, continue to follow Cardiology input recommendation, possible downgraded to the PCCU today. Discussed with the patient and at bedside, all questions answered, agreed and understood the information provided. NEURO: Minimize central acting medications as possible. Fall Precautions. Well lighted room through the day and minimize interruptions through the night to prevent acute delirium. PULMONARY: Supplemental 02 as needed BiPAP as necessary, for respiratory distress Titrate Fio2 to keep Spo2 > or = 90% DuoNebs and CPT as needed IS hourly while awake for pulmonary hygiene prn Out of bed to chair as tolerated Maintain aspiration precautions at all times CARDIOVASCULAR: Follow hemodynamics. Vital signs per facility protocol GI & NUTRITION: Continue nutritional support Aspirations precautions Prokinetic agents and laxatives as needed KIDNEYS & ELECTROLYTES: Strict monitoring of intake and output Daily weights Avoid nephrotoxic agents Monitor electrolytes and replace as needed Goal urine output of 30mL/hr or 0.5mL/kg/hr Medications to be dosed according to renal function. Avoid contrast if possible ENDOCRINE: Maintain blood glucose between 100-180 at all times. Insulin sliding scale for blood glucose management Hypoglycemia and hyperglycemia protocol in place INFECTIOUS DISEASE: Trend temperature, WBC and procalcitonin level Follow cultures, deescalate antibiotics as soon as possible. Panculture if new onset fever HEMATOLOGY & COAGULATION: Monitor H&H. Keep Hgb > 7 Transfuse 1 unit of PRBC for Hgb < 7 Transfuse 1 pack of platelets of platelets < 20, 000 Watch for any signs and symptoms of bleeding SKIN: Pressure ulcer prevention per facility protocol Specialty mattress as needed ORTHO/REHAB Continue PT/OT PRN: MEDICATIONS Tylenol 650 mg po every 4 hrs for fever zofran 4 mg IV every 6 hrs for n/v Hydralazine 5 mg IV every 4 hrs systolic pressure > 160 bowel regiment: lactulose 20 gm PO BID PRN constipation Supportive measures: Continue GI and DVT prophylaxis Disposition: Pending improvement in clinical condition All questions answered time spent: > 35 min PETROS LOZOYA MD Aug 28, 2025 11:31
--- NOTE | 2025-08-28 14:04 | PN ---
[facility] PROGRESS NOTE Date Patient Seen: Aug 28, 2025 Time of Visit: 14:04 Supervising Physician: Dr Lon Vega Consulting Physician: Hospitalist Outpatient Specialists: [ ] Inpatient Consults: [ ] PROBLEM LIST: successful balloon angioplasty and stenting of the left renal artery, 08/27/2025 Right renal artery stenosis Hypertensive urgency Hyperlipidemia History of CAD, mesenteric artery stenosis INTERVAL HISTORY: Patient seen and examined, a patient is comfortable, no distress, ambulatory Tolerating her diet No acute events overnight Vital signs are stable Afebrile Plan: Continue follow cardiology recs, we are off any Cardene drip, adjusting BP medications Site is stable Telemetry Patient cleared for downgrade Total care time 39 minutes, time excludes any procedures or educational time Critical care will sign off, thank you for allowing us to participate in the care of your patient. REVIEW OF SYSTEMS: 12 point ROS reviewed with patient. Pertinent positives mentioned above. Otherwise negative. PHYSICAL EXAM: GENERAL: alert, weak, awake oriented x 3 HEENT: EOMI, Sclera non icteric, moist mucosa NECK: Supple, no JVD, trachea midline LUNGS: Clear breath sounds bilaterally. No wheezes HEART: Regular rate and rhythm. Normal S1 and S2, without murmurs ABD: Abdomen soft, nontender. Bowel sounds present EXT: No clubbing cyanosis or edema NEURO: Alert and oriented to person, follows commands Vital Signs (last 8hr) Date Time Temp Pulse Resp B/P (MAP) Pulse Ox O2 Delivery O2 Flow Rate FiO2 08/28/25 13:25 63 69 104/43 99 Room Air 08/28/25 13:16 98.2 Room Air 08/28/25 12:46 65 15 100/66 99 Room Air 08/28/25 12:42 64 17 83/36 99 Room Air 08/28/25 12:37 63 13 70/34 99 Room Air 08/28/25 11:00 57 14 96/45 94 Room Air 08/28/25 10:00 56 20 102/45 99 Room Air 08/28/25 08:05 75 18 N/A Room Air 21 08/28/25 08:01 162/67 08/28/25 08:00 72 12 118/59 Room Air 08/28/25 08:00 98 Room Air* 0 21 08/28/25 07:30 97.9 Room Air 08/28/25 07:00 65 21 175/75 99 Room Air 08/28/25 06:38 67 18 169/68 98 Room Air LABS: Hematology Labs: Test 08/28/25 04:13 Range/Units White Blood Count 4.4 L 4.8-10.8 K/uL Red Blood Count 3.86 L 4.00-5.50 MIL/uL Hemoglobin 11.0 L 12.0-16.0 g/dL Hematocrit 33.4 L 36-48 % Mean Corpuscular Volume 86.5 79-99 fL Mean Corpuscular Hemoglobin 28.5 27.0-33.0 pg Mean Corpuscular Hemoglobin Concent 32.9 32.0-36.0 g/dL Red Cell Distribution Width 13.8 11.0-15.5 % Platelet Count 176 130-400 K/uL Mean Platelet Volume 10.3 7.5-10.5 fL Nucleated Red Blood Cells 0.0 0.0-0.19 % Chemistry Labs: Test 08/28/25 04:13 08/27/25 04:09 Range/Units Sodium Level 138 136-145 mmol/L Potassium Level 3.7 3.5-5.1 mmol/L Chloride Level 105 101-111 mmol/L Carbon Dioxide Level 26 21-32 mmol/L Blood Urea Nitrogen 9 7-18 mg/dL Creatinine 0.7 0.5-1.0 mg/dL Glomerular Filtration Rate Calc 88 >90 mL/min Random Glucose 93 70-105 mg/dL Total Calcium 8.3 L 8.5-10.1 mg/dL Magnesium Level 1.90 1.80-2.40 mg/dL Total Bilirubin 0.4 0.2-1.0 mg/dL Aspartate Amino Transf (AST/SGOT) 19 10-37 U/L Alanine Aminotransferase (ALT/SGPT) 17 12-78 U/L Alkaline Phosphatase 51 50-136 U/L Total Protein 6.7 6.0-8.3 g/dL Albumin 3.2 L 3.5-5.0 g/dL DIAGNOSTICS / RADIOLOGY RESULTS: [ ] PLAN NEURO: Minimize central acting medications as possible. Maintain fall precautions, adequate lighting during the day PULMONARY: Supplemental 02 as needed. Maintain aspiration precautions at all times CARDIOVASCULAR: Follow hemodynamics. Vital signs per facility protocol GI & NUTRITION: Continue with nutritional support. Continue stool softeners and laxatives as needed. KIDNEYS & ELECTROLYTES: Strict monitoring of intake, output and overall fluid balance. Avoid nephrotoxic medications to the extent possible. Medications to be dosed according to renal function. Monitor electrolytes and replace as needed ENDOCRINE: Maintain blood glucose between 100-180 at all times. Hypoglycemia protocol in place INFECTIOUS DISEASE: Trend temperature, WBC and procalcitonin level Follow cultures, deescalate antibiotics as soon as possible. Panculture if new onset fever ONCOLOGY/HEMATOLOGY/COAGULATION: Monitor for s/s of bleeding Monitor hemoglobin, coagulation studies as needed SKIN: Pressure ulcer prevention per facility protocol Specialty mattress ORTHO/REHAB: Continue PT/OT Prophylaxis: Continue GI and DVT prophylaxis Code Status: Full Resuscitation Disposition: NUZHAT SCHROEDER PAC Aug 28, 2025 14:04
[2025-08-28 15:15] LABS: ATYPICAL P-ANCA AB <1:20 titer (Neg:<1:20)
[2025-08-28] MEDS: 0.9% NACL 250ML 250 ML IV ONE (15:17)
--- NOTE | 2025-08-28 16:44 | NUR ---
report given to Jenaro Shanks. All questions answered.
[2025-08-29 00:23] VITALS: TEMP 97.7
[2025-08-29 03:37] VITALS: BP 144/62; PULSE 62; RESP 15; TEMP 97.8
[2025-08-29 06:22] LABS: NUCLEATED RED BLOOD CELLS 0.0 % (0.0-0.19); PLATELET COUNT (AUTO) 160.0 K/uL (130-400); RED BLOOD CELL COUNT(AUTO) 3.66 MIL/uL (4.00-5.50); RED CELL DISTRIBUTION WIDTH 13.7 % (11.0-15.5); WHITE BLOOD COUNT (AUTO) 3.5 K/uL (4.8-10.8)
[2025-08-29 06:47] LABS: ASPARTATE AMINOTRANSFERASE 19.0 U/L (10-37); CREATININE 0.7 mg/dL (0.5-1.0); GLOMERULAR FILTR. RATE CALC 88.0 mL/min (>90); GLUCOSE,RANDOM 101.0 mg/dL (70-105); SODIUM SERUM 138.0 mmol/L (136-145); TOTAL PROTEIN, SERUM 6.4 g/dL (6.0-8.3); UREA NITROGEN, BLOOD 7.0 mg/dL (7-18)
[2025-08-29] MEDS: TERAZOSIN 5MG CAP PO SCH (06:47)
[2025-08-29 07:00] VITALS: BP 121/62; PULSE 62; RESP 18; TEMP 97.5
--- NOTE | 2025-08-29 07:40 | PN ---
[facility] PROGRESS NOTE Date of Service: Aug 29, 2025 Time of Service: 07:39 SUBJECTIVE: 08/26 the patient has been seen and examined at bedside, case has been discussed with the RN, no acute events overnight, the time of my visit the patient remains admitted to the ICU, off nicardipine drip since this morning. BP 185/93, afebrile, saturating normal on room air. The patient is alert oriented x3 at the time my visit, denies dizziness, no headache, no chest pain, shortness shortness for breath, no nausea, no vomiting, no abdominal pain. Plan is for the patient to have bilateral renal artery angiogram tomorrow by trash collector truck driver. Follow a.m. labs. Possible downgraded to the PCU if blood pressure stable. Discussed with the patient and at bedside, all questions answered, agreed and understood the information provided. 08/27 the patient has been seen and examined at bedside, case has been discussed with the RN, no acute events overnight, the time of my visit the patient remains admitted to the ICU, off nicardipine drip since this morning. The patient is alert oriented x3 at the time my visit, denies dizziness, no headache, no chest pain, shortness shortness for breath, no nausea, no vomiting, no abdominal pain. Plan is for the patient to have bilateral renal artery angiogram today by trash collector truck driver. Follow a.m. labs. Possible downgraded to the PCU if blood pressure stable. Discussed with the patient and at bedside, all questions answered, agreed and understood the information provided. 08/28 the patient has been seen and examined at bedside, discussed with the RN, no acute events overnight, the patient underwent successful left renal artery stent placement 08/27/2025 by Cardiovascular physician, tolerated procedure well. At the time my visit today the patient feels mildly dizzy, she has been started on terazosin 10 mg p.o. daily and Coreg 3.125 mg p.o. q.12 hours. Patient also on amlodipine 5 mg p.o. b.i.d.. Remains on Imdur 60 mg p.o. daily. Earlier this morning blood pressure 118/59, heart rate in the low 50s. She denied chest pain, shortness shortness for breath, no nausea, no vomiting. Hemoglobin of 11.0, hematocrit 33.4, platelet count 176. We will continue close monitoring of the patient's blood pressure, continue to follow Cardiology input recommendation, possible downgraded to the PCCU today. Discussed with the patient and at bedside, all questions answered, agreed and understood the information provided. 08/29 the patient is seen and examined at bedside, discussed with the RN, no acute events overnight, patient downgraded to the PCU, patient is status post interval stent planning to the left renal artery 08/27/2025 by Cardiovascular physician, tolerated the procedure well. Today the patient alert oriented x3, hemodynamically stable, afebrile, saturating normal on room air. Further recommendations per cardiovascular physician, possible discharge home today. REVIEW OF SYSTEMS CONSTITUTIONAL: Denies fevers, chills, or night sweats. No unintentional weight loss reported. NEUROLOGICAL: Denies headache, amaurosis fugax, motor weakness, sensory deficit, vertigo/spinning sensation, gait abnormalities, or tremors. ENT: No hearing loss, otalgia, otorrhea, rhinitis, rhinorrhea, hoarseness, or sore throat. CARDIOVASCULAR: Denies any exertional angina, dyspnea on exertion, orthopnea, paroxysmal nocturnal dyspnea, palpitations, life-threatening arrhythmias, claudication. Reports Having poorly controlled blood pressure over the last several days. PULMONARY: Denies any shortness of breath, cough, phlegm/sputum, hemoptysis, pleuritic chest pain. SLEEP: Denies morning headaches, daytime somnolence or napping. Denies difficulty falling asleep, staying asleep, waking from sleep. Denies knowledge of snoring. GASTROINTESTINAL: Denies any type of dysphagia to either liquids or solids. Denies nausea, vomiting, pyrosis, early satiety, abdominal pain, diarrhea, constipation, or changes in stool consistency or caliber. Denies coffee-ground emesis, hematemesis, hematochezia, or melanotic stools. GENITOURINARY: Denies frequency, urgency, nocturia, hematuria or incontinence (Storage/Irritative symptoms.) Low urinary stream, straining to void, urinary intermittency or hesitancy, splitting of the voiding stream, terminal dribbling. ENDOCRINOLOGIC: Denies polyuria, polydipsia, polyphagia or heat/cold intolerances. HEMATOLOGIC: Denies thrombophilia/previous clots, or coagulopathy/bleeding disorders. ONCOLOGIC: Denies personal history of malignancy. DERMATOLOGIC: Denies rashes or pruritus. PSYCHIATRIC: Denies any suicidal or homicidal ideation. Denies hallucinations. PHYSICAL EXAM GENERAL APPEARANCE: The patient is awake, alert, and oriented, in no acute cardiopulmonary distress. NEUROLOGICAL: Cranial nerves II-XII grossly intact. Motor is 5/5 in bilateral upper and lower extremities proximal to distal. No sensory deficits. HEENT: Face is symmetric. Pupils are equal and reactive. Extraocular movements are intact. NECK: Supple. No JVD. No thyromegaly. No submental, submandibular, pre- /postauricular, occipital or supraclavicular lymphadenopathy. CHEST: Normal chest expansion. No Telemetry. LUNGS: Absence of any rales, rhonchi or any wheezing. CARDIOVASCULAR: Regular. S1 and S2 normal. No appreciable rubs, murmurs or gallops. ABDOMEN: Soft, nontender, and nondistended. There is no rebound, voluntary guarding, or rigidity. : Deferred. No [place]. EXTREMITIES: Non-edematous and not cyanotic. No clubbing. Good capillary refill. SKIN: No skin breakdown. Vital Signs (last 8hr) Date Time Temp Pulse Resp B/P (MAP) Pulse Ox O2 Delivery O2 Flow Rate FiO2 08/29/25 03:37 97.9 62 15 144/62 98 Room Air 08/29/25 00:23 97.7 LABS: Laboratory: Test 08/29/25 05:49 Range/Units White Blood Count 3.5 L 4.8-10.8 K/uL Red Blood Count 3.66 L 4.00-5.50 MIL/uL Hemoglobin 10.5 L 12.0-16.0 g/dL Hematocrit 32.2 L 36-48 % Mean Corpuscular Volume 88.0 79-99 fL Mean Corpuscular Hemoglobin 28.7 27.0-33.0 pg Mean Corpuscular Hemoglobin Concent 32.6 32.0-36.0 g/dL Red Cell Distribution Width 13.7 11.0-15.5 % Platelet Count 160 130-400 K/uL Mean Platelet Volume 10.2 7.5-10.5 fL Nucleated Red Blood Cells 0.0 0.0-0.19 % Sodium Level 138 136-145 mmol/L Potassium Level 4.2 3.5-5.1 mmol/L Chloride Level 105 101-111 mmol/L Carbon Dioxide Level 27 21-32 mmol/L Blood Urea Nitrogen 7 7-18 mg/dL Creatinine 0.7 0.5-1.0 mg/dL Glomerular Filtration Rate Calc 88 >90 mL/min Random Glucose 101 70-105 mg/dL Total Calcium 8.4 L 8.5-10.1 mg/dL Magnesium Level 2.10 1.80-2.40 mg/dL Total Bilirubin 0.4 0.2-1.0 mg/dL Aspartate Amino Transf (AST/SGOT) 19 10-37 U/L Alanine Aminotransferase (ALT/SGPT) 15 12-78 U/L Alkaline Phosphatase 51 50-136 U/L Total Protein 6.4 6.0-8.3 g/dL Albumin 3.0 L 3.5-5.0 g/dL Current Medications Medications (Trade) Dose Ordered Sig/Amy Route PRN Reason Start Time Stop Time Status Last Admin Dose Admin Acetaminophen (TYLenol 325MG TAB) 650 mg Q6H PRN PO MILD PAIN (1-3) 08/25/25 18:00 09/24/25 17:59 Amlodipine Besylate (NorvASC 5MG TAB) 5 mg BID PO 08/27/25 21:00 09/27/25 08:59 08/28/25 08:03 5 MG Amlodipine Besylate (NorvASC 5MG TAB) 5 mg DAILY PO 08/28/25 09:00 08/27/25 10:27 DC Amlodipine Besylate (NorvASC 5MG TAB) 10 mg DAILY PO 08/28/25 09:00 08/27/25 16:05 DC Aspirin (Aspirin 81mg Chew Tab) 81 mg DAILY PO 08/26/25 09:00 09/25/25 08:59 08/28/25 08:00 81 MG Atorvastatin Calcium (LIPItor 40MG) 40 mg HS PO 08/25/25 21:00 09/24/25 20:59 08/28/25 20:56 40 MG Carvedilol (Coreg 3.125MG) 3.125 mg BID PO 08/27/25 21:00 08/28/25 09:08 DC 08/28/25 08:01 3.125 MG Carvedilol (Coreg 3.125MG) 3.125 mg Q12H PO 08/28/25 20:00 12/7/25 19:59 08/28/25 20:56 3.125 MG Carvedilol (Coreg 6.25MG) 6.25 mg BID PO 08/25/25 21:00 08/27/25 16:05 DC 08/26/25 19:44 6.25 MG Clopidogrel Bisulfate (plaVIX 75MG) 75 mg DAILY PO 08/26/25 09:00 09/25/25 08:59 08/28/25 08:01 75 MG Doxazosin Mesylate (Doxazosin Mesylate) 8 mg ONCE PO 08/28/25 07:30 08/28/25 07:25 DC Doxazosin Mesylate (Doxazosin Mesylate) 8 mg ONCE PO 08/28/25 07:30 08/28/25 07:25 DC Enoxaparin Sodium (Lovenox) 30 mg DAILY SQ 08/26/25 09:00 08/27/25 10:15 DC 08/26/25 10:06 30 MG Famotidine (Pepcid 20mg Tab) 20 mg Q24H PO 08/25/25 21:00 09/24/25 20:59 08/28/25 20:56 20 MG Ipratropium [place] (AtrovENT UD) 0.5 mg Q6H PRN IH SHORTNESS OF BREATH 08/25/25 18:00 09/24/25 17:59 Isosorbide Mononitrate (Imdur 60mg Sr) 60 mg DAILY PO 08/26/25 09:00 09/25/25 08:59 08/28/25 08:01 60 MG Miscellaneous Medication (Famotidine ) 1 tab HS PO 08/25/25 21:00 08/25/25 18:36 DC Nicardipine HCl 25 mg/Sodium Chloride 250 ml @ 0 mls/hr PROTOCOL IV 08/25/25 18:00 08/27/25 10:17 DC 08/25/25 18:04 50 MLS/HR Nitroglycerin (Nitrostat) 0.4 mg AD PRN SL CHEST PAIN 08/25/25 18:00 09/24/25 17:59 Ondansetron HCl (zoFRAN 4MG INJ) 4 mg Q6H PRN IVP NAUSEA/VOMITING 08/25/25 18:00 09/24/25 17:59 Pantoprazole Sodium (PROTonix 40MG TAB) 40 mg DAILY PO 08/26/25 09:00 08/25/25 18:36 DC Sodium Chloride 1,000 ml @ 150 mls/hr Q6H40M IV 08/27/25 10:30 08/27/25 16:29 DC 08/27/25 11:19 150 MLS/HR Terazosin HCl (Hytrin 5mg Cap) 10 mg DAILY PO 08/28/25 07:30 08/28/25 09:11 DC 08/28/25 07:59 10 MG Terazosin HCl (Hytrin 5mg Cap) 10 mg Q24H PO 08/29/25 07:00 09/28/25 06:59 08/29/25 06:47 10 MG DIAGNOSTICS / RADIOLOGY: [ ] ASSESSMENT: Hypertensive emergency, POA History of uncontrolled hypertension, POA Recent hospitalization in [facility] [place] in 06/2025 with hypertensive urgency, POA History of renal artery stenosis with findings of 95% stenosis of the left main renal artery and 30% stenosis of the right renal artery on CT from 08/17/2025, POA History of bilateral internal carotid artery stenosis, 50-69%, POA History of peripheral arterial disease POA History of superior mesenteric artery stenosis, POA History of nonobstructive coronary artery disease, POA History of GERD, POA Hyponatremia, POA Anemia, mild, POA PLAN: the patient is seen and examined at bedside, discussed with the RN, no acute events overnight, patient downgraded to the PCU, patient is status post interval stent planning to the left renal artery 08/27/2025 by Cardiovascular physician, tolerated the procedure well. Today the patient alert oriented x3, hemodynamically stable, afebrile, saturating normal on room air. Further recommendations per cardiovascular physician, possible discharge home today. NEURO: Minimize central acting medications as possible. Fall Precautions. Well lighted room through the day and minimize interruptions through the night to prevent acute delirium. PULMONARY: Supplemental 02 as needed BiPAP as necessary, for respiratory distress Titrate Fio2 to keep Spo2 > or = 90% DuoNebs and CPT as needed IS hourly while awake for pulmonary hygiene prn Out of bed to chair as tolerated Maintain aspiration precautions at all times CARDIOVASCULAR: Follow hemodynamics. Vital signs per facility protocol GI & NUTRITION: Continue nutritional support Aspirations precautions Prokinetic agents and laxatives as needed KIDNEYS & ELECTROLYTES: Strict monitoring of intake and output Daily weights Avoid nephrotoxic agents Monitor electrolytes and replace as needed Goal urine output of 30mL/hr or 0.5mL/kg/hr Medications to be dosed according to renal function. Avoid contrast if possible ENDOCRINE: Maintain blood glucose between 100-180 at all times. Insulin sliding scale for blood glucose management Hypoglycemia and hyperglycemia protocol in place INFECTIOUS DISEASE: Trend temperature, WBC and procalcitonin level Follow cultures, deescalate antibiotics as soon as possible. Panculture if new onset fever HEMATOLOGY & COAGULATION: Monitor H&H. Keep Hgb > 7 Transfuse 1 unit of PRBC for Hgb < 7 Transfuse 1 pack of platelets of platelets < 20, 000 Watch for any signs and symptoms of bleeding SKIN: Pressure ulcer prevention per facility protocol Specialty mattress as needed ORTHO/REHAB Continue PT/OT PRN: MEDICATIONS Tylenol 650 mg po every 4 hrs for fever zofran 4 mg IV every 6 hrs for n/v Hydralazine 5 mg IV every 4 hrs systolic pressure > 160 bowel regiment: lactulose 20 gm PO BID PRN constipation Supportive measures: Continue GI and DVT prophylaxis Disposition: Pending improvement in clinical condition All questions answered time spent: > 35 min PETROS LOZOYA MD Aug 29, 2025 07:40
[2025-08-29 08:00] VITALS: O2SAT 98
[2025-08-29] MEDS ORDERED: CARV3.1262 PO (08:53)
[2025-08-29] MEDS ORDERED: TERA10CA4 PO (08:53)
[2025-08-29] MEDS ORDERED: AMLO5TAB4 PO (08:53)
[2025-08-29 11:00] VITALS: BP 108/52; PULSE 60; RESP 16; TEMP 97.4
--- NOTE | 2025-08-29 11:13 | PN ---
This is a 80-year-old female with multidrug resistant hypertension, critical left renal artery stenosis (95% by CTA), nonobstructive coronary artery disease, extensive peripheral vascular disease and history of hyperkalemia. She is status post balloon angioplasty and stenting of the left renal artery 08/27/2025. She is currently in sinus rhythm with heart rates in the 60s. Her most recent blood pressure is 121/62. White blood count 3.5, hemoglobin 10.5, hematocrit 32.2, platelets 160, creatinine 0.7, potassium 4.2, magnesium 2.10. She offers up no new cardiac complaints today. On exam, she is in no acute distress, regular rate and rhythm, lungs are clear to auscultation bilaterally, no lower extremity edema is noted, 2+ DP pulses bilaterally. Assessment: 1. Malignant renovascular hypertension. 2. Severe left renal arterial stenosis status post renal artery stenting 08/28/2025. 3. Extensive peripheral vascular disease involving carotid arteries, right upper and bilateral lower extremities. 4. Nonobstructive coronary artery disease. 5. History of hyperkalemia. Plan: 1. She has malignant renovascular hypertension with critical left renal artery stenosis status post renal artery stenting 08/28/2025. She had undergone adjustment to antihypertensive therapy with good results. 2. Continue amlodipine 5 mg twice daily, carvedilol 3.125 mg twice daily, isosorbide mononitrate 60 mg once daily and terazosin 10 mg once daily. 3. Continue dual antiplatelet therapy with aspirin 81 mg once daily and clopidogrel 75 mg once daily. 4. She can be discharged home from a cardiology standpoint. We will ensure follow-up with Dr. Suzan becker and Dr. Mojica. Vitals/Labs Vital Signs Date Time Temp Pulse Resp B/P (MAP) Pulse Ox O2 Delivery O2 Flow Rate FiO2 08/29/25 08:30 121/62 08/29/25 08:00 98 Room Air* 0 21 08/29/25 07:00 97.5 62 18 Laboratory Tests 08/29/25 05:49 ELGIN PAEZ Aug 29, 2025 11:12
--- NOTE | 2025-08-29 11:18 | PN ---
[facility] PROGRESS NOTE Date Patient Seen: Aug 29, 2025 Time of Visit: 11:16 Supervising Physician: Dr Lon Vega Consulting Physician: Hospitalist Outpatient Specialists: [ ] Inpatient Consults: [ ] PROBLEM LIST: Malignant renovascular hypertension successful balloon angioplasty and stenting of the left renal artery Right renal artery stenosis Hypertensive urgency Hyperlipidemia History of CAD, mesenteric artery stenosis INTERVAL HISTORY: Patient seen and examined, a patient is comfortable, no distress, ambulatory Tolerating her diet No acute events overnight Vital signs are stable Afebrile Plan: amlodipine 5 mg twice daily, carvedilol 3.125 mg twice daily, isosorbide mononitrate 60 mg once daily and terazosin 10 mg once daily. Continue dual antiplatelet therapy with aspirin 81 mg once daily and clopidogrel 75 mg once daily. Continue follow cardiology recs, Anticipate discharge, critical care will sign off, thank you for allowing us participate in the care of your patient. Total care time 41 minutes, time excludes any procedures or educational time REVIEW OF SYSTEMS: 12 point ROS reviewed with patient. Pertinent positives mentioned above. Otherwise negative. PHYSICAL EXAM: GENERAL: alert, weak, awake oriented x 3 HEENT: EOMI, Sclera non icteric, moist mucosa NECK: Supple, no JVD, trachea midline LUNGS: Clear breath sounds bilaterally. No wheezes HEART: Regular rate and rhythm. Normal S1 and S2, without murmurs ABD: Abdomen soft, nontender. Bowel sounds present EXT: No clubbing cyanosis or edema NEURO: Alert and oriented to person, follows commands Vital Signs (last 8hr) Date Time Temp Pulse Resp B/P (MAP) Pulse Ox O2 Delivery O2 Flow Rate FiO2 08/29/25 08:30 121/62 08/29/25 08:00 98 Room Air* 0 21 08/29/25 07:00 97.5 62 18 121/62 95 Room Air 08/29/25 03:37 97.9 62 15 144/62 98 Room Air LABS: Hematology Labs: Test 08/29/25 05:49 Range/Units White Blood Count 3.5 L 4.8-10.8 K/uL Red Blood Count 3.66 L 4.00-5.50 MIL/uL Hemoglobin 10.5 L 12.0-16.0 g/dL Hematocrit 32.2 L 36-48 % Mean Corpuscular Volume 88.0 79-99 fL Mean Corpuscular Hemoglobin 28.7 27.0-33.0 pg Mean Corpuscular Hemoglobin Concent 32.6 32.0-36.0 g/dL Red Cell Distribution Width 13.7 11.0-15.5 % Platelet Count 160 130-400 K/uL Mean Platelet Volume 10.2 7.5-10.5 fL Nucleated Red Blood Cells 0.0 0.0-0.19 % Chemistry Labs: Test 08/29/25 05:49 Range/Units Sodium Level 138 136-145 mmol/L Potassium Level 4.2 3.5-5.1 mmol/L Chloride Level 105 101-111 mmol/L Carbon Dioxide Level 27 21-32 mmol/L Blood Urea Nitrogen 7 7-18 mg/dL Creatinine 0.7 0.5-1.0 mg/dL Glomerular Filtration Rate Calc 88 >90 mL/min Random Glucose 101 70-105 mg/dL Total Calcium 8.4 L 8.5-10.1 mg/dL Magnesium Level 2.10 1.80-2.40 mg/dL Total Bilirubin 0.4 0.2-1.0 mg/dL Aspartate Amino Transf (AST/SGOT) 19 10-37 U/L Alanine Aminotransferase (ALT/SGPT) 15 12-78 U/L Alkaline Phosphatase 51 50-136 U/L Total Protein 6.4 6.0-8.3 g/dL Albumin 3.0 L 3.5-5.0 g/dL DIAGNOSTICS / RADIOLOGY RESULTS: [ ] PLAN NEURO: Minimize central acting medications as possible. Maintain fall precautions, adequate lighting during the day PULMONARY: Supplemental 02 as needed. Maintain aspiration precautions at all times CARDIOVASCULAR: Follow hemodynamics. Vital signs per facility protocol GI & NUTRITION: Continue with nutritional support. Continue stool softeners and laxatives as needed. KIDNEYS & ELECTROLYTES: Strict monitoring of intake, output and overall fluid balance. Avoid nephrotoxic medications to the extent possible. Medications to be dosed according to renal function. Monitor electrolytes and replace as needed ENDOCRINE: Maintain blood glucose between 100-180 at all times. Hypoglycemia protocol in place INFECTIOUS DISEASE: Trend temperature, WBC and procalcitonin level Follow cultures, deescalate antibiotics as soon as possible. Panculture if new onset fever ONCOLOGY/HEMATOLOGY/COAGULATION: Monitor for s/s of bleeding Monitor hemoglobin, coagulation studies as needed SKIN: Pressure ulcer prevention per facility protocol Specialty mattress ORTHO/REHAB: Continue PT/OT Prophylaxis: Continue GI and DVT prophylaxis Code Status: Full Resuscitation Disposition: NUZHAT SCHROEDER PAC Aug 29, 2025 11:18
--- NOTE | 2025-08-29 11:44 | NUR ---
NOTE DISCHARGE INSTRUCTIONS GIVEN TO PATIENT AND SPOUSE. BOTH STATED UNDERSTANDING ALL QUESTIONS ANSWERED.
--- NOTE | 2025-08-30 09:07 | DS ---
Discharge Summary Hospital Course Summary: DATE OF SERVICE 08/29/2025 THE PATIENT ADMITTED TO THE HOSPITAL AUGUST 25, 2025 WITH THE FOLLOWING HISTORY OF THE PRESENT ILLNESS: 80-year-old female with previous medical history of hypertension, hyperlipidemia, carotid artery disease, peripheral arterial disease, renal artery stenosis, superior mesenteric artery stenosis, history of nonobstructive coronary artery disease who presented as a direct admission from Dr. soy cordova. Patient states that she was following up in Dr. Soy cordova today when she was noted to have systolic blood pressure running between 190s-220s. Patient states that her blood pressure has been running uncontrolled over the last week. She has been keeping a log of blood pressure and reports that blood pressure has been uncontrolled. She was previously hospitalized in [place] in 06/2025 when she was admitted with hypertensive urgency with associated chest pain and she needed to be placed on nicardipine drip during the hospital stay. Patient states that she has been compliant with her home antihypertensives with carvedilol 6.25 mg twice daily and isosorbide mononitrate 60 mg daily. Patient reports that previously, she has been maintained on hydralazine which was stopped due to patient having severe adverse reaction including palpitation, lower extremity edema, malaise. She has also previously not tolerated amlodipine due to issues with lower extremity edema. She has been on losartan per documentation which has caused previously hyperkalemia. Patient denies any weakness of upper or lower extremity . patient reports that she gets some mild vision changes when her blood pressure runs high. She denies any active headache. She does not put any salt in her food to control her blood pressure and she states that she drinks about 100 oz of fluid daily. She has a previous workup recently including renal artery Doppler. Renal artery Doppler on 06/27/2025 showed close to 60% stenosis involving the left renal art samantha. Per clinic documentation, she had a outside hospital CT scan done which showed 95% stenosis involving the left main renal artery and 30% stenosis of the right renal artery and she is supposed to follow up with Dr. Acevedo as outpatient. Patient also had a lower extremity arterial duplex on 08/17/2025, which showed a severe worsening stenosis of the left proximal superficial fe moral artery and infrapopliteal which was noted to be worsening from previous studies. Patient has a previous history of right femoral artery stent placement in 2010 in [facility] and a left femoral artery surgical patch repair and right brachial artery patch repair in [facility] previously as well. Patient reports that she has been maintained on aspirin and Plavix daily. Denies any previous history of stroke. Has previous history of bilateral carotid artery stenosis of the ICAs of 50-69%. Recent coronary CT angiography on August 19, 2025 which showed [id number] nonobstructive coronary artery disease. On presentation to [facility], blood pressure has been running between 190s-230 systolic. Patient will be initiated on nicardipine drip and will be admitted to ICU. Home antihypertensives will be up titrated in the next 24-48 hours based on blood pressure trend. Consultation with Cardiology and critical Care Services will be requested. Patient will also have follow up with regards to further management of the renal artery stenosis and peripheral arterial disease. HOSPITAL COURSE 08/26 the patient has been seen and examined at bedside, case has been discussed with the RN, no acute events overnight, the time of my visit the patient remains admitted to the ICU, off nicardipine drip since this morning. BP 185/93, afebrile, saturating normal on room air. The patient is alert oriented x3 at the time my visit, denies dizziness, no headache, no chest pain, shortness shortness for breath, no nausea, no vomiting, no abdominal pain. Plan is for the patient to have bilateral renal artery angiogram tomorrow by maintenance manager. Follow a.m. labs. Possible downgraded to the PCU if blood pressure stable. Discussed with the patient and at bedside, all questions answered, agreed and understood the information provided. 08/27 the patient has been seen and examined at bedside, case has been discussed with the RN, no acute events overnight, the time of my visit the patient remains admitted to the ICU, off nicardipine drip since this morning. The patient is alert oriented x3 at the time my visit, denies dizziness, no headache, no chest pain, shortness shortness for breath, no nausea, no vomiting, no abdominal pain. Plan is for the patient to have bilateral renal artery angiogram today by maintenance manager. Follow a.m. labs. Possible downgraded to the PCU if blood pressure stable. Discussed with the patient and at bedside, all questions answered, agreed and understood the information provided. 08/28 the patient has been seen and examined at bedside, discussed with the RN, no acute events overnight, the patient underwent successful left renal artery stent placement 08/27/2025 by Cardiovascular physician, tolerated procedure well. At the time my visit today the patient feels mildly dizzy, she has been started on terazosin 10 mg p.o. daily and Coreg 3.125 mg p.o. q.12 hours. Patient also on amlodipine 5 mg p.o. b.i.d.. Remains on Imdur 60 mg p.o. daily. Earlier this morning blood pressure 118/59, heart rate in the low 50s. She denied chest pain, shortness shortness for breath, no nausea, no vomiting. Hemoglobin of 11.0, hematocrit 33.4, platelet count 176. We will continue close monitoring of the patient's blood pressure, continue to follow Cardiology input recommendation, possible downgraded to the PCCU today. Discussed with the patient and at bedside, all questions answered, agreed and understood the information provided. 08/29 the patient is seen and examined at bedside, discussed with the RN, no acute events overnight, patient downgraded to the PCU, patient is status post interval stent planning to the left renal artery 08/27/2025 by Cardiovascular physician, tolerated the procedure well. Today the patient alert oriented x3, hemodynamically stable, afebrile, saturating normal on room air. Further recommendations per cardiovascular physician, possible discharge home today if cleared by maintenance manager. Demand Equipment Repairer(s): Cardiology and critical Care Procedure(s): PATIENT: KARENA ROBB BMR#: [id number] : 1945 SEX: F AGE: 80 LOCATION: [facility] ROOM/BED: 217-1 ORDER DT: ACCESSION#: ORDER#: REPORT#: [id number] REASON: ORDERING PHYSICIAN: PROCEDURE: - PROCEDURE NOTE PROCEDURES: * Selective right and left renal artery angiogram. * Left renal artery balloon angioplasty. * Left renal artery stenting. * Conscious sedation for 60 minutes. INDICATIONS: * Critical left renal artery stenosis with possible elvis kidney. * Malignant, renovascular hypertension. COMPLICATIONS: None. TOTAL CONTRAST: 70 mL. APPROACH: Left common femoral artery approach. DESCRIPTION OF PROCEDURE: The patient was taken to the Cardiac Bias Machine Operator Helper after appropriate operative consents were signed. She was prepped and draped in the usual fashion. After conscious sedation was administered, ultrasound guidance was utilized to access the left common femoral artery. At this point, a 6-Icelandic sheath was advanced in retrograde fashion with modified surgical technique. A 6-Icelandic RAMIREZ renal guide catheter was selected and advanced over an indwelling wire. It was noted that the aorta was heavily calcified as were both iliac arteries. The catheter was engaged in the ostium of the right renal artery, which was imaged in multiplane. This was noted to reveal no significant stenotic lesions in the entire right renal system. The catheter was then engaged in the ostium of the left renal artery. Catheter dampening ensued immediately. Imaging revealed critical, nearly total occlusion of the left renal artery with DARLEEN 1/2 to 1 flow in the left renal system. At this point, after heparinization, we were able to advance a 0.014 wire through the area of stenosis. This was a challenging task; however, it was successfully achieved. We were then able to utilize a small 2.5 NC balloon to allow us to advance additional equipment through. A 2.5 was placed and inflated to 20 atmospheres. This was followed by placement of a 5 mm NC balloon and inflated to 18 atmospheres. This allowed us to place a Herculink 5 x 12 stent, which was placed in the area of stenosis and inflated to 16 atmospheres. This was followed by placement of a 5 mm NC balloon, which was inflated to 18 atmospheres at 5.23 mm size. The final angiographic result was good. The sheath was removed and AngioSeal was utilized with good hemostasis. The patient tolerated the procedure well and left the catheter lab in stable condition. FINAL IMPRESSION: * Successful balloon angioplasty and stent placement with a 5 x 12 Herculink stent post dilated with 5 non-compliant balloons to 18 atmosphere at 5.23 mm in size with good final angiographic results. * The patient has heavily calcified abdominal aorta and iliac arteries. PLAN: Medical management. TID: [id number] RECEIPT: [id number] DICTATED BY: Silas ACEVEDO II, MD DATE & TIME: 08/27/25 0924 ELECTRONICALLY SIGNED BY: DATE & TIME: Assessment/Plan: Final diagnosis Hypertensive emergency, POA History of uncontrolled hypertension, POA Recent hospitalization in [place] in 06/2025 with hypertensive urgency, POA History of renal artery stenosis with findings of 95% stenosis of the left main renal artery and 30% stenosis of the right renal artery on CT from 08/17/2025, POA History of bilateral internal carotid artery stenosis, 50-69%, POA History of peripheral arterial disease POA History of superior mesenteric artery stenosis, POA History of nonobstructive coronary artery disease, POA History of GERD, POA Hyponatremia, POA Anemia, mild, POA Discharge Instructions: The patient to be discharged home, to follow up with maintenance manager as an outpatient, return to the hospital if condition changes, patient agreed and understood the information provided. Home Medications: Active Scripts Terazosin HCl (Terazosin HCl) 10 Mg Capsule, 1 CAP PO DAILY for 30 Days, #30 CAP 1 Refill Prov:PETROS LOZOYA MD 08/29/25 Carvedilol (Coreg) 3.125 Mg Tablet, 3.125 MG PO Q12H for 30 Days, #60 TAB 2 Refills Prov:PETROS LOZOYA MD 08/29/25 Amlodipine Besylate (Norvasc 5Mg Tab) 5 Mg Tablet, 5 MG PO BID for 30 Days, #60 TAB 1 Refill Prov:PETROS LOZOAY MD 08/29/25 Reported Medications Ascorbic Acid (Vitamin C) 1,000 Mg Tablet, 1 TAB PO DAILY for 15 Days, #15 TAB 0 Refills DIRECTED 08/26/25 Vitamin B Complex (Vitamin B Complex) 1 Each Tablet, 1 EACH PO DAILY, TAB 08/26/25 Magnesium Oxide (Magnesium) 500 Mg Capsule, 500 MG PO DAILY, CAP 08/26/25 Clopidogrel Bisulfate (Clopidogrel) 75 Mg Tablet, 75 MG PO DAILY, TAB 08/25/25 Pantoprazole Sodium (Pantoprazole Sodium) 40 Mg Tablet.dr, 40 MG PO DAILY, TAB 08/25/25 Aspirin (Aspirin) 81 Mg Tab.chew, 81 MG PO DAILY, TAB.CHEW 08/25/25 Rosuvastatin Calcium (Rosuvastatin Calcium) 10 Mg Tablet, 1 TAB PO HS for 30 Days, #30 TAB 0 Refills 06/27/25 Isosorbide Mononitrate (Isosorbide Mononitrate ER) 60 Mg Tab.er.24h, 1 TAB PO DAILY for 30 Days, #30 TAB 0 Refills 06/27/25 Discontinued Reported Medications Carvedilol (Carvedilol) 6.25 Mg Tablet, 1 TAB PO BID for 30 Days, #60 TAB 0 Refills 06/27/25 Discontinued Scripts Famotidine (Famotidine) 40 Mg Tablet, 1 TAB PO HS for 30 Days, #30 TAB 0 Refills Prov:ARSENIO SPEARS MD 06/27/25 Time spent arranging discharge: 31-60 minutes PETROS LOZOYA MD Aug 30, 2025 09:07
[2025-09-01 10:36] LABS: ALDOSTERONE/RENIN RATIO 6.4; RENIN ACTIVITY 0.455
== END 2025-08-29 12:00 | disposition home or self-care (01) | DRG 253 ==
LOC: EDH 16:42 → EDHIP 17:31 → 2CH 08-26 03:54 → 2DH 08-29 05:54
PROVIDERS: ADMIT Internal Medicine; ATTEND Internal Medicine
PROC: 047A3DZ Dilation of Left Renal Artery with Intraluminal Device, Percutaneous Approach (ICD-10-PCS; principal; 2025-08-27)
PROC: B4181ZZ Fluoroscopy of Bilateral Renal Arteries using Low Osmolar Contrast (ICD-10-PCS; 2025-08-27)
DX: I16.1 Hypertensive emergency (principal); E87.1 Hypo-osmolality and hyponatremia; K55.1 Chronic vascular disorders of intestine; I15.0 Renovascular hypertension; D64.9 Anemia, unspecified; I70.1 Atherosclerosis of renal artery; E87.5 Hyperkalemia; E78.5 Hyperlipidemia, unspecified; I25.10 Atherosclerotic heart disease of native coronary artery without angina pectoris; I70.0 Atherosclerosis of aorta; I70.202 Unspecified atherosclerosis of native arteries of extremities, left leg; N27.0 Small kidney, unilateral; K21.9 Gastro-esophageal reflux disease without esophagitis; Z79.899 Other long term (current) drug therapy; Z87.891 Personal history of nicotine dependence; Z82.49 Family history of ischemic heart disease and other diseases of the circulatory system; Z88.8 Allergy status to other drugs, medicaments and biological substances
CPT/HCPCS: 36252; 36415; 37236; 70450; 80048; 80053; 82088; 82533; 82570; 83735; 83930; 83935; 84244; 84300; 84443; 85025; 85027; 85347; 85610; 85730; 86038; 86215; 86235; 86255; 86431; 99156; 99157; C1760; C1769; C1887; C1894; G0378; J1644; J1650; J2250; J3010; J3475; J3490; J7050; Q9967; C1725; C1876